=== PATIENT | female | born 1950 | race Caucasian/White ===

== ENCOUNTER → 2018-02-11 09:22 | Outpatient (CLI) | payer MEDICARE, OTHER, SELFPAY ==
[2018-02-11 10:36] LABS: Add Manual Diff / Slide Review NO; Basophils Percent Auto 0.4 % (0-2); Eosinophils Percent Auto 2.3 % (2-4); Hematocrit 42.7 % (36-46); Hemoglobin 14.7 g/dL (12.0-16.0); Lymphocytes Percent Auto 18.1 % (25-40); Mean Corpuscular HGB Conc 34.3 % (30-36); Mean Corpuscular Hemoglobin 29.9 PG (26-34); Mean Corpuscular Volume 87.1 fL (80-100); Monocytes Percent Auto 11.5 % (3-14); Neutrophils Absolute Auto 7100 /uL (3000-5900); Neutrophils Percent Auto 67.7 % (50-75); Platelet Count 259 X10^3/uL (150-400); Red Cell Distribution Width 13.4 % (11.6-14.8); White Blood Cell Count 10.4 X10^3/uL (4.5-11.0)
[2018-02-11 11:50] LABS: Alanine Aminotransferase 35 IU/L (9-52); Albumin 4.2 g/dL (3.5-5.0); Albumin Globulin Ratio 1.4 (1.0-2.8); Alkaline Phosphatase 79 U/L (38-126); Aspartate Aminotransferase 28 IU/L (14-36); BUN Creatinine Ratio 16.2 (6-22); Blood Urea Nitrogen 21 mg/dL (7-17); Calcium 9.4 mg/dL (8.4-10.2); Carbon Dioxide 32 mmol/L (22-32); Chloride 93 mmol/L (98-107); Cholesterol 135 mg/dL (140-199); Globulin 2.9 g/dL (1.7-4.1); Glucose 113 mg/dL (80-110); HDL Cholesterol 45 mg/dL (40-60); HEMOLYSIS < 15 (0-50); LDL Cholesterol Calculated 57 mg/dL (<100); Potassium 4.2 mmol/L (3.4-5.1); Sodium 136 mmol/L (137-145); Total Protein 7.1 g/dL (6.3-8.2); Triglycerides 167 mg/dL (35-150)
[2018-02-13 11:37] LABS: Hemoglobin A1C% w Est Avg Glu 6.5 % (4.0-6.0)
[2018-02-13 12:08] LABS: Thyroid Stimulating Hormone 6.34 uIU/mL (0.47-4.68)
[2018-02-13 13:49] LABS: Free T4, Direct Thyroxine 1.56 ng/dL (0.78-2.19)
== END ==
PROVIDERS: PCP Family Medicine; Visit Provider Nurse Practitioner Family
DX: I10 Essential (primary) hypertension (principal); E78.5 Hyperlipidemia, unspecified
CPT/HCPCS: 36415; 80053; 80061; 83036; 84439; 84443; 85025

== ENCOUNTER → 2018-02-13 11:17 | Outpatient (CLI) | payer MEDICARE, OTHER, SELFPAY | PROVIDERS: Family Provider Family Medicine; PCP Family Medicine; Visit Provider Nurse Practitioner Family | DX: Z00.00 Encounter for general adult medical examination without abnormal findings (principal) | CPT/HCPCS: 87086 ==

== ENCOUNTER → 2018-03-16 14:04 | Outpatient (CLI) | payer MEDICARE, OTHER, SELFPAY ==
--- NOTE | 2018-03-16 | DI.MG.S_ITS ---
BILATERAL DIGITAL SCREENING MAMMOGRAM 3D/2D WITH CAD WITH AUGMENTATION: 03/16/2018 CLINICAL: Patient presents for routine screening. S/P bilateral augmentation. Comparison is made to exams dated: 09/20/2011 mammogram and 02/18/2006 mammogram - [facility]. The tissue of both breasts is predominantly fatty. Current study was also evaluated with a Computer Aided Detection (CAD) system. Bilateral breast implants are stable. No significant masses, calcifications, or other findings are seen in either breast. There has been no significant interval change. IMPRESSION: NEGATIVE There is no mammographic evidence of malignancy. A 1 year screening mammogram is recommended. This exam was interpreted at Station ID: [id number]. NOTE: For mammograms, a report in lay terms will be sent to the patient. Approximately 15% of breast malignancies will not be visualized mammographically. In the management of a palpable breast mass, a negative mammogram must not discourage biopsy of a clinically suspicious lesion. Electronically Signed By: Angelica berger/ramon:03/16/2018 15:38:43 letter sent: Normal Exam ACR BI-RADS Category 1: Negative 3341F
== END ==
PROVIDERS: PCP Nurse Practitioner Family; Visit Provider Nurse Practitioner Family
DX: Z12.31 Encounter for screening mammogram for malignant neoplasm of breast (principal); Z78.0 Asymptomatic menopausal state; Z98.82 Breast implant status; E11.9 Type 2 diabetes mellitus without complications; Z87.891 Personal history of nicotine dependence
CPT/HCPCS: 77063; 77067; 77080

== ENCOUNTER → 2018-05-13 16:13 | Outpatient (CLI) | payer MEDICARE, OTHER, SELFPAY ==
[2018-05-13 18:36] LABS: Hemoglobin A1C% w Est Avg Glu 6.5 % (4.0-6.0)
[2018-05-13 19:02] LABS: TSH w/ Reflex to FT4 3.57 uIU/mL (0.47-4.68)
== END ==
PROVIDERS: PCP Nurse Practitioner Family; Visit Provider Registered Nurse
DX: Z00.8 Encounter for other general examination (principal); E11.9 Type 2 diabetes mellitus without complications; I10 Essential (primary) hypertension; R89.9 Unspecified abnormal finding in specimens from other organs, systems and tissues
CPT/HCPCS: 36415; 83036; 84443

== ENCOUNTER → 2018-08-12 12:24 | Outpatient (CLI) | payer MEDICARE, OTHER, SELFPAY ==
[2018-08-12 13:02] LABS: BUN Creatinine Ratio 15.7 (6-22); Blood Urea Nitrogen 22 mg/dL (7-17); Calcium 9.3 mg/dL (8.4-10.2); Carbon Dioxide 31 mmol/L (22-32); Chloride 97 mmol/L (98-107); Cholesterol 123 mg/dL (140-199); Estimated Glomerular Filt Rate 37.5 mL/min (>60); Glucose 104 mg/dL (80-110); HDL Cholesterol 45 mg/dL (40-60); HEMOLYSIS < 15 (0-50); LDL Cholesterol Calculated 56 mg/dL (<100); Potassium 3.6 mmol/L (3.4-5.1); Sodium 140 mmol/L (137-145); Triglycerides 109 mg/dL (35-150)
== END ==
PROVIDERS: Family Provider Registered Nurse; Visit Provider Internal Medicine Cardiovascular Disease
DX: I70.1 Atherosclerosis of renal artery (principal)
CPT/HCPCS: 36415; 80048; 80061

== ENCOUNTER → 2018-09-01 10:49 | Outpatient (CLI) | payer MEDICARE, OTHER, SELFPAY ==
[2018-09-01 15:03] LABS: BUN Creatinine Ratio 15.3 (6-22); Blood Urea Nitrogen 23 mg/dL (7-17); Calcium 8.8 mg/dL (8.4-10.2); Carbon Dioxide 31 mmol/L (22-32); Chloride 97 mmol/L (98-107); Estimated Glomerular Filt Rate 34.6 mL/min (>60); Glucose 109 mg/dL (80-110); HEMOLYSIS < 15 (0-50); Potassium 3.4 mmol/L (3.4-5.1); Sodium 139 mmol/L (137-145)
== END ==
PROVIDERS: PCP Student in an Organized Health Care Education/Training Program; Visit Provider Internal Medicine Cardiovascular Disease
DX: I25.119 Atherosclerotic heart disease of native coronary artery with unspecified angina pectoris (principal)
CPT/HCPCS: 36415; 80048

== ENCOUNTER → 2018-09-11 08:56 | Outpatient (CLI) | payer MEDICARE, OTHER, SELFPAY ==
[2018-09-11 09:53] LABS: BUN Creatinine Ratio 13.8 (6-22); Blood Urea Nitrogen 18 mg/dL (7-17); Carbon Dioxide 31 mmol/L (22-32); Chloride 99 mmol/L (98-107); Estimated Glomerular Filt Rate 40.9 mL/min (>60); Glucose 107 mg/dL (80-110); HEMOLYSIS < 15 (0-50); Potassium 3.6 mmol/L (3.4-5.1); Sodium 141 mmol/L (137-145)
== END ==
PROVIDERS: Family Provider Student in an Organized Health Care Education/Training Program; PCP Student in an Organized Health Care Education/Training Program; Visit Provider Internal Medicine Cardiovascular Disease
DX: I25.119 Atherosclerotic heart disease of native coronary artery with unspecified angina pectoris (principal)
CPT/HCPCS: 36415; 80048

== ENCOUNTER 2018-12-31 12:41 | Day surgery (SDC) | payer MEDICARE, OTHER, SELFPAY ==
[2018-12-31] VITALS (8 sets, daily range): BP systolic 95–122; BP diastolic 51–77; PULSE 75–86; RESP 10–15; TEMP 36.2–36.7; O2SAT 94–98; BMI 27.9
--- NOTE | 2018-12-31 | PATH_ITS ---
[facility] Accession Number: [id number] . 01 Material submitted: . PART A: gastrointestinal site - BIOPSY OF STOMACH BODY PART B: esophagus, E-G Junction - GE JUNCTION BIOPSIES PART C: colon - CECAL BIOPSY PART D: colon - RIGHT COLON POLYP . 01 Clinical history: . A: GASTRITIS . 02 Diagnosis: A. Stomach, Body, Biopsy: Body-type mucosa with mild chronic gastritis and intestinal metaplasia. Negative for Helicobacter organisms by immunohistochemistry. Negative for dysplasia and malignancy. . B. Gastroesophageal Junction, Biopsies: Squamous mucosa with reflux-related changes. Intraepithelial eosinophils are not increased. A PAS stain is negative for fungal organisms. Negative for dysplasia and malignancy. . C. Cecum, Biopsy: Colonic mucosa with no diagnostic abnormality. Negative for active, chronic and microscopic colitis. Negative for dysplasia and malignancy. . D. Right Colon, Polyp, Biopsy: Colonic mucosa with no diagnostic abnormality, consistent with polypoid redundancy. Negative for dysplasia and malignancy. . . . . . I01/04/2019 . 02 Comment: C. If the endoscopic impression of the cecal biopsy was of a polyp, no evidence of a serrated lesion or adenoma is identified, and this biopsy is most consistent with a polypoid redundancy. . . . . . 02 Electronically signed: . Cony Mckenzie MD, Pathologist NPI- [id number] . 01 Gross description: . Part A: BIOPSY OF STOMACH BODY: Received in formalin are 3 fragment(s) of arambula, soft tissue measuring 0.1 x 0.1 x 0.1 cm to 0.2 x 0.1 x 0.1 cm which is entirely submitted and submitted entirely in 1 cassette(s) Part B: GE JUNCTION BIOPSIES: Received in formalin are multiple fragment(s) of arambula, soft tissue measuring 0.1 x 0.1 x 0.1 cm to 0.2 x 0.2 x 0.2 cm which is entirely submitted and submitted entirely in 1 cassette(s) Part C: CECAL BIOPSY: Received in formalin is 1 fragment(s) of arambula, soft tissue measuring 0.1 x 0.1 x 0.1 cm which is entirely submitted and submitted entirely in 1 cassette(s) Part D: RIGHT OCLON POLYP: Received in formalin are 2 fragment(s) of arambula, soft tissue measuring 0.2 x 0.1 x 0.1 cm to 0.3 x 0.2 x 0.2 cm which is entirely submitted and submitted entirely in 1 cassette(s) /[facility] /[facility] . 02 Microscopic: . A. An immunohistochemical stain was performed to evaluate for Helicobacter organisms and is negative. The control stain showed appropriate reactivity. . B. An Alcian blue/PAS stain was performed to evaluate for fungal organisms and is negative for yeast and fungal organisms. The control stain showed appropriate reactivity. . C.-D. Additional deeper levels were examined. . * This test was developed and its performance characteristics determined by [employer]. It has not been cleared or approved by the U.S. Food and Drug Administration. The FDA has determined that such clearance or approval is not necessary. This test is used for clinical purposes. It should not be regarded as investigational or for research. . 02 Pathologist provided ICD-10: K29.70 . 02 CPT . 955986, 244579, 994521, 676918, H00950, 272340 Performed at: 01 [facility] [address] [facility], [place], [place] [id number] MD Lakhwinder Logan MD Phone: [phone] Performed at: 02 [facility] [address] [place], [place] [id number] MD Cony Mckenzie MD Phone: [phone]
--- NOTE | 2018-12-31 13:00 | PM.PREOP ---
Pre-operative Note Interval Note History & Physical reviewed/Exam performed by Physician: Yes Changes to H&P: No
[2018-12-31] MEDS: SODIUM CHLORIDE 0.9% 1,000 ML 200 ML IV (13:25)
[2018-12-31] MEDS: LIDOCAINE 4% SOLN 50 ML 20 ML TOP (13:52)
[2018-12-31] MEDS: TETRACAINE/BENZOCAINE/BUTAMBEN (CETACAINE) BOTTLE 1 SPRAY TOP (13:52)
[2018-12-31] MEDS: fentaNYL 250 MCG/5 ML INJ IV (13:54)
[2018-12-31] MEDS: MIDAZOLAM 5 MG/5 ML VIAL IV (13:54)
--- NOTE | 2018-12-31 14:40 | PM.OP.ENDO ---
Operative Date/Time/Diagnoses Date of procedure: 12/31/18 Time of procedure: 14:40 Pre-op diagnosis: 1. History of Kulkarni's 2. History of Colon Polyps Post-op diagnosis: same Procedure & Clinicians Study performed: 1. Diagnostic EGD with biopsies 2. Surveillance colonoscopy with biopsies Same procedure as scheduled: Yes Indications: 68yo F with long history of Kulkarni's and GERD symptoms. Also due for surveillance colonoscopy, had polyps at scope 5 years ago. Has a sister who had CRC, pt concerned because she says it was initially missed because it was 'higher than the scope went.' We discussed the limitations of endoscopy as well as the possibility that her sister's had to be prematurely aborted. All risks, benefits, and alternatives discussed and pt wishes to proceed. Surgeon: Rosenda Fowler Procedure Notes SCOAP/Timeout: 1353 Procedure in detail: After obtaining informed consent, the patient was brought to the GI suite and placed in the left lateral decubitus position on the examination table. After placement of appropriate monitors, the patient was given incremental doses of Versed and Fentanyl until an appropriate level of sedation was achieved. A time out was held per SCOAP protocol. A bite block was gently placed between the patient's teeth. The endoscope was lubricated and then passed into the patient's posterior oropharynx. The esophagus was cannulated under direct vision and the scope was passed to the second portion of the duodenum without difficulty. The scope was then withdrawn with careful examination of all areas of the upper GI tract and mucosa. In the stomach, the instrument was retroflexed and the GE junction examined. The scope was straightened and the procedure continued with examination of the remainder of the upper GI tract. Findings include gastritis seen as linear erosions throughout the body and greater curve; biopsy sent. Four quadrant biopsies of the GEJ were sent, evidence of inflammation but no salmon color mucosa noted. Air was aspirated from the stomach and the endoscope gently removed from the esophagus. The examination table was turned and we continued with the colonoscopy. A digital rectal examination was performed and did not reveal any masses or obstructing lesions but small external hemorrhoids are noted. The colonoscope was gently passed into the patient's anus and the entire colon navigated to the level of the cecum with minimal difficulty. Prep was adequate. Once in the cecum, the scope was slowly withdrawn being sure to go before and beyond all mucosal folds and prominences as able to get a thorough examination. A single small polyp in the right colon was noted and removed for biopsy. Other findings include a very small dark pink colored area just along the cecal ridge; noted while advancing so not thought to be scope injury. Not raised or suspicious looking but biopsied for abnormal tissue changes. At the level of the rectal vault, the scope was retroflexed and the internal anal canal was examined. The scope was straightened and air aspirated from the colon. The instrument was removed from the patient's body and the procedure was concluded. The patient was allowed to awaken from sedation without difficulty and taken to the post-anesthesia care unit in good condition. Scope withdrawal time: 10 min Findings: Kulkarni's esophagus (concern for, possibly healed as no salmon colored mucosa seen- biopsied), gastritis (linear erosions through body and greater curve as well as near fundus- biopsied), hiatal hernia (very small), polyp (right colon, 1mm, hyperplastic in appearance- biopsied) and other findings (small discolored area (dark pink) along cecal ridge, 2mm, not raised- biopsied ) Specimen(s): other (1. Gastritis 2. GEJ- 4 quadrant to evaluate for Kulkarni's 3. Cecal biopsy 4. Right colon polyp) Complications: none Impression: 1. Chronic gastritis 2. Possible Kulkarni's esophagus versus healed 3. Cecal discoloration 4. Right colon polyp- appears hyperplastic Recommendations: Colonscopy in 5 years and EGD in 3 years (pending pathology results) Follow up: weeks Disposition: PACU
== END 2018-12-31 15:40 | disposition home or self-care (01) ==
PROVIDERS: PCP Student in an Organized Health Care Education/Training Program; Visit Provider Surgery
PROC: 0DJ08ZZ Inspection of Upper Intestinal Tract, Via Natural or Artificial Opening Endoscopic (ICD-10-PCS; CPT 43235; principal; 2018-12-31 14:00)
PROC: 0DJD8ZZ Inspection of Lower Intestinal Tract, Via Natural or Artificial Opening Endoscopic (ICD-10-PCS; CPT 45378; 2018-12-31 14:00)
DX: Z86.010 Personal history of colon polyps (principal); Z87.19 Personal history of other diseases of the digestive system; Z80.0 Family history of malignant neoplasm of digestive organs; I10 Essential (primary) hypertension; E78.5 Hyperlipidemia, unspecified; K29.70 Gastritis, unspecified, without bleeding
CPT/HCPCS: 45380; 43239; 88305; 88312; 88342; J2250; J3010

== ENCOUNTER → 2019-04-12 10:37 | Outpatient (CLI) | payer MEDICARE, OTHER, SELFPAY ==
[2019-04-12 11:13] LABS: BUN Creatinine Ratio 13.1 (6-22); Blood Urea Nitrogen 21 mg/dL (7-17); Calcium 9.5 mg/dL (8.4-10.2); Carbon Dioxide 29 mmol/L (22-32); Chloride 101 mmol/L (98-107); Estimated Glomerular Filt Rate 32.1 mL/min (>60); Glucose 100 mg/dL (80-110); HEMOLYSIS < 15 (0-50); Potassium 4.1 mmol/L (3.4-5.1); Sodium 141 mmol/L (137-145)
== END ==
PROVIDERS: PCP Student in an Organized Health Care Education/Training Program; Visit Provider Internal Medicine Cardiovascular Disease
DX: I10 Essential (primary) hypertension (principal)
CPT/HCPCS: 36415; 80048

== ENCOUNTER → 2019-05-17 11:33 | Outpatient (CLI) | payer MEDICARE, OTHER, SELFPAY ==
[2019-05-17 13:48] LABS: BUN Creatinine Ratio 11.3 (6-22); Blood Urea Nitrogen 18 mg/dL (7-17); Calcium 9.8 mg/dL (8.4-10.2); Carbon Dioxide 29 mmol/L (22-32); Chloride 101 mmol/L (98-107); Estimated Glomerular Filt Rate 32.1 mL/min (>60); Glucose 95 mg/dL (80-110); HEMOLYSIS < 15 (0-50); Potassium 4.6 mmol/L (3.4-5.1); Sodium 142 mmol/L (137-145)
== END ==
PROVIDERS: PCP Student in an Organized Health Care Education/Training Program; Visit Provider Internal Medicine Cardiovascular Disease
DX: I10 Essential (primary) hypertension (principal)
CPT/HCPCS: 36415; 80048

== ENCOUNTER → 2019-05-26 11:06 | Outpatient (CLI) | payer MEDICARE, OTHER, SELFPAY ==
[2019-05-26 11:47] LABS: Hemoglobin A1C% w Est Avg Glu 5.6 % (4.0-6.0)
== END ==
PROVIDERS: PCP Student in an Organized Health Care Education/Training Program; Visit Provider Student in an Organized Health Care Education/Training Program
DX: E11.9 Type 2 diabetes mellitus without complications (principal)
CPT/HCPCS: 36415; 83036

== ENCOUNTER → 2019-08-13 10:20 | Outpatient (CLI) | payer MEDICARE, OTHER, SELFPAY ==
[2019-08-13 10:45] LABS: Bacteria Urine None Seen; RBC Urine None Seen (0-5/HPF)
[2019-08-13 11:15] LABS: Add Manual Diff / Slide Review NO; Basophils Absolute Auto 0 /uL (0-100); Basophils Percent Auto 0.6 % (0-2); Eosinophils Absolute Auto 200 /uL (0-450); Eosinophils Percent Auto 2.7 % (2-4); Hematocrit 40.6 % (36-46); Hemoglobin 13.7 g/dL (12.0-16.0); Lymphocytes Absolute Auto 1300 /uL (1100-4500); Lymphocytes Percent Auto 18.1 % (25-40); Mean Corpuscular HGB Conc 33.9 % (30-36); Mean Corpuscular Hemoglobin 29.5 PG (26-34); Mean Corpuscular Volume 87.2 fL (80-100); Monocytes Absolute Auto 800 /uL (0-900); Monocytes Percent Auto 11.2 % (3-14); Neutrophils Absolute Auto 4900 /uL (1500-7000); Neutrophils Percent Auto 67.4 % (50-75); Platelet Count 259 X10^3/uL (150-400); Red Blood Cell Count 4.65 X10^6/uL (4.0-5.2); Red Cell Distribution Width 13.7 % (11.6-14.8); White Blood Cell Count 7.2 X10^3/uL (4.5-11.0)
[2019-08-13 11:30] LABS: Albumin 4.3 g/dL (3.5-5.0); BUN Creatinine Ratio 10.7 (6-22); Blood Urea Nitrogen 16 mg/dL (7-17); Calcium 9.5 mg/dL (8.4-10.2); Carbon Dioxide 29 mmol/L (22-32); Chloride 104 mmol/L (98-107); Estimated Glomerular Filt Rate 34.5 mL/min (>60); Glucose 97 mg/dL (80-110); HEMOLYSIS < 15 (0-50); Magnesium 1.9 mg/dL (1.6-2.3); Phosphorous 3.9 mg/dL (2.8-4.1); Potassium 4.3 mmol/L (3.4-5.1); Sodium 142 mmol/L (137-145); Uric Acid 6.9 mg/dL (2.5-6.2)
[2019-08-13 12:04] LABS: Vitamin D 25 Hydroxy (D3) 33.2 ng/mL (30.0-100.0)
[2019-08-13 12:50] LABS: Appearance Urine UA CLEAR; Bilirubin Urine UA NEGATIVE (NEGATIVE); Color Urine UA YELLOW; Glucose Urine UA NEGATIVE (Negative); Ketones Urine UA NEGATIVE (NEGATIVE); Leukocyte Esterase Urine UA NEGATIVE (NEGATIVE); Nitrite Urine UA NEGATIVE (Negative); Occult Blood Urine UA NEGATIVE (Negative); Protein Urine UA NEGATIVE (Negative); Urobilinogen Urine UA 0.2 E.U./dL (0.2)
[2019-08-13 13:01] LABS: Squamous Epithelial Cell Urine 1-5 /HPF (0-5/HPF); WBC Urine 0-1/HPF (0-5/HPF)
[2019-08-13 13:02] LABS: Culture Indicated Urine Cult Not Indicated; Granular Casts Urine 0-1/LPF; Hyaline Casts Urine 5-10/LPF; Mucus Urine 1+ (Negative)
[2019-08-13 18:04] LABS: Microalbumi Creatinin Ratio Ur 61.6 ug/mg CR (<30); Microalbumin Urine Random 6.9 mg/dL (0-1.6)
[2019-08-17 15:48] LABS: Parathyroid Hormone Int 18 pg/mL (14-64)
== END ==
PROVIDERS: Family Provider Student in an Organized Health Care Education/Training Program; PCP Student in an Organized Health Care Education/Training Program; Referring Provider Internal Medicine Cardiovascular Disease; Visit Provider Internal Medicine Nephrology
DX: N18.4 Chronic kidney disease, stage 4 (severe) (principal)
CPT/HCPCS: 36415; 80069; 81001; 82043; 82306; 82570; 83735; 83970; 84550; 85025

== ENCOUNTER → 2019-09-03 10:27 | Outpatient (CLI) | payer MEDICARE, OTHER, SELFPAY ==
[2019-09-03 16:16] LABS: Protein (Total) Urine Random 13 mg/dL (0-12); Protein Creatinine Ratio Urine 0.11 GRAM/24H
== END ==
PROVIDERS: Family Provider Student in an Organized Health Care Education/Training Program; PCP Student in an Organized Health Care Education/Training Program; Visit Provider Internal Medicine Nephrology
DX: R80.9 Proteinuria, unspecified (principal)
CPT/HCPCS: 82570; 84156

== ENCOUNTER → 2019-12-20 11:06 | Outpatient (CLI) | payer MEDICARE, OTHER, SELFPAY ==
[2019-12-20 14:53] LABS: Add Manual Diff / Slide Review NO; Basophils Absolute Auto 0 /uL (0-100); Basophils Percent Auto 0.6 % (0-2); Eosinophils Absolute Auto 100 /uL (0-450); Hematocrit 42.2 % (36-46); Hemoglobin 14.6 g/dL (12.0-16.0); Lymphocytes Absolute Auto 1200 /uL (1100-4500); Lymphocytes Percent Auto 16.2 % (25-40); Mean Corpuscular HGB Conc 34.5 % (30-36); Monocytes Absolute Auto 700 /uL (0-900); Monocytes Percent Auto 10.2 % (3-14); Neutrophils Absolute Auto 5200 /uL (1500-7000); Platelet Count 250 X10^3/uL (150-400); Red Blood Cell Count 4.86 X10^6/uL (4.0-5.2); Red Cell Distribution Width 13.5 % (11.6-14.8); White Blood Cell Count 7.3 X10^3/uL (4.5-11.0)
[2019-12-20 16:55] LABS: BUN Creatinine Ratio 11.6 (6-22); Blood Urea Nitrogen 17 mg/dL (7-17); Calcium 9.5 mg/dL (8.4-10.2); Carbon Dioxide 29 mmol/L (22-32); Chloride 102 mmol/L (98-107); Estimated Glomerular Filt Rate 35.3 mL/min (>60); Glucose 85 mg/dL (80-110); HEMOLYSIS 17 (0-50); Magnesium 1.9 mg/dL (1.6-2.3); Phosphorous 3.2 mg/dL (2.8-4.1); Potassium 3.6 mmol/L (3.4-5.1); Sodium 142 mmol/L (137-145); Uric Acid 7.5 mg/dL (2.5-6.2)
[2019-12-20 17:05] LABS: Creatinine Urine Random 113.5 mg/dL
[2019-12-20 17:09] LABS: Microalbumi Creatinin Ratio Ur 95.1 ug/mg CR (<30); Microalbumin Urine Random 10.8 mg/dL (0-1.6)
[2019-12-20 17:20] LABS: Vitamin D 25 Hydroxy (D3) 35.2 ng/mL (30.0-100.0)
[2019-12-21 08:19] LABS: Parathyroid Hormone Int 79 pg/mL (15-65)
== END ==
PROVIDERS: Family Provider Student in an Organized Health Care Education/Training Program; PCP Student in an Organized Health Care Education/Training Program; Referring Provider Internal Medicine Nephrology; Visit Provider Internal Medicine Nephrology
DX: R80.9 Proteinuria, unspecified (principal)
CPT/HCPCS: 36415; 80048; 82043; 82306; 82570; 83735; 83970; 84100; 84550; 85025

== ENCOUNTER → 2020-02-08 11:19 | Outpatient (CLI) | payer MEDICARE, OTHER, SELFPAY ==
[2020-02-08 12:31] LABS: Hemoglobin A1C% w Est Avg Glu 5.8 % (4.0-6.0)
[2020-02-08 12:32] LABS: Cholesterol 111 mg/dL (140-199); HDL Cholesterol 39 mg/dL (40-60); LDL Cholesterol Calculated 52 mg/dL (<100); Triglycerides 98 mg/dL (35-150)
== END ==
PROVIDERS: Family Provider Student in an Organized Health Care Education/Training Program; PCP Student in an Organized Health Care Education/Training Program; Referring Provider Student in an Organized Health Care Education/Training Program; Visit Provider Student in an Organized Health Care Education/Training Program
DX: E11.9 Type 2 diabetes mellitus without complications (principal); E78.2 Mixed hyperlipidemia
CPT/HCPCS: 36415; 80061; 83036

== ENCOUNTER → 2020-03-02 11:59 | Outpatient (CLI) | payer MEDICARE, OTHER, SELFPAY ==
--- NOTE | 2020-03-02 | DI.MG.S_ITS ---
BILATERAL DIGITAL SCREENING MAMMOGRAM 3D/2D WITH CAD WITH AUGMENTATION: 03/02/2020 CLINICAL: Routine screening. Comparison is made to exams dated: 03/16/2018 mammogram, 09/20/2011 mammogram, and 02/18/2006 mammogram - [facility]. The tissue of both breasts is predominantly fatty. Current study was also evaluated with a Computer Aided Detection (CAD) system. Bilateral breast implants are present. No significant masses, calcifications, or other findings are seen in either breast. There has been no significant interval change. IMPRESSION: NEGATIVE There is no mammographic evidence of malignancy. A 1 year screening mammogram is recommended. This exam was interpreted at Station ID: [id number]. NOTE: For mammograms, a report in lay terms will be sent to the patient. Approximately 15% of breast malignancies will not be visualized mammographically. In the management of a palpable breast mass, a negative mammogram must not discourage biopsy of a clinically suspicious lesion. Electronically Signed By: Samir rosales/ramon:03/02/2020 17:12:00 letter sent: Normal Exam ACR BI-RADS Category 1: Negative 3341F
== END ==
PROVIDERS: Family Provider Student in an Organized Health Care Education/Training Program; PCP Student in an Organized Health Care Education/Training Program; Referring Provider Student in an Organized Health Care Education/Training Program; Visit Provider Student in an Organized Health Care Education/Training Program
DX: Z12.31 Encounter for screening mammogram for malignant neoplasm of breast (principal); Z13.820 Encounter for screening for osteoporosis; M85.852 Other specified disorders of bone density and structure, left thigh; Z78.0 Asymptomatic menopausal state; Z91.89 Other specified personal risk factors, not elsewhere classified; Z87.891 Personal history of nicotine dependence
CPT/HCPCS: 77063; 77067; 77080

== ENCOUNTER → 2020-04-17 09:45 | Outpatient (CLI) | payer MEDICARE, OTHER, SELFPAY ==
[2020-04-17 10:03] LABS: Bacteria Urine None Seen; RBC Urine None Seen (0-5/HPF)
[2020-04-17 11:09] LABS: BUN Creatinine Ratio 11.5 (6-22); Blood Urea Nitrogen 18 mg/dL (7-17); Calcium 9.2 mg/dL (8.4-10.2); Carbon Dioxide 31 mmol/L (22-32); Chloride 103 mmol/L (98-107); Estimated Glomerular Filt Rate 32.7 mL/min (>60); Glucose 98 mg/dL (80-110); HEMOLYSIS < 15 (0-50); Magnesium 1.9 mg/dL (1.6-2.3); Phosphorous 3.8 mg/dL (2.8-4.1); Potassium 4.7 mmol/L (3.4-5.1); Sodium 140 mmol/L (137-145); Uric Acid 6.9 mg/dL (2.5-6.2)
[2020-04-17 11:23] LABS: Vitamin D 25 Hydroxy (D3) 27.9 ng/mL (30.0-100.0)
[2020-04-17 12:12] LABS: Microalbumi Creatinin Ratio Ur 193.3 ug/mg CR (<30); Microalbumin Urine Random 69.6 mg/dL (0-1.6)
[2020-04-17 13:17] LABS: Appearance Urine UA CLEAR; Bilirubin Urine UA NEGATIVE (NEGATIVE); Color Urine UA YELLOW; Glucose Urine UA NEGATIVE (Negative); Ketones Urine UA NEGATIVE (NEGATIVE); Leukocyte Esterase Urine UA NEGATIVE (NEGATIVE); Nitrite Urine UA NEGATIVE (Negative); Occult Blood Urine UA NEGATIVE (Negative); Protein Urine UA 2+ (Negative); Urobilinogen Urine UA 0.2 E.U./dL (0.2)
[2020-04-17 13:25] LABS: WBC Urine 1-5/HPF (0-5/HPF)
[2020-04-17 13:26] LABS: Culture Indicated Urine Cult Not Indicated; Hyaline Casts Urine 1-5/LPF; Squamous Epithelial Cell Urine 0-1 /HPF (0-5/HPF)
[2020-04-18 06:36] LABS: Parathyroid Hormone Int 56 pg/mL (15-65)
== END ==
PROVIDERS: Family Provider Student in an Organized Health Care Education/Training Program; PCP Student in an Organized Health Care Education/Training Program; Referring Provider Internal Medicine Nephrology; Visit Provider Internal Medicine Nephrology
DX: N18.3 Chronic kidney disease, stage 3 (moderate) (principal)
CPT/HCPCS: 36415; 80048; 81001; 82043; 82306; 82570; 83735; 83970; 84100; 84550

== ENCOUNTER → 2020-06-19 10:32 | Outpatient (CLI) | payer MEDICARE, OTHER, SELFPAY ==
[2020-06-19 10:51] LABS: RBC Urine None Seen (0-5/HPF)
[2020-06-19 11:32] LABS: Appearance Urine UA CLEAR; Bilirubin Urine UA 1+ (NEGATIVE); Color Urine UA YELLOW; Glucose Urine UA NEGATIVE (Negative); Ketones Urine UA TRACE (NEGATIVE); Leukocyte Esterase Urine UA NEGATIVE (NEGATIVE); Nitrite Urine UA NEGATIVE (Negative); Occult Blood Urine UA NEGATIVE (Negative); Protein Urine UA 1+ (Negative); Urobilinogen Urine UA 0.2 E.U./dL (0.2)
[2020-06-19 11:46] LABS: Ictotest Urine Negative (Negative); Squamous Epithelial Cell Urine 5-10 /HPF (0-5/HPF); WBC Urine 1-5/HPF (0-5/HPF)
[2020-06-19 11:47] LABS: Bacteria Urine Few (2-10); Culture Indicated Urine Cult Not Indicated; Hyaline Casts Urine 30-100/LPF
[2020-06-19 12:08] LABS: BUN Creatinine Ratio 10.6 (6-22); Blood Urea Nitrogen 18 mg/dL (7-17); Carbon Dioxide 31 mmol/L (22-32); Chloride 103 mmol/L (98-107); Estimated Glomerular Filt Rate 29.8 mL/min (>60); Glucose 99 mg/dL (80-110); HEMOLYSIS < 15 (0-50); Magnesium 1.9 mg/dL (1.6-2.3); Phosphorous 3.8 mg/dL (2.8-4.1); Potassium 3.8 mmol/L (3.4-5.1); Sodium 139 mmol/L (137-145); Uric Acid 7.4 mg/dL (2.5-6.2)
[2020-06-19 12:10] LABS: Microalbumin Urine Random 15.2 mg/dL (0-1.6)
[2020-06-19 12:19] LABS: Vitamin D 25 Hydroxy (D3) 34.3 ng/mL (30.0-100.0)
[2020-06-19 12:36] LABS: Creatinine Urine Random 351.7 mg/dL; Microalbumi Creatinin Ratio Ur 43.2 ug/mg CR (<30)
[2020-06-20 07:18] LABS: Parathyroid Hormone Int 110 pg/mL (15-65)
== END ==
PROVIDERS: Family Provider Student in an Organized Health Care Education/Training Program; PCP Student in an Organized Health Care Education/Training Program; Referring Provider Physician Assistant; Visit Provider Physician Assistant
DX: N18.30 Chronic kidney disease, stage 3 unspecified (principal)
CPT/HCPCS: 36415; 80048; 81001; 82043; 82306; 82570; 83735; 83970; 84100; 84550

== ENCOUNTER → 2020-09-12 09:27 | Outpatient (CLI) | payer MEDICARE, OTHER, SELFPAY ==
[2020-09-12 09:48] LABS: RBC Urine None Seen (0-5/HPF)
[2020-09-12 10:37] LABS: BUN Creatinine Ratio 11.5 (6-22); Blood Urea Nitrogen 17 mg/dL (7-17); Calcium 8.8 mg/dL (8.4-10.2); Carbon Dioxide 32 mmol/L (22-32); Chloride 103 mmol/L (98-107); Glucose 120 mg/dL (80-110); HEMOLYSIS < 15 (0-50); Magnesium 1.8 mg/dL (1.6-2.3); Phosphorous 3.7 mg/dL (2.8-4.1); Potassium 3.8 mmol/L (3.4-5.1); Sodium 137 mmol/L (137-145); Uric Acid 7.2 mg/dL (2.5-6.2)
[2020-09-12 11:08] LABS: Vitamin D 25 Hydroxy (D3) 22.5 ng/mL (30.0-100.0)
[2020-09-12 11:29] LABS: Appearance Urine UA CLEAR; Bilirubin Urine UA NEGATIVE (NEGATIVE); Color Urine UA YELLOW; Glucose Urine UA NEGATIVE (Negative); Ketones Urine UA NEGATIVE (NEGATIVE); Leukocyte Esterase Urine UA TRACE (NEGATIVE); Nitrite Urine UA NEGATIVE (Negative); Occult Blood Urine UA NEGATIVE (Negative); Protein Urine UA TRACE (Negative); Urobilinogen Urine UA 0.2 E.U./dL (0.2)
[2020-09-12 12:05] LABS: Bacteria Urine Few (2-10); Squamous Epithelial Cell Urine 1-5 /HPF (0-5/HPF); Transitional Epi Cells Urine 0-1/HPF (0-5/HPF); WBC Urine 1-5/HPF (0-5/HPF)
[2020-09-12 12:14] LABS: Creatinine Urine Random 98.8 mg/dL
[2020-09-12 12:18] LABS: Microalbumi Creatinin Ratio Ur 145.7 ug/mg CR (<30); Microalbumin Urine Random 14.4 mg/dL (0-1.6)
[2020-09-13 12:49] LABS: Parathyroid Hormone Int 106 pg/mL (15-65)
== END ==
PROVIDERS: Family Provider Student in an Organized Health Care Education/Training Program; PCP Student in an Organized Health Care Education/Training Program; Referring Provider Internal Medicine Nephrology; Visit Provider Internal Medicine Nephrology
DX: N18.32 Chronic kidney disease, stage 3b (principal)
CPT/HCPCS: 36415; 80048; 81001; 82043; 82306; 82570; 83735; 83970; 84100; 84550

== ENCOUNTER → 2021-01-09 10:12 | Outpatient (CLI) | payer MEDICARE, OTHER, SELFPAY ==
[2021-01-09 10:43] LABS: RBC Urine None Seen (0-5/HPF)
[2021-01-09 11:26] LABS: Appearance Urine UA CLEAR; Bilirubin Urine UA NEGATIVE (NEGATIVE); Color Urine UA YELLOW; Glucose Urine UA NEGATIVE (Negative); Ketones Urine UA NEGATIVE (NEGATIVE); Leukocyte Esterase Urine UA NEGATIVE (NEGATIVE); Nitrite Urine UA NEGATIVE (Negative); Occult Blood Urine UA NEGATIVE (Negative); Protein Urine UA TRACE (Negative); Specific Gravity Urine UA 1.025 (1.000-1.035); Urobilinogen Urine UA 0.2 E.U./dL (0.2)
[2021-01-09 11:31] LABS: Add Manual Diff / Slide Review NO; Basophils Absolute Auto 100 /uL (0-100); Basophils Percent Auto 0.7 % (0-2); Eosinophils Absolute Auto 200 /uL (0-450); Hematocrit 40.1 % (36-46); Hemoglobin 13.5 g/dL (12.0-16.0); Lymphocytes Absolute Auto 1100 /uL (1100-4500); Lymphocytes Percent Auto 15.7 % (25-40); Mean Corpuscular HGB Conc 33.7 % (30-36); Mean Corpuscular Hemoglobin 28.6 PG (26-34); Mean Corpuscular Volume 85.1 fL (80-100); Monocytes Absolute Auto 800 /uL (0-900); Monocytes Percent Auto 11.3 % (3-14); Neutrophils Absolute Auto 5000 /uL (1500-7000); Neutrophils Percent Auto 69.3 % (50-75); Platelet Count 243 X10^3/uL (150-400); Red Blood Cell Count 4.71 X10^6/uL (4.0-5.2); Red Cell Distribution Width 13.9 % (11.6-14.8); White Blood Cell Count 7.3 X10^3/uL (4.5-11.0)
[2021-01-09 11:37] LABS: pH Urine UA 5.5 (4.5-8.0)
[2021-01-09 11:41] LABS: Squamous Epithelial Cell Urine 1-5 /HPF (0-5/HPF); WBC Urine 1-5/HPF (0-5/HPF)
[2021-01-09 11:42] LABS: Bacteria Urine Few (2-10); Culture Indicated Urine Cult Not Indicated; Hyaline Casts Urine 10-30/LPF
[2021-01-09 11:55] LABS: BUN Creatinine Ratio 14.1 (6-22); Blood Urea Nitrogen 22 mg/dL (7-17); Calcium 9.3 mg/dL (8.4-10.2); Carbon Dioxide 27 mmol/L (22-32); Chloride 105 mmol/L (98-107); Estimated Glomerular Filt Rate 32.9 mL/min (>60); Glucose 118 mg/dL (80-110); HEMOLYSIS < 15 (0-50); Potassium 3.9 mmol/L (3.4-5.1); Sodium 137 mmol/L (137-145); Uric Acid 7.6 mg/dL (2.5-6.2)
[2021-01-09 11:56] LABS: Creatinine Urine Random 222.4 mg/dL
[2021-01-09 11:59] LABS: Microalbumi Creatinin Ratio Ur 29.6 ug/mg CR (<30); Microalbumin Urine Random 6.6 mg/dL (0-1.6)
[2021-01-09 12:08] LABS: Vitamin D 25 Hydroxy (D3) 34.7 ng/mL (30.0-100.0)
[2021-01-10 08:42] LABS: Parathyroid Hormone Int 100 pg/mL (15-65)
== END ==
PROVIDERS: Family Provider Student in an Organized Health Care Education/Training Program; PCP Student in an Organized Health Care Education/Training Program; Referring Provider Internal Medicine Nephrology; Visit Provider Internal Medicine Nephrology
DX: N18.32 Chronic kidney disease, stage 3b (principal); N18.9 Chronic kidney disease, unspecified; M89.9 Disorder of bone, unspecified; R80.9 Proteinuria, unspecified; E55.9 Vitamin D deficiency, unspecified
CPT/HCPCS: 36415; 80048; 81001; 82043; 82306; 82570; 83970; 84550; 85025

== ENCOUNTER → 2021-05-10 09:14 | Outpatient (CLI) | payer MEDICARE, OTHER, SELFPAY ==
[2021-05-10 10:26] LABS: Add Manual Diff / Slide Review NO; Basophils Absolute Auto 100 /uL (0-100); Basophils Percent Auto 1.4 % (0-2); Eosinophils Absolute Auto 200 /uL (0-450); Hematocrit 42.1 % (36-46); Hemoglobin 13.8 g/dL (12.0-16.0); Lymphocytes Absolute Auto 1300 /uL (1100-4500); Lymphocytes Percent Auto 16.1 % (25-40); Mean Corpuscular HGB Conc 32.8 % (30-36); Mean Corpuscular Hemoglobin 27.9 PG (26-34); Mean Corpuscular Volume 85.3 fL (80-100); Monocytes Absolute Auto 1000 /uL (0-900); Monocytes Percent Auto 11.7 % (3-14); Neutrophils Absolute Auto 5500 /uL (1500-7000); Neutrophils Percent Auto 67.8 % (50-75); Platelet Count 284 X10^3/uL (150-400); Red Blood Cell Count 4.94 X10^6/uL (4.0-5.2); Red Cell Distribution Width 14.3 % (11.6-14.8); White Blood Cell Count 8.1 X10^3/uL (4.5-11.0)
[2021-05-10 10:39] LABS: BUN Creatinine Ratio 13.6 (6-22); Blood Urea Nitrogen 19 mg/dL (7-17); Carbon Dioxide 30 mmol/L (22-32); Chloride 103 mmol/L (98-107); Estimated Glomerular Filt Rate 37.2 mL/min (>60); Glucose 118 mg/dL (80-110); HEMOLYSIS 29 (0-50); Magnesium 1.8 mg/dL (1.6-2.3); Phosphorous 3.2 mg/dL (2.8-4.1); Potassium 4.1 mmol/L (3.4-5.1); Sodium 140 mmol/L (137-145); Uric Acid 7.7 mg/dL (2.5-6.2)
[2021-05-10 10:54] LABS: Vitamin D 25 Hydroxy (D3) 26.8 ng/mL (30.0-100.0)
[2021-05-10 11:01] LABS: Appearance Urine UA CLEAR; Bilirubin Urine UA NEGATIVE (NEGATIVE); Color Urine UA YELLOW; Glucose Urine UA NEGATIVE (Negative); Ketones Urine UA NEGATIVE (NEGATIVE); Leukocyte Esterase Urine UA TRACE (NEGATIVE); Nitrite Urine UA NEGATIVE (Negative); Occult Blood Urine UA NEGATIVE (Negative); Protein Urine UA NEGATIVE (Negative); Specific Gravity Urine UA 1.015 (1.000-1.035); Urobilinogen Urine UA 0.2 E.U./dL (0.2)
[2021-05-10 11:15] LABS: Bacteria Urine Moderate (10-30); Culture Indicated Urine Specimen Cultured; RBC Urine 0-1/HPF (0-5/HPF); Squamous Epithelial Cell Urine 1-5 /HPF (0-5/HPF); WBC Urine 1-5/HPF (0-5/HPF)
[2021-05-10 11:50] LABS: Creatinine Urine Random 131.1 mg/dL
[2021-05-10 11:54] LABS: Microalbumin Urine Random 4.2 mg/dL (0-1.6)
[2021-05-11 08:11] LABS: Parathyroid Hormone Int 133 pg/mL (15-65)
== END ==
PROVIDERS: Family Provider Student in an Organized Health Care Education/Training Program; PCP Student in an Organized Health Care Education/Training Program; Referring Provider Internal Medicine Nephrology; Visit Provider Internal Medicine Nephrology
DX: N18.32 Chronic kidney disease, stage 3b (principal)
CPT/HCPCS: 36415; 80048; 81001; 82043; 82306; 82570; 83735; 83970; 84100; 84550; 85025; 87086

== ENCOUNTER → 2021-07-05 14:30 | Outpatient (CLI) | payer MEDICARE, OTHER, SELFPAY ==
--- NOTE | 2021-07-05 14:33 | DI.US.S_ITS ---
PROCEDURE: US CAROTID DOPPLER BI INDICATIONS: MIGRAINE. CEREBROVASCULAR ACCIDENT. TECHNIQUE: Color and pulse Doppler interrogation was performed of both carotid systems, with image documentation and velocity measurements. COMPARISON: None. FINDINGS: Stenosis calculations are based on SRU (Society of Radiologists in Ultrasound) criteria. Right side: Brachial blood pressure: 142/86 mm Hg. Common carotid artery peak systolic velocity: 94 cm/sec. Internal carotid artery peak systolic velocity: 196 cm/sec. Internal carotid artery end diastolic velocity: 54 cm/sec. External carotid artery peak systolic velocity: 140 cm/sec. ICA/CCA peak systolic ratio: 2.1 . Early scale imaging description: Multiple soft and calcified plaques identified in the distal common carotid artery and at the carotid bifurcation extending into the origin of the intracranial carotid artery, producing 50-69 percent stenosis. Percent internal carotid artery stenosis: 50-60 percent stenosis of the right ICA origin. Approximately 50 percent narrowing of the bifurcation and the distal common carotid artery near the bifurcation. Vertebral artery: Flow direction is antegrade. Left side: Brachial blood pressure: 162/81 mm Hg. Common carotid artery peak systolic velocity: 115 cm/sec. Internal carotid artery peak systolic velocity: 98 cm/sec. Internal carotid artery end diastolic velocity: 31 cm/sec. External carotid artery peak systolic velocity: 189 cm/sec. ICA/CCA peak systolic ratio: 0.9 . Early scale imaging description: Mixed soft and calcified plaque in the distal common carotid artery, the carotid bifurcation, and at the origin of the right ICA. Percent internal carotid artery stenosis: Approximately 50 percent stenosis of the left common carotid artery terminus and bifurcation. Less than 50 percent stenosis of the left ICA origin.. Vertebral artery: Flow direction is antegrade. IMPRESSION: Moderate approximately 50-69 percent stenosis of the right ICA and right carotid bifurcation. Dictated by: Ming Moreno M.D. on 07/05/2021 at 16:45 Approved by: Ming Moreno M.D. on 07/05/2021 at 17:01
== END ==
PROVIDERS: Family Provider Student in an Organized Health Care Education/Training Program; PCP Student in an Organized Health Care Education/Training Program; Referring Provider Student in an Organized Health Care Education/Training Program; Visit Provider Student in an Organized Health Care Education/Training Program
DX: G43.109 Migraine with aura, not intractable, without status migrainosus (principal); I65.23 Occlusion and stenosis of bilateral carotid arteries; I63.9 Cerebral infarction, unspecified
CPT/HCPCS: 93880

== ENCOUNTER → 2021-08-01 10:51 | Outpatient (CLI) | payer MEDICARE, OTHER, SELFPAY ==
[2021-08-01 14:00] LABS: COVID19 -Nasal RAPID Negative (Negative)
== END ==
PROVIDERS: Family Provider Student in an Organized Health Care Education/Training Program; PCP Student in an Organized Health Care Education/Training Program; Referring Provider Internal Medicine; Visit Provider Internal Medicine
DX: Z20.822 Contact with and (suspected) exposure to COVID-19 (principal)
CPT/HCPCS: 87635; C9803

== ENCOUNTER → 2021-08-02 06:52 | Outpatient (CLI) | payer MEDICARE, OTHER, SELFPAY ==
--- NOTE | 2021-08-08 08:07 | P.PFT.S_ITS ---
Pulmonary Function Test Referral & Results Date Patient Seen: 08/02/21 Requesting provider: Vahid Ott Indication: Dyspnea Results: The spirometry demonstrates an FVC of 2.09 L which is 70% of predicted. The FEV1 was measured at 1.31 L which is 58% of predicted. The FEV1/FVC ratio was 63 which is 82% of predicted. Following the administration of bronchodilator there was a 48% improvement in FEF 25-75%. Lung volumes show an SVC of 2.34 L which is 82% of predicted. The diffusing capacity was measured at 11.0 which is 45% of predicted. No hemoglobin value was provided, so no correction for potential anemia could be made, if appropriate. The maximum voluntary ventilation was reduced Interpretation: This study demonstrates mild to moderate obstructive lung disease based on reduction FEV1 and a lesser reduction FEV1/FVC ratio. There is some evidence of benefit following bronchodilator administration based on improvement in small ai rway flow as above with change in FEF 25-75% There is a very mild reduction in lung volumes suggesting mild restrictive lung disease There is also moderate reduction diffusing capacity suggesting disease at the capillary alveolar level This is consistent with a diagnosis of COPD Clinical correlation suggested
== END ==
PROVIDERS: Family Provider Student in an Organized Health Care Education/Training Program; PCP Student in an Organized Health Care Education/Training Program; Referring Provider Student in an Organized Health Care Education/Training Program; Visit Provider Student in an Organized Health Care Education/Training Program
DX: J44.9 Chronic obstructive pulmonary disease, unspecified (principal); R06.00 Dyspnea, unspecified; Z87.891 Personal history of nicotine dependence
CPT/HCPCS: 94060; 94726; 94729

== ENCOUNTER → 2021-09-07 08:43 | Outpatient (CLI) | payer MEDICARE, OTHER, SELFPAY ==
[2021-09-07 10:13] LABS: Hemoglobin A1C% w Est Avg Glu 6.3 % (4.0-6.0)
[2021-09-07 10:23] LABS: Cholesterol 136 mg/dL (140-199); HDL Cholesterol 36 mg/dL (40-60); LDL Cholesterol Calculated 71 mg/dL (<100); Triglycerides 146 mg/dL (35-150)
[2021-09-07 10:41] LABS: Add Manual Diff / Slide Review NO; Basophils Absolute Auto 0 /uL (0-100); Basophils Percent Auto 0.5 % (0-2); Eosinophils Absolute Auto 300 /uL (0-450); Hematocrit 37.5 % (36-46); Hemoglobin 12.7 g/dL (12.0-16.0); Lymphocytes Absolute Auto 1300 /uL (1100-4500); Lymphocytes Percent Auto 15.7 % (25-40); Mean Corpuscular HGB Conc 33.8 % (30-36); Mean Corpuscular Hemoglobin 28.1 PG (26-34); Mean Corpuscular Volume 83.1 fL (80-100); Monocytes Absolute Auto 1000 /uL (0-900); Monocytes Percent Auto 11.6 % (3-14); Neutrophils Absolute Auto 5800 /uL (1500-7000); Neutrophils Percent Auto 69.2 % (50-75); Platelet Count 273 X10^3/uL (150-400); Red Blood Cell Count 4.51 X10^6/uL (4.0-5.2); Red Cell Distribution Width 14.6 % (11.6-14.8); White Blood Cell Count 8.4 X10^3/uL (4.5-11.0)
[2021-09-07 10:52] LABS: Creatinine Urine Random 95.4 mg/dL
[2021-09-07 10:54] LABS: BUN Creatinine Ratio 14.8 (6-22); Blood Urea Nitrogen 23 mg/dL (7-17); Calcium 9.2 mg/dL (8.4-10.2); Carbon Dioxide 30 mmol/L (22-32); Chloride 101 mmol/L (98-107); Estimated Glomerular Filt Rate 33.1 mL/min (>60); Glucose 95 mg/dL (80-110); HEMOLYSIS < 15 (0-50); Magnesium 1.8 mg/dL (1.6-2.3); Phosphorous 3.8 mg/dL (2.8-4.1); Potassium 3.9 mmol/L (3.4-5.1); Sodium 139 mmol/L (137-145); Uric Acid 6.7 mg/dL (2.5-6.2)
[2021-09-07 10:58] LABS: Microalbumi Creatinin Ratio Ur 82.8 ug/mg CR (<30); Microalbumin Urine Random 7.9 mg/dL (0-1.6)
[2021-09-07 11:09] LABS: Vitamin D 25 Hydroxy (D3) 34.1 ng/mL (30.0-100.0)
[2021-09-08 08:52] LABS: Parathyroid Hormone Int 168 pg/mL (15-65)
== END ==
PROVIDERS: Family Provider Student in an Organized Health Care Education/Training Program; PCP Student in an Organized Health Care Education/Training Program; Referring Provider Student in an Organized Health Care Education/Training Program; Visit Provider Student in an Organized Health Care Education/Training Program
DX: E11.9 Type 2 diabetes mellitus without complications (principal); E78.5 Hyperlipidemia, unspecified; N18.32 Chronic kidney disease, stage 3b; I63.9 Cerebral infarction, unspecified
CPT/HCPCS: 36415; 80048; 80061; 82043; 82306; 82570; 83036; 83735; 83970; 84100; 84550; 85025

== ENCOUNTER → 2022-01-09 08:53 | Outpatient (CLI) | payer MEDICARE, OTHER, SELFPAY ==
[2022-01-09 10:13] LABS: Add Manual Diff / Slide Review NO; Basophils Absolute Auto 100 /uL (0-100); Basophils Percent Auto 0.7 % (0-2); Eosinophils Absolute Auto 200 /uL (0-450); Eosinophils Percent Auto 2.7 % (2-4); Hematocrit 39.7 % (36-46); Hemoglobin 13.1 g/dL (12.0-16.0); Lymphocytes Absolute Auto 1200 /uL (1100-4500); Lymphocytes Percent Auto 17.2 % (25-40); Mean Corpuscular Hemoglobin 27.7 PG (26-34); Monocytes Absolute Auto 900 /uL (0-900); Neutrophils Absolute Auto 4800 /uL (1500-7000); Neutrophils Percent Auto 66.4 % (50-75); Platelet Count 285 X10^3/uL (150-400); Red Blood Cell Count 4.72 X10^6/uL (4.0-5.2); Red Cell Distribution Width 15.2 % (11.6-14.8); White Blood Cell Count 7.2 X10^3/uL (4.5-11.0)
[2022-01-09 10:34] LABS: Appearance Urine UA CLEAR; Bilirubin Urine UA 2+ (NEGATIVE); Color Urine UA YELLOW; Glucose Urine UA NEGATIVE (Negative); Ketones Urine UA TRACE (NEGATIVE); Leukocyte Esterase Urine UA TRACE (NEGATIVE); Nitrite Urine UA NEGATIVE (Negative); Occult Blood Urine UA NEGATIVE (Negative); Protein Urine UA 2+ (Negative); Specific Gravity Urine UA >=1.030 (1.000-1.035)
[2022-01-09 10:47] LABS: Bacteria Urine Moderate (10-30); Ictotest Urine Negative (Negative); RBC Urine None Seen (0-5/HPF); Squamous Epithelial Cell Urine 0-1 /HPF (0-5/HPF); WBC Urine 1-5/HPF (0-5/HPF)
[2022-01-09 10:48] LABS: Culture Indicated Urine Specimen Cultured
[2022-01-09 11:31] LABS: Creatinine Urine Random 377.1 mg/dL; Microalbumi Creatinin Ratio Ur 92.8 ug/mg CR (<30)
[2022-01-09 11:45] LABS: Blood Urea Nitrogen 21 mg/dL (7-17); Calcium 8.9 mg/dL (8.4-10.2); Carbon Dioxide 26 mmol/L (22-32); Chloride 103 mmol/L (98-107); Estimated Glomerular Filt Rate 37 mL/min (>60); Glucose 124 mg/dL (80-110); HEMOLYSIS < 15 (0-50); Magnesium 1.8 mg/dL (1.6-2.3); Phosphorous 4.1 mg/dL (2.8-4.1); Potassium 4.1 mmol/L (3.4-5.1); Sodium 140 mmol/L (137-145); Uric Acid 8.2 mg/dL (2.5-6.2)
[2022-01-09 11:54] LABS: Vitamin D 25 Hydroxy (D3) 32.7 ng/mL (30.0-100.0)
[2022-01-10 07:09] LABS: Parathyroid Hormone Int 148 pg/mL (15-65)
== END ==
PROVIDERS: Family Provider Student in an Organized Health Care Education/Training Program; PCP Student in an Organized Health Care Education/Training Program; Referring Provider Internal Medicine Nephrology; Visit Provider Internal Medicine Nephrology
DX: N18.32 Chronic kidney disease, stage 3b (principal)
CPT/HCPCS: 36415; 80048; 81001; 82043; 82306; 82570; 83735; 83970; 84100; 84550; 85025; 87086

== ENCOUNTER 2022-01-26 13:03 | Observation (INO) | payer MEDICARE, OTHER, SELFPAY ==
[2022-01-26] VITALS (21 sets, daily range): BP systolic 96–157; BP diastolic 59–103; PULSE 90–141; RESP 18–23; TEMP 36.7–37.8; O2SAT 91–98; BMI 31.8
--- NOTE | 2022-01-26 13:09 | DI.RAD.S_ITS ---
PROCEDURE: XR CHEST 1V INDICATIONS: suspected sepsis TECHNIQUE: One view of the chest was acquired. COMPARISON: None. FINDINGS: Surgical changes and devices: None. Lungs and pleura: Subtle density at the left lung base. There is mild hypoinflation. No pleural effusions or pneumothorax. Mediastinum: Mediastinal contours appear normal. Heart size is normal. Vascular calcifications within the aortic arch. Bones and chest wall: No suspicious bony lesions. Calcified breast implants. IMPRESSION: Subtle density at the left lung base likely represents atelectasis given mild hypoinflation. Developing consolidation not completely excluded. If further evaluation is necessary, consider dedicated upright frontal and lateral chest radiographs. Dictated by: Jaime Quiroz D.O. on 01/26/2022 at 12:42 Approved by: Jaime Quiroz D.O. on 01/26/2022 at 12:43
[2022-01-26 13:22] LABS: Add Manual Diff / Slide Review NO; Basophils Absolute Auto 0 /uL (0-100); Basophils Percent Auto 0.1 % (0-2); Eosinophils Absolute Auto 0 /uL (0-450); Eosinophils Percent Auto 0.1 % (2-4); Hematocrit 42.5 % (36-46); Hemoglobin 14.3 g/dL (12.0-16.0); Lymphocytes Absolute Auto 800 /uL (1100-4500); Lymphocytes Percent Auto 4.1 % (25-40); Mean Corpuscular HGB Conc 33.7 % (30-36); Mean Corpuscular Hemoglobin 27.9 PG (26-34); Mean Corpuscular Volume 82.6 fL (80-100); Monocytes Absolute Auto 1400 /uL (0-900); Monocytes Percent Auto 7.7 % (3-14); Neutrophils Absolute Auto 16100 /uL (1500-7000); Platelet Count 258 X10^3/uL (150-400); Red Blood Cell Count 5.14 X10^6/uL (4.0-5.2); Red Cell Distribution Width 14.6 % (11.6-14.8); White Blood Cell Count 18.3 X10^3/uL (4.5-11.0)
[2022-01-26] MEDS: SODIUM CHLORIDE 0.9% 1,000 ML 1000 ML IV ×2 (13:30→13:51)
[2022-01-26 13:39] LABS: Alanine Aminotransferase 16 IU/L (<35); Albumin 4.7 g/dL (3.5-5.0); Albumin Globulin Ratio 1.4 (1.0-2.8); Alkaline Phosphatase 96 U/L (38-126); Aspartate Aminotransferase 27 IU/L (14-36); BUN Creatinine Ratio 11.3 (6-22); Blood Urea Nitrogen 16 mg/dL (7-17); Calcium 8.8 mg/dL (8.4-10.2); Carbon Dioxide 29 mmol/L (22-32); Chloride 100 mmol/L (98-107); Estimated Glomerular Filt Rate 40 mL/min (>60); Globulin 3.3 g/dL (1.7-4.1); Glucose 132 mg/dL (80-110); HEMOLYSIS 30 (0-50); Lipase 68 U/L (23-300); Potassium 3.8 mmol/L (3.4-5.1); Sodium 136 mmol/L (137-145)
[2022-01-26 13:41] LABS: Lactate (Lactic Acid) 1.3 mmol/L (0.7-2.1)
[2022-01-26 13:41] LABS: COVID19 -Nasal RAPID Negative (Negative)
[2022-01-26] MEDS: cefTRIAXone 1,000 MG in SODIUM CHLORIDE 0.9% 100 ML 200 MG IV (13:50)
[2022-01-26] MEDS: VANCOMYCIN 1,000 MG/200 ML PIGGYBACK 200 MG IV (13:51)
[2022-01-26 13:55] LABS: Procalcitonin 0.12 ng/mL (<0.5)
[2022-01-26 14:10] LABS: Appearance Urine UA CLEAR; Bilirubin Urine UA NEGATIVE (NEGATIVE); Color Urine UA YELLOW; Glucose Urine UA NEGATIVE (Negative); Ketones Urine UA NEGATIVE (NEGATIVE); Leukocyte Esterase Urine UA NEGATIVE (NEGATIVE); Nitrite Urine UA NEGATIVE (Negative); Occult Blood Urine UA NEGATIVE (Negative); Protein Urine UA NEGATIVE (Negative); Urobilinogen Urine UA 0.2 E.U./dL (0.2)
--- NOTE | 2022-01-26 14:31 | ED.GENADULT ---
HPI - General Adult General Chief complaint: Upper Respiratory Symptoms Stated complaint: cough Time Seen by Provider: 01/26/22 13:20 Source: patient, family and EMS Mode of arrival: EMS Limitations: no limitations History of Present Illness HPI narrative: 71-year-old female who is brought in by EMS. Her daughter is at bedside. It appears that yesterday the patient started to not feel well. They are fairly nonspecific about the symptoms. She went to bed last night feeling very poorly. Overnight she did seem to worsen and started to develop shortness of breath and cough. This morning the patient's daughter initially stated that she was altered however it appears that it was more of a somnolence as she was having a difficult time waking her. That seems to now have improved. Patient does express some shortness of breath and cough but denies chest pain, no headache, is having a sore throat, no abdominal pain no nausea or vomiting. No urinary symptoms. No change in bowel habits. No rashes. Related Data Home Medications Medication Instructions Recorded Confirmed amlodipine 10 mg tablet 10 mg PO DAILY 10/21/18 01/26/22 furosemide 40 mg tablet 40 mg PO DAILY 10/21/18 01/26/22 labetalol 300 mg tablet 300 mg PO BID 10/21/18 01/26/22 Excedrin Tension Headache 0.5 tab PO BID PRN Headache 12/31/18 01/26/22 famotidine 20 mg tablet 20 mg PO DAILY 01/26/22 01/26/22 Previous Rx's Medication Instructions Recorded atorvastatin 40 mg tablet (Lipitor) 40 mg PO HS #30 tabs 04/26/21 clotrimazole-betamethasone 1 1 applic topical BID PRN rash #45 07/03/21 %-0.05 % topical cream grams nystatin 100,000 unit/gram topical 1 applic topical BID PRN Rash #30 07/03/21 powder grams albuterol sulfate 90 mcg/actuation 2 puff inhalation Q4-6H PRN 08/08/21 aerosol inhaler shortness of breath or wheezing #8.5 grams Allergies Allergy/AdvReac Type Severity Reaction Status Date / Time morphine Allergy Intermediate ITCHING Verified 07/03/21 10:30 hydrocodone Allergy Mild ITCH Verified 07/03/21 10:30 lisinopril Allergy Mild BACK Verified 07/03/21 10:30 PAIN/HAND NUMBNESS Review of Systems Review of Systems ROS Unobtainable: All systems reviewed & are unremarkable except as noted in HPI and below Patient History Medical History CVA (cerebral vascular accident) Hypertension Family History Father Hypertension Mother Gallstones Sister Hypertension Brother Hypertension Social History Smoking Status: Former smoker Smoking Status: Former smoker Substance Use Type: does not use Exam Initial Vital Signs Initial Vital Signs: Vital Signs Temperature 100.1 F H 01/26/22 13:03 Pulse Rate 141 H 01/26/22 13:03 Respiratory Rate 18 01/26/22 13:03 Blood Pressure 144/88 H 01/26/22 13:03 Pulse Oximetry 91 01/26/22 13:03 Oxygen Delivery Method 01/26/22 13:03 Const General: cooperative, comfortable and No acute distress HENMT Head: normal to inspection and normocephalic Eyes General: Yes appearance normal, both eyes and all related structures Chest Chest: normal inspection of the chest Resp Effort & Inspection: normal respiratory effort, not labored, no respiratory distress and tachypneic Auscultation: clear to auscultation bilaterally Cardio Rate: tachycardic Rhythm: regular rhythm GI Inspection: normal to inspection and non-distended Palpation: soft and No tender Skin General: no rashes or lesions noted Neuro General: patient alert, patient awake, patient oriented x3 and moves all extremities Speech: speech normal Extrem General: normal to inspection, capillary refill normal and No edema Psych Appearance: grossly normal Scores GCS [place] coma scale eye opening: Spontaneous [place] coma scale verbal response: Orientated [place] coma scale motor response: Obey commands [place] coma scale total score: 15 Course Orders Ordered: ED Orders 01/26/22 13:05 Complete Blood Count AUTO DIFF Stat Comprehensive Metabolic Panel Stat Lactate (Lactic Acid) Stat Lipase Stat Procalcitonin Stat 01/26/22 13:09 XR chest 1V Stat EKG-12 Lead Stat 01/26/22 13:11 COVID19 -Nasal RAPID/Pre-Proc Stat 01/26/22 13:39 Urinalysis and Microscopic Stat Urine Culture Stat 01/26/22 14:00 Blood Culture Stat 01/26/22 15:04 Respiratory Panel (Film Array) Stat 01/26/22 16:35 Education, smoking cessation ONGOING 01/27/22 06:00 Basic Metabolic Panel DAILY Complete Blood Count AUTO DIFF DAILY Acetaminophen (Acetaminophen 325 Mg Tablet) 650 mg PO Q6HR PRN PRN Reason: Fever/Mild Pain (1-3) Ceftriaxone Sodium 1,000 mg/ (Sodium Chloride) 100 mls @ 200 mls/hr IV Q24H JONNIE Azithromycin 500 mg/ Dextrose 250 mls @ 250 mls/hr IV Q24H JONNIE Last Admin: 01/26/22 17:06 Dose: 250 mls/hr Documented By: MATHIEU Sodium Chloride (Normal Saline 0.45%) 1,000 mls @ 100 mls/hr IV CONT JONNIE Stop: 02/26/22 02:34 Last Admin: 01/26/22 17:07 Dose: 100 mls/hr Documented By: MATHIEU Discontinued Medications Sodium Chloride (Normal Saline 0.9%) 1,000 mls @ 1,000 mls/hr IV BOLUS ONE Stop: 01/26/22 14:08 Last Infusion: 01/26/22 14:36 Dose: 0 mls/hr Documented By: Admin: 01/26/22 13:30 Dose: 1,000 mls/hr Documented By: KIKE Sodium Chloride (Normal Saline 0.9%) 1,000 mls @ 1,000 mls/hr IV BOLUS ONE Stop: 01/26/22 14:21 Last Infusion: 01/26/22 16:01 Dose: 0 mls/hr Documented By: Admin: 01/26/22 13:51 Dose: 1,000 mls/hr Documented By: KIKE Sodium Chloride (Normal Saline 0.9%) 1,000 mls @ 125 mls/hr IV CONT JONNIE Vancomycin HCl (Vancomycin) 1,000 mg in 200 mls @ 200 mls/hr IV NOW ONE Stop: 01/26/22 14:25 Last Infusion: 01/26/22 14:55 Dose: 0 mls/hr Documented By: Admin: 01/26/22 13:51 Dose: 200 mls/hr Documented By: KIKE Ceftriaxone Sodium 1,000 mg/ (Sodium Chloride) 100 mls @ 200 mls/hr IV NOW ONE Stop: 01/26/22 13:27 Last Infusion: 01/26/22 14:36 Dose: 0 mls/hr Documented By: Admin: 01/26/22 13:50 Dose: 200 mls/hr Documented By: KIKE Vital Signs Vital signs: Vital Signs - 8 hr 01/26/22 13:03 01/26/22 13:06 01/26/22 13:07 Temperature 100.1 F H Pulse Rate 141 H 137 H 138 H Respiratory Rate 18 Blood Pressure 144/88 H Pulse Oximetry 91 92 92 Oxygen Delivery Method Room Air Nasal Cannula Oxygen Flow Rate 2 01/26/22 13:07 01/26/22 13:15 01/26/22 13:15 Temperature Pulse Rate 129 H Respiratory Rate 21 Blood Pressure 144/88 H 143/80 H Pulse Oximetry 95 Oxygen Delivery Method Oxygen Flow Rate 2 01/26/22 13:30 01/26/22 13:40 01/26/22 13:40 Temperature Pulse Rate 131 H 136 H Respiratory Rate 20 21 Blood Pressure 139/84 Pulse Oximetry 96 Oxygen Delivery Method Oxygen Flow Rate 01/26/22 13:45 01/26/22 13:45 01/26/22 14:00 Temperature Pulse Rate 126 H Respiratory Rate 20 Blood Pressure 149/75 H 138/73 Pulse Oximetry 98 Oxygen Delivery Method Oxygen Flow Rate 01/26/22 14:00 01/26/22 14:15 01/26/22 14:15 Temperature Pulse Rate 120 H 132 H Respiratory Rate 21 20 Blood Pressure 157/103 H Pulse Oximetry 98 Oxygen Delivery Method Nasal Cannula Oxygen Flow Rate 2 01/26/22 14:30 01/26/22 14:58 01/26/22 14:59 Temperature Pulse Rate 125 H 121 H Respiratory Rate 23 22 Blood Pressure 142/70 H Pulse Oximetry 96 Oxygen Delivery Method Oxygen Flow Rate 01/26/22 14:59 01/26/22 15:00 01/26/22 15:00 Temperature Pulse Rate 117 H 117 H Respiratory Rate 21 20 Blood Pressure 149/72 H Pulse Oximetry 95 96 Oxygen Delivery Method Oxygen Flow Rate 01/26/22 14:25 Temperature 98.1 F Pulse Rate 120 H Respiratory Rate 19 Blood Pressure 128/78 Pulse Oximetry 97 Oxygen Delivery Method Oxygen Flow Rate 2 Medical Decision Making Lab Data Lab results reviewed: Yes I reviewed the patient's lab results. Result diagrams: 01/26/22 13:05 01/26/22 13:05 Labs: Lab Results 01/26/22 01/26/22 01/26/22 Range/Units 13:05 13:05 13:05 WBC 18.3 H (4.5-11.0) X10^3/uL RBC 5.14 (4.0-5.2) X10^6/uL Hgb 14.3 (12.0-16.0) g/dL Hct 42.5 (36-46) % MCV 82.6 (80-100) fL MCH 27.9 (26-34) PG MCHC 33.7 (30-36) % RDW 14.6 (11.6-14.8) % Plt Count 258 (150-400) X10^3/uL Neut % (Auto) 88.0 H (50-75) % Lymph % (Auto) 4.1 L (25-40) % [place] % (Auto) 7.7 (3-14) % Eos % (Auto) 0.1 L (2-4) % Baso % (Auto) 0.1 (0-2) % Neut # (Auto) 34484 H (2670-6218) /uL Lymph # (Auto) 800 L (4207-6359) /uL [place] # (Auto) 1400 H (0-900) /uL Eos # (Auto) 0 (0-450) /uL Baso # (Auto) 0 (0-100) /uL Sodium 136 L (137-145) mmol/L Potassium 3.8 (3.4-5.1) mmol/L Chloride 100 (98-107) mmol/L Carbon Dioxide 29 (22-32) mmol/L BUN 16 (7-17) mg/dL Creatinine 1.42 H (0.52-1.04) mg/dL Estimated GFR 40 L (>60) mL/min BUN/Creatinine Ratio 11.3 (6-22) Glucose 132 H (80-110) mg/dL Lactate 1.3 (0.7-2.1) mmol/L Calcium 8.8 (8.4-10.2) mg/dL Total Bilirubin 1.0 (0.2-1.3) mg/dL AST 27 (14-36) IU/L ALT 16 (<35) IU/L Alkaline Phosphatase 96 (38-126) U/L Total Protein 8.0 (6.3-8.2) g/dL Albumin 4.7 (3.5-5.0) g/dL Globulin 3.3 (1.7-4.1) g/dL Albumin/Globulin Ratio 1.4 (1.0-2.8) Lipase 68 (23-300) U/L Procalcitonin 0.12 (<0.5) ng/mL Urine Color Urine Appearance Urine pH (4.5-8.0) Ur Specific [place] (1.000-1.035) Urine Protein (Negative) Urine Glucose (UA) (Negative) g/dL Urine Ketones (NEGATIVE) Urine Occult Blood (Negative) Urine Nitrate (Negative) Urine Bilirubin (NEGATIVE) Urine Urobilinogen (0.2) E.U./dL Ur Leukocyte Esterase (NEGATIVE) Urine RBC (0-5/HPF) Urine WBC (0-5/HPF) Ur Squamous Epith Cells (0-5/HPF) Urine Bacteria (None) Ur Culture Indicated? Chlamy pneumoniae PCR (Not Detect) Adenovirus (PCR) (Not Detect) B. pertussis DNA (PCR) (Not Detecte) B.parapertussis DNA PCR (Not Detecte) Coronavirus OC43 (PCR) (Not Detect) Coronavirus HKU1 (PCR) (Not Detect) Coronavirus 229E (PCR) (Not Detect) SARS-CoV-2 (PCR) (Negative) Coronavirus NL63 (PCR) (Not Detect) Human Metapneumovir PCR (Not Detect) Influenza Type A (PCR) (Not Detect) Influenza Type B (PCR) (Not Detect) M. pneumoniae (PCR) (Not Detect) Parainfluenza 1 (PCR) (Not Detect) Parainfluenza 2 (PCR) (Not Detect) Parainfluenza 3 (PCR) (Not Detect) Parainfluenza 4 (PCR) (Not Detect) RSV (PCR) (Not Detect) Entero/Rhino (PCR) (Not Detect) 01/26/22 01/26/22 01/26/22 Range/Units 13:11 13:39 15:04 WBC (4.5-11.0) X10^3/uL RBC (4.0-5.2) X10^6/uL Hgb (12.0-16.0) g/dL Hct (36-46) % MCV (80-100) fL MCH (26-34) PG MCHC (30-36) % RDW (11.6-14.8) % Plt Count (150-400) X10^3/uL Neut % (Auto) (50-75) % Lymph % (Auto) (25-40) % [place] % (Auto) (3-14) % Eos % (Auto) (2-4) % Baso % (Auto) (0-2) % Neut # (Auto) (1180-2544) /uL Lymph # (Auto) (0637-1372) /uL [place] # (Auto) (0-900) /uL Eos # (Auto) (0-450) /uL Baso # (Auto) (0-100) /uL Sodium (137-145) mmol/L Potassium (3.4-5.1) mmol/L Chloride (98-107) mmol/L Carbon Dioxide (22-32) mmol/L BUN (7-17) mg/dL Creatinine (0.52-1.04) mg/dL Estimated GFR (>60) mL/min BUN/Creatinine Ratio (6-22) Glucose (80-110) mg/dL Lactate (0.7-2.1) mmol/L Calcium (8.4-10.2) mg/dL Total Bilirubin (0.2-1.3) mg/dL AST (14-36) IU/L ALT (<35) IU/L Alkaline Phosphatase (38-126) U/L Total Protein (6.3-8.2) g/dL Albumin (3.5-5.0) g/dL Globulin (1.7-4.1) g/dL Albumin/Globulin Ratio (1.0-2.8) Lipase (23-300) U/L Procalcitonin (<0.5) ng/mL Urine Color Yellow Urine Appearance Clear Urine pH 7.0 (4.5-8.0) Ur Specific [place] 1.010 (1.000-1.035) Urine Protein Negative (Negative) Urine Glucose (UA) Negative (Negative) g/dL Urine Ketones Negative (NEGATIVE) Urine Occult Blood Negative (Negative) Urine Nitrate Negative (Negative) Urine Bilirubin Negative (NEGATIVE) Urine Urobilinogen 0.2 (0.2) E.U./dL Ur Leukocyte Esterase Negative (NEGATIVE) Urine RBC 0-1/hpf (0-5/HPF) Urine WBC 0-1/hpf (0-5/HPF) Ur Squamous Epith Cells 0-1 /hpf (0-5/HPF) Urine Bacteria None seen (None) Ur Culture Indicated? Cult not indicated Chlamy pneumoniae PCR Not detected (Not Detect) Adenovirus (PCR) Not detected (Not Detect) B. pertussis DNA (PCR) Not detected (Not Detecte) B.parapertussis DNA PCR Not detected (Not Detecte) Coronavirus OC43 (PCR) Not detected (Not Detect) Coronavirus HKU1 (PCR) Not detected (Not Detect) Coronavirus 229E (PCR) Not detected (Not Detect) SARS-CoV-2 (PCR) Negative Not detected (Negative) Coronavirus NL63 (PCR) Not detected (Not Detect) Human Metapneumovir PCR Not detected (Not Detect) Influenza Type A (PCR) Not detected (Not Detect) Influenza Type B (PCR) Not detected (Not Detect) M. pneumoniae (PCR) Not detected (Not Detect) Parainfluenza 1 (PCR) Not detected (Not Detect) Parainfluenza 2 (PCR) Not detected (Not Detect) Parainfluenza 3 (PCR) Not detected (Not Detect) Parainfluenza 4 (PCR) Not detected (Not Detect) RSV (PCR) Not detected (Not Detect) Entero/Rhino (PCR) Not detected (Not Detect) Imaging Data Chest x-ray: Radiologist's Impression: [address] [address] XRay Report Signed Patient: Meliza Mccann I MR#: [id number] : 1950 Acct:[id number] Age/Sex: 71 / F Date of Service: 01/26/22 Loc: ED Accession Number: [id number] ?? Procedure: XR chest 1V Ordering Provider: Anthony Srinivasan D.O. PROCEDURE:? XR CHEST 1V ? INDICATIONS:? suspected sepsis ? TECHNIQUE:? One view of the chest was acquired.? ? COMPARISON:? None. ? FINDINGS:? ? Surgical changes and devices:? None.? ? Lungs and pleura:? Subtle density at the left lung base.? There is mild hypoinflation.? No pleural effusions or pneumothorax.? ? Mediastinum:? Mediastinal contours appear normal.? Heart size is normal.? Vascular calcifications within the aortic arch. ? Bones and chest wall:? No suspicious bony lesions.? Calcified breast implants. ? IMPRESSION:? ? Subtle density at the left lung base likely represents atelectasis given mild hypoinflation.? Developing consolidation not completely excluded.? If further evaluation is necessary, consider dedicated upright frontal and lateral chest radiographs. ? ? Dictated by: Jaime Quiroz D.O. on 01/26/2022 at 12:42 ? ? Approved by: Jaime Quiroz D.O. on 01/26/2022 at 12:43 ECG Data Attestation: I personally reviewed and interpreted this ECG as follows: Interpretation: Sinus rhythm Ventricular rate of 130 Normal axis Normal QRS Normal QTC Nonspecific ST T wave changes MDM Narrative Medical decision making narrative: Patient is not altered. Was tachycardic. Also febrile. Was hypoxic to the high 80s on room air. This improved by nasal cannula. Has a leukocytosis. Normal lactate. Normal procalcitonin. Urine shows no signs of infection. Chest x-ray is not convincing for infection however she does present with respiratory symptoms so I suspect that this is the most likely source. Her COVID was negative. She has no abdominal pain. No diarrhea. No skin changes. No neck pain or headache consistent with meningitis. Upon arrival patient was given antibiotics. Blood cultures were obtained. Patient states she takes Lasix for her blood pressure which is little unusual. No diagnosis of heart failure. Given the fact that she is not clinically dehydrated, not hypotensive, is on Lasix we will hold on the 30 cc/kilogram of fluid for now. Patient does require admission to the hospital secondary to her presenting symptoms. Discussed the case with Dr. Munroe with internal medicine who will admit for further evaluation treatment. Discussed the need for admission with the patient she expressed understanding and agreement as well. Discharge Plan Departure Patient Disposition: Home Clinical Impression: Hypoxia, Pneumonia, Tachycardia
[2022-01-26 14:39] LABS: Bacteria Urine None Seen; Culture Indicated Urine Cult Not Indicated; RBC Urine 0-1/HPF (0-5/HPF); Squamous Epithelial Cell Urine 0-1 /HPF (0-5/HPF); WBC Urine 0-1/HPF (0-5/HPF)
[2022-01-26 16:14] LABS: Adenovirus Not Detected (Not Detect); B. parapertussis Not Detected (Not Detecte); Bordetella pertussis Not Detected (Not Detecte); Chlamydophila pneumoniae Not Detected (Not Detect); Coronavirus 229E Not Detected (Not Detect); Coronavirus HKU1 Not Detected (Not Detect); Coronavirus NL 63 Not Detected (Not Detect); Coronavirus OC43 Not Detected (Not Detect); Human Metapneumovirus Not Detected (Not Detect); Human Rhinovirus/Enterovirus Not Detected (Not Detect); Influenza A Not Detected (Not Detect); Influenza B Not Detected (Not Detect); Mycoplasma pneumoniae Not Detected (Not Detect); Parainfluenza Virus 1 Not Detected (Not Detect); Parainfluenza Virus 2 Not Detected (Not Detect); Parainfluenza Virus 3 Not Detected (Not Detect); Parainfluenza Virus 4 Not Detected (Not Detect); Respiratory Syncytial Virus Not Detected (Not Detect); SARS- CoV-2 Not Detected (Not Detecte)
[2022-01-26] MEDS: AZITHROMYCIN 500 MG in DEXTROSE 5% IN WATER 250 ML 250 MG IV (17:06)
[2022-01-26] MEDS: SODIUM CHLORIDE 0.45% 1,000 ML 100 ML IV (17:07)
[2022-01-26] MEDS: ATORVASTATIN 20 MG TABLET 40 MG PO ×2 (18:22→21:29)
--- NOTE | 2022-01-26 18:27 | PM.HP.1 ---
History of Present Illness History of Present Illness Date Patient Seen: 01/26/22 Chief complaint: cough Narrative: 71-year-old female with COPD, hypertension, hyperlipidemia, CKD 3, remote smoker, coronary artery disease with previous stent x1, as well as previous history of brain aneurysm status post clipping remotely who presented to the emergency department with generalized ill symptoms. Patient lives with her daughter, son-in-law, and has been. She was in her usual state of health until yesterday morning when she had a general sense of feeling unwell. Last night, she continued to feel unwell but had no focal symptoms. Overnight she did have some cough and shortness of breath. She reports this morning she developed a very sore throat. Her daughter got home from work at approximately 11:30 a.m. and found her mom still in bed which was very unusual. She was complaining of generalized body aches. Patient states she has had a cough for a couple of days. She denies having felt feverish but has been having chills. Daughter reports that she felt clammy earlier today. Patient denies any nausea, vomiting, or diarrhea. She states she was up 5-6 times last night to urinate and had to use the day to support her as she felt unsteady. She denies any dizziness. No chest pain. No shortness breaths. She does know any ill exposure with a niece who had been over to the home for couple of days earlier in the week. The other family members with whom she lives are not feel at this time. Patient was previously vaccinated for COVID with 2 Pfizer shots followed by 2 booster shots. She tested positive in August of 2021 for COVID (likely on a chronic). She was more ill with primarily cold symptoms that were relatively mild at that time. Daughter notes they were quite surprised that her COVID test was positive. Patient was brought into the emergency department today due to her ill symptoms. She was found to be mildly hypoxic initially with saturations in the high 80s in room air. She was placed on 2 L of oxygen with saturations up into the 90s. White blood cell count was elevated at 18. She was noted to be tachycardic in the 110-120 range. She was also noted to have mild low-grade fever. Chest x-ray revealed some possible hypoinflation but no evidence of infiltrate. UA was negative. COVID testing negative. Respiratory viral panel negative. Patient was given IV Rocephin as well as vancomycin and admission was recommended. Lactate was negative. Procalcitonin was also negative. Currently patient's main complaint is sore throat. She has some hoarseness. She denies feeling short of breath at this time. She notes a poor appetite this evening. Patient History Medical History CVA (cerebral vascular accident) Hypertension Comment: Past medical history: Hypertension Hyperlipidemia CKD stage 3, followed by Nephrology COPD Remote smoker, 1/2-1 pack per day for 25 years, quit 1994 Coronary artery disease status post stenting x1 (no prior OR) Brain aneurysm with a leak in 1994 status post clipping Family & Social History Family History (Updated 01/26/22 @ 18:34 by Sally Munroe MD) Father Hypertension Mother Gallstones Abdominal aortic aneurysm Sister Hypertension Coronary artery disease Brother Hypertension Coronary artery disease Social History: household members spouse,children Prior Living Arrangements House Patient is a former smoker noted, no alcohol use. Safety & Behavioral: Feels Safe in Current Yes Environment Been Physically Hurt or No Threatened By a Person Tobacco & Substance use: Smoking Status Former smoker 1/2-1 pack per day for 25 years, quit 1994 alcohol intake never Substance Use Type does not use Meds Home Medications and Allergies Home Medications Medication Instructions Recorded Confirmed Type amlodipine 10 mg tablet 10 mg PO DAILY 10/21/18 01/26/22 History furosemide 40 mg tablet 40 mg PO DAILY 10/21/18 01/26/22 History labetalol 300 mg tablet 300 mg PO BID 10/21/18 01/26/22 History Excedrin Tension Headache 0.5 tab PO BID PRN Headache 12/31/18 01/26/22 History atorvastatin 40 mg tablet (Lipitor) 40 mg PO HS #30 tabs 04/26/21 01/26/22 Rx clotrimazole-betamethasone 1 1 applic topical BID PRN rash #45 07/03/21 01/26/22 Rx %-0.05 % topical cream grams nystatin 100,000 unit/gram topical 1 applic topical BID PRN Rash #30 07/03/21 01/26/22 Rx powder grams albuterol sulfate 90 mcg/actuation 2 puff inhalation Q4-6H PRN 08/08/21 01/26/22 Rx aerosol inhaler shortness of breath or wheezing #8.5 grams famotidine 20 mg tablet 20 mg PO DAILY 01/26/22 01/26/22 History Allergies Allergy/AdvReac Type Severity Reaction Status Date / Time morphine Allergy Intermediate ITCHING Verified 07/03/21 10:30 hydrocodone Allergy Mild ITCH Verified 07/03/21 10:30 lisinopril Allergy Mild BACK Verified 07/03/21 10:30 PAIN/HAND NUMBNESS Review of Systems Review of Systems Narrative: All other systems were reviewed negative Exam Vital Signs (past 8 hours): - 01/26/22 13:03 01/26/22 13:06 01/26/22 13:07 Temperature 100.1 F H Pulse Rate 141 H 137 H 138 H Respiratory Rate 18 Blood Pressure 144/88 H Pulse Oximetry 91 92 92 Oxygen Delivery Method Room Air Nasal Cannula Oxygen Flow Rate 2 01/26/22 13:07 01/26/22 13:15 01/26/22 13:15 Temperature Pulse Rate 129 H Respiratory Rate 21 Blood Pressure 144/88 H 143/80 H Pulse Oximetry 95 Oxygen Delivery Method Oxygen Flow Rate 2 01/26/22 13:30 01/26/22 13:40 01/26/22 13:40 Temperature Pulse Rate 131 H 136 H Respiratory Rate 20 21 Blood Pressure 139/84 Pulse Oximetry 96 Oxygen Delivery Method Oxygen Flow Rate 01/26/22 13:45 01/26/22 13:45 01/26/22 14:00 Temperature Pulse Rate 126 H Respiratory Rate 20 Blood Pressure 149/75 H 138/73 Pulse Oximetry 98 Oxygen Delivery Method Oxygen Flow Rate 01/26/22 14:00 01/26/22 14:15 01/26/22 14:15 Temperature Pulse Rate 120 H 132 H Respiratory Rate 21 20 Blood Pressure 157/103 H Pulse Oximetry 98 Oxygen Delivery Method Nasal Cannula Oxygen Flow Rate 2 01/26/22 14:30 01/26/22 14:58 01/26/22 14:59 Temperature Pulse Rate 125 H 121 H Respiratory Rate 23 22 Blood Pressure 142/70 H Pulse Oximetry 96 Oxygen Delivery Method Oxygen Flow Rate 01/26/22 14:59 01/26/22 15:00 01/26/22 15:00 Temperature Pulse Rate 117 H 117 H Respiratory Rate 21 20 Blood Pressure 149/72 H Pulse Oximetry 95 96 Oxygen Delivery Method Oxygen Flow Rate 01/26/22 15:30 01/26/22 15:30 01/26/22 15:45 Temperature Pulse Rate 119 H Respiratory Rate Blood Pressure 157/88 H 148/71 H Pulse Oximetry 96 Oxygen Delivery Method Oxygen Flow Rate 01/26/22 15:45 01/26/22 16:00 01/26/22 16:00 Temperature Pulse Rate 115 H 116 H Respiratory Rate Blood Pressure 151/73 H Pulse Oximetry 96 96 Oxygen Delivery Method Oxygen Flow Rate 01/26/22 14:25 Temperature 98.1 F Pulse Rate 120 H Respiratory Rate 19 Blood Pressure 128/78 Pulse Oximetry 97 Oxygen Delivery Method Oxygen Flow Rate 2 Oxygen Delivery Method Nasal Cannula Oxygen Flow Rate 2 Narrative Exam Narrative: GEN: Moderately ill-appearing middle-aged female, Alert and oriented x3, no acute distress HEENT: Normocephalic, face symmetric, pupils equal round reactive to light, extraocular movements intact, sclerae anicteric, conjunctiva clear, nares patent, oropharynx reveals an intact soft and hard palate with moist mucous membranes, significant erythema to the tonsillar pillars bilaterally, no exudates, dentition is fair NECK: Supple, no lymphadenopathy, thyroid without enlargement or nodularity, carotids no bruits CHEST: Respiratory excursions symmetric, coarse but clear to auscultation bilaterally CV: Mildly tachycardic with regular rhythm, no murmurs, rubs, gallops, PMI nondisplaced ABD: Soft, obese, nontender, nondistended, bowel sounds present in all 4 quadrants, no organomegaly or masses appreciated but body habitus limits exam EXTR: Warm, well perfused, no clubbing/cyanosis/edema SKIN: Warm and dry, without rash NEURO: Alert and oriented x3, cranial nerves 2 through 12 are intact and symmetric bilaterally, motor strength 5/5 throughout, sensation intact throughout PSYCH: Mood and affect is within normal limits, judgment and insight are appropriate Objective Labs Result Diagrams: 01/26/22 13:05 01/26/22 13:05 Labs: Laboratory Results - last 24 hr 01/26/22 01/26/22 01/26/22 13:05 13:05 13:05 WBC 18.3 H RBC 5.14 Hgb 14.3 Hct 42.5 MCV 82.6 MCH 27.9 MCHC 33.7 RDW 14.6 Plt Count 258 Neut % (Auto) 88.0 H Lymph % (Auto) 4.1 L [place] % (Auto) 7.7 Eos % (Auto) 0.1 L Baso % (Auto) 0.1 Neut # (Auto) 65586 H Lymph # (Auto) 800 L [place] # (Auto) 1400 H Eos # (Auto) 0 Baso # (Auto) 0 Sodium 136 L Potassium 3.8 Chloride 100 Carbon Dioxide 29 BUN 16 Creatinine 1.42 H Estimated GFR 40 L BUN/Creatinine Ratio 11.3 Glucose 132 H Lactate 1.3 Calcium 8.8 Total Bilirubin 1.0 AST 27 ALT 16 Alkaline Phosphatase 96 Total Protein 8.0 Albumin 4.7 Globulin 3.3 Albumin/Globulin Ratio 1.4 Lipase 68 Procalcitonin 0.12 Urine Color Urine Appearance Urine pH Ur Specific [place] Urine Protein Urine Glucose (UA) Urine Ketones Urine Occult Blood Urine Nitrate Urine Bilirubin Urine Urobilinogen Ur Leukocyte Esterase Urine RBC Urine WBC Ur Squamous Epith Cells Urine Bacteria Ur Culture Indicated? Chlamy pneumoniae PCR Adenovirus (PCR) B. pertussis DNA (PCR) B.parapertussis DNA PCR Coronavirus OC43 (PCR) Coronavirus HKU1 (PCR) Coronavirus 229E (PCR) SARS-CoV-2 (PCR) Coronavirus NL63 (PCR) Human Metapneumovir PCR Influenza Type A (PCR) Influenza Type B (PCR) M. pneumoniae (PCR) Parainfluenza 1 (PCR) Parainfluenza 2 (PCR) Parainfluenza 3 (PCR) Parainfluenza 4 (PCR) RSV (PCR) Entero/Rhino (PCR) 01/26/22 01/26/22 01/26/22 13:11 13:39 15:04 WBC RBC Hgb Hct MCV MCH MCHC RDW Plt Count Neut % (Auto) Lymph % (Auto) [place] % (Auto) Eos % (Auto) Baso % (Auto) Neut # (Auto) Lymph # (Auto) [place] # (Auto) Eos # (Auto) Baso # (Auto) Sodium Potassium Chloride Carbon Dioxide BUN Creatinine Estimated GFR BUN/Creatinine Ratio Glucose Lactate Calcium Total Bilirubin AST ALT Alkaline Phosphatase Total Protein Albumin Globulin Albumin/Globulin Ratio Lipase Procalcitonin Urine Color Yellow Urine Appearance Clear Urine pH 7.0 Ur Specific [place] 1.010 Urine Protein Negative Urine Glucose (UA) Negative Urine Ketones Negative Urine Occult Blood Negative Urine Nitrate Negative Urine Bilirubin Negative Urine Urobilinogen 0.2 Ur Leukocyte Esterase Negative Urine RBC 0-1/hpf Urine WBC 0-1/hpf Ur Squamous Epith Cells 0-1 /hpf Urine Bacteria None seen Ur Culture Indicated? Cult not indicated Chlamy pneumoniae PCR Not detected Adenovirus (PCR) Not detected B. pertussis DNA (PCR) Not detected B.parapertussis DNA PCR Not detected Coronavirus OC43 (PCR) Not detected Coronavirus HKU1 (PCR) Not detected Coronavirus 229E (PCR) Not detected SARS-CoV-2 (PCR) Negative Not detected Coronavirus NL63 (PCR) Not detected Human Metapneumovir PCR Not detected Influenza Type A (PCR) Not detected Influenza Type B (PCR) Not detected M. pneumoniae (PCR) Not detected Parainfluenza 1 (PCR) Not detected Parainfluenza 2 (PCR) Not detected Parainfluenza 3 (PCR) Not detected Parainfluenza 4 (PCR) Not detected RSV (PCR) Not detected Entero/Rhino (PCR) Not detected Assessment & Plan Assessment and plan (1) Mixed conductive and sensorineural hearing loss of right ear: Status: Acute (2) COPD (chronic obstructive pulmonary disease): Status: Acute (3) Former smoker: Status: Acute Assessment & Plan narrative: 1. Systemic inflammatory response syndrome Patient presents with fever, tachycardia, leukocytosis. She has a negative lactate, negative procalcitonin. Viral studies negative. Urinalysis negative. Blood cultures drawn and pending. X-ray shows some hypoinflation versus early infiltrate. Patient does have clinical symptoms consistent with COVID infection despite a negative COVID test. It is possible the COVID test was done too early in the illness versus her viral load being low enough not to trigger a positive test. Given her sore throat, cough, aches, fever, I have requested the patient be placed in respiratory/droplet precautions for now. As noted, it is also possible that her chest x-ray has not shown any involved pneumonia yet. She will be treated with antibiotics empirically. 2. Cough/fever As above, could be viral secondary to clinical picture consistent with COVID versus early pneumonia. Patient will be continued on Rocephin as well as azithromycin. She does not need any cough suppressants, breathing treatments at this time. Will continue to monitor. 3. Acute hypoxic respiratory failure Patient had saturations in the 80s on room air. Presently in the 90s on 2 L. Etiology is likely her current infection. Will monitor. 4. Leukocytosis Secondary to above noted blood cultures have been drawn and are pending. Urine was negative for infection. 5. COPD without exacerbation Currently no evidence of exacerbation. We will monitor. She does not utilize any respiratory treatments at baseline 6. Hypertension Continue her usual home medications. Blood pressure is moderately hypertensive at 151/73. 7. Coronary artery disease Patient has not had a prior OR. She was stented remotely in 1994. She is presently asymptomatic. 8. CKD 3 Patient appears to be at baseline. Daughter notes usual GFR is 37. Today it is 40. She follows with Nephrology every 4 months. 9. Remote brain aneurysm with leak Status post repair remotely. Code status Full Prophylaxis Low Shannan score Disposition Admit to inpatient for further care/monitoring . Time Spent With Patient Critical Care time: I spent a total of [] minutes of critical care time on this patient's care today; this time is exclusive of procedural time. Quality VTE Deep Vein Thrombosis/Pulmonary Embolism Present on Admission: No
--- NOTE | 2022-01-26 18:44 | PC.NURSE ---
Pt is AxOx3-4, calm and cooperative. VSS, pt denies pain. Pt is on 2L NC. Pt's covid 19 negative currently but stated she is highly suspicious of Covid so pt is on Droplet precaution now. Pt feels fatigue and needs 2 person assistance to the bedside commode. Pt's dtr is in the room with her. pt has no appetite. No other changes. We'll continue monitor.
[2022-01-26] MEDS: LABETALOL 100 MG TABLET 300 MG PO (21:30)
[2022-01-26] MEDS: ACETAMINOPHEN 325 MG TABLET 650 MG PO (22:46)
[2022-01-27] VITALS (10 sets, daily range): BP systolic 92–153; BP diastolic 54–74; PULSE 79–103; RESP 17–18; TEMP 36.3–36.7; O2SAT 94–95
[2022-01-27] MEDS: SODIUM CHLORIDE 0.45% 1,000 ML 100 ML IV (01:55)
[2022-01-27 05:43] LABS: Add Manual Diff / Slide Review NO; Basophils Absolute Auto 0 /uL (0-100); Basophils Percent Auto 0.3 % (0-2); Eosinophils Absolute Auto 0 /uL (0-450); Eosinophils Percent Auto 0.3 % (2-4); Hematocrit 35.6 % (36-46); Hemoglobin 11.9 g/dL (12.0-16.0); Lymphocytes Absolute Auto 1500 /uL (1100-4500); Lymphocytes Percent Auto 13.4 % (25-40); Mean Corpuscular HGB Conc 33.3 % (30-36); Mean Corpuscular Hemoglobin 27.8 PG (26-34); Mean Corpuscular Volume 83.5 fL (80-100); Monocytes Absolute Auto 1300 /uL (0-900); Monocytes Percent Auto 12.3 % (3-14); Neutrophils Absolute Auto 8000 /uL (1500-7000); Neutrophils Percent Auto 73.7 % (50-75); Platelet Count 181 X10^3/uL (150-400); Red Blood Cell Count 4.26 X10^6/uL (4.0-5.2); Red Cell Distribution Width 14.6 % (11.6-14.8); White Blood Cell Count 10.9 X10^3/uL (4.5-11.0)
[2022-01-27 05:53] LABS: BUN Creatinine Ratio 11.9 (6-22); Blood Urea Nitrogen 16 mg/dL (7-17); Carbon Dioxide 26 mmol/L (22-32); Chloride 103 mmol/L (98-107); Estimated Glomerular Filt Rate 43 mL/min (>60); Glucose 112 mg/dL (80-110); HEMOLYSIS < 15 (0-50); Potassium 2.9 mmol/L (3.4-5.1); Sodium 136 mmol/L (137-145)
[2022-01-27 06:06] LABS: Calcium 7.3 mg/dL (8.4-10.2)
[2022-01-27] MEDS: LABETALOL 100 MG TABLET 300 MG PO ×2 (08:09→20:28)
[2022-01-27] MEDS: AMLODIPINE 5 MG TABLET 10 MG PO (08:09)
[2022-01-27] MEDS: FUROSEMIDE 40 MG TABLET PO (08:09)
[2022-01-27] MEDS: FAMOTIDINE 20 MG TABLET PO (08:09)
[2022-01-27 09:10] LABS: Magnesium 1.7 mg/dL (1.6-2.3)
[2022-01-27] MEDS: POTASSIUM CHLORIDE 10 MEQ TAB 30 MEQ PO ×2 (09:29→15:29)
[2022-01-27] MEDS: CALCIUM CARBONATE 500 MG TAB 1000 MG PO ×3 (12:17→21:00)
[2022-01-27] MEDS: cefTRIAXone 1,000 MG in SODIUM CHLORIDE 0.9% 100 ML 200 MG IV (12:18)
--- NOTE | 2022-01-27 12:46 | CM.DANOTE ---
DCP: Case received, EMR reviewed. Was unable to meet with patient secondary to her being positive for COVID, and attempted to call patient's room. Was able to get information from nurse, and VEGETABLE GROWER, in order to complete patient's assessment. DCP assessment completed with information currently available. Patient is a 71 year old female who admitted yesterday afternoon to the care of the hospitalist team. PCP: Dr. Ott. Payer: confirmed: Medicare/Commercial Insurance. Patient came to the hospital via ambulance secondary to having increased shortness of breath, as well as some altered mental status. Upon arrival, was noted that she was more somnolence, but had improved. She was accompanied by her daughter. Patient has history of COPD, is a remote smoker. She did test positive for COVID in August, and is on COVID precautions. Patient is here for COPD, and to manage clinical symptoms consistent with COVID, despite negative test. Was not able to meet with patient due to her precautions, and she did not answer the phone when this DC Reactor Operator called her room. It is noted that she does reside here in [place] with spouse, and daughter. According to nurse and VEGETABLE GROWER, she is mobilizing independently with no devices, and does not use home oxygen. P: DCP to continue to folow. Patient should be able to go home when she is deemed medically stable. Merari Keating RN/Bread Distributor Discharge Planning/Care Management CM Discharge Assessment Start: 01/27/22 12:25 Freq: Status: Active Protocol: Document 01/27/22 12:30 (Rec: 01/27/22 12:41 [id number]) Discharge Planning Assessment Assigned Pharmaceutical Worker Merari Keating RN/Bread Distributor Advance Directives? No History Provided By Patient,Medical Record Prior Living Arrangements House Household Members spouse,children Type of transporation used prior to Relies on Others admit Independent with ADL's Yes Is patient alert and oriented? Yes Needs Assistance With Home Chores / Shopping Caregiver for Another No Barriers to Discharge No Comment Patient lives with family, has home support. Discharge Plan Home Transportation Arrangement Family Referrals Initiated None needed Whiteboard Updated in Patient Room with No name and ext. # of Pharmaceutical Worker Comment Patient is on COVID precautions. Review Status In Process Next Review Type Continued Stay Review
[2022-01-27] MEDS: ACETAMINOPHEN 325 MG TABLET 650 MG PO ×2 (13:17→20:29)
--- NOTE | 2022-01-27 14:13 | P.PN_ITS ---
Subjective Subjective Date Patient Seen: 01/27/22 Interval history: 71-year-old female with COPD, hypertension, hyperlipidemia, CKD 3, remote smoker, coronary artery disease status post remote stent, as well as prior brain aneurysm status post clipping was admitted yesterday with systemic inflammatory response syndrome, cough/shortness of breath, possible clinical the COVID infection with negative testing versus early pneumonia. Today, patient reports she feels quite a bit better. She he does still have mild appetite loss but is tolerating intake. She denies any nausea or vomiting. No diarrhea. She reports her cough is improving. She still has a mild sore throat but also notes that is improved today. She is having fewer myalgias and aches. No one at home has developed any symptoms. Exam Vital Signs (past 8 hours): - 01/27/22 08:09 01/27/22 09:10 01/27/22 09:40 Pulse Rate 83 79 79 Blood Pressure 129/67 92/55 L Pulse Oximetry 94 Oxygen Delivery Method Oxygen Flow Rate 0 01/27/22 07:00 01/27/22 07:00 Pulse Rate Blood Pressure Pulse Oximetry 95 Oxygen Delivery Method Nasal Cannula Nasal Cannula Oxygen Flow Rate 2 Oxygen Delivery Method Nasal Cannula Oxygen Flow Rate 0 Narrative Exam Narrative: GEN:? Very pleasant middle-aged female, Alert and oriented x3, no acute distress, mildly hoarse HEENT:? Normocephalic, face symmetric CHEST:? Respiratory excursions symmetric, coarse but clear to auscultation bilaterally CV:? Regular rate and rhythm, no murmurs, rubs, gallops, PMI nondisplaced ABD:? Soft, obese, nontender, nondistended, bowel sounds present in all 4 quadrants, no organomegaly or masses appreciated but body habitus limits exam EXTR:? Warm, well perfused, no clubbing/cyanosis/edema SKIN:? Warm and dry, without rash NEURO:? Alert and oriented, nonfocal PSYCH:? Mood and affect is within normal limits, judgment and insight are appr opriate Objective Labs Result Diagrams: 01/27/22 05:19 01/27/22 05:19 Labs: Laboratory Results - last 24 hr 01/26/22 01/26/22 01/27/22 13:39 15:04 05:19 WBC 10.9 RBC 4.26 Hgb 11.9 L Hct 35.6 L MCV 83.5 MCH 27.8 MCHC 33.3 RDW 14.6 Plt Count 181 Neut % (Auto) 73.7 Lymph % (Auto) 13.4 L [place] % (Auto) 12.3 Eos % (Auto) 0.3 L Baso % (Auto) 0.3 Neut # (Auto) 8000 H Lymph # (Auto) 1500 [place] # (Auto) 1300 H Eos # (Auto) 0 Baso # (Auto) 0 Sodium Potassium Chloride Carbon Dioxide BUN Creatinine Estimated GFR BUN/Creatinine Ratio Glucose Calcium Magnesium Urine Color Yellow Urine Appearance Clear Urine pH 7.0 Ur Specific [place] 1.010 Urine Protein Negative Urine Glucose (UA) Negative Urine Ketones Negative Urine Occult Blood Negative Urine Nitrate Negative Urine Bilirubin Negative Urine Urobilinogen 0.2 Ur Leukocyte Esterase Negative Urine RBC 0-1/hpf Urine WBC 0-1/hpf Ur Squamous Epith Cells 0-1 /hpf Urine Bacteria None seen Ur Culture Indicated? Cult not indicated Chlamy pneumoniae PCR Not detected Adenovirus (PCR) Not detected B. pertussis DNA (PCR) Not detected B.parapertussis DNA PCR Not detected Coronavirus OC43 (PCR) Not detected Coronavirus HKU1 (PCR) Not detected Coronavirus 229E (PCR) Not detected SARS-CoV-2 (PCR) Not detected Coronavirus NL63 (PCR) Not detected Human Metapneumovir PCR Not detected Influenza Type A (PCR) Not detected Influenza Type B (PCR) Not detected M. pneumoniae (PCR) Not detected Parainfluenza 1 (PCR) Not detected Parainfluenza 2 (PCR) Not detected Parainfluenza 3 (PCR) Not detected Parainfluenza 4 (PCR) Not detected RSV (PCR) Not detected Entero/Rhino (PCR) Not detected 01/27/22 01/27/22 05:19 05:19 WBC RBC Hgb Hct MCV MCH MCHC RDW Plt Count Neut % (Auto) Lymph % (Auto) [place] % (Auto) Eos % (Auto) Baso % (Auto) Neut # (Auto) Lymph # (Auto) [place] # (Auto) Eos # (Auto) Baso # (Auto) Sodium 136 L Potassium 2.9 L Chloride 103 Carbon Dioxide 26 BUN 16 Creatinine 1.34 H Estimated GFR 43 L BUN/Creatinine Ratio 11.9 Glucose 112 H Calcium 7.3 L Magnesium 1.7 Urine Color Urine Appearance Urine pH Ur Specific [place] Urine Protein Urine Glucose (UA) Urine Ketones Urine Occult Blood Urine Nitrate Urine Bilirubin Urine Urobilinogen Ur Leukocyte Esterase Urine RBC Urine WBC Ur Squamous Epith Cells Urine Bacteria Ur Culture Indicated? Chlamy pneumoniae PCR Adenovirus (PCR) B. pertussis DNA (PCR) B.parapertussis DNA PCR Coronavirus OC43 (PCR) Coronavirus HKU1 (PCR) Coronavirus 229E (PCR) SARS-CoV-2 (PCR) Coronavirus NL63 (PCR) Human Metapneumovir PCR Influenza Type A (PCR) Influenza Type B (PCR) M. pneumoniae (PCR) Parainfluenza 1 (PCR) Parainfluenza 2 (PCR) Parainfluenza 3 (PCR) Parainfluenza 4 (PCR) RSV (PCR) Entero/Rhino (PCR) [facility] Medical History CVA (cerebral vascular accident) Hypertension Family History (Updated 01/26/22 @ 18:34 by Sally Munroe MD) Father Hypertension Mother Gallstones Abdominal aortic aneurysm Sister Hypertension Coronary artery disease Brother Hypertension Coronary artery disease Social History household members: spouse and children Smoking Status: Former smoker alcohol intake: never Assessment & Plan Assessment & Plan narrative: 1. Systemic inflammatory response syndrome Patient presents with fever, tachycardia, leukocytosis.? She has a negative lactate, negative procalcitonin.? Viral studies negative.? Urinalysis negative.? Blood cultures remain negative thus far.? X-ray shows some hypoinflation versus early infiltrate.? Patient does have clinical symptoms consistent with COVID infection despite a negative COVID test.? It is possible the COVID test was done too early in the illness versus her viral load being low enough not to trigger a positive test.? Given her sore throat, cough, aches, fever, she was placed in droplet precautions d/t clinical concern for COVID. ?Lungs remain clear at this time. She has had resolution of her tachycardia, fever, and leukocytosis. 2. Cough/fever As above, could be viral secondary to clinical picture consistent with COVID versus early pneumonia.? Patient will be continued on Rocephin as well as azithromycin.? She does not need any cough suppressants, breathing treatments at this time.? Her cough is improved. Her fever has resolved. Will continue to monitor. 3. Acute hypoxic respiratory failure Now resolved, weaned to room air this am. 4. Leukocytosis Resolved. 5. COPD Currently no evidence of exacerbation.? We will monitor.? She does not utilize any respiratory treatments at baseline 6. Hypertension Continue her usual home medications.? Mildly hypotensive today, but asymptomatic. Will monitor. 7. Coronary artery disease Patient has not had a prior [place].? She was stented remotely in 1994.? She is pre sently asymptomatic. 8. CKD 3 Patient appears to be at baseline.? Creatinine stable at 1.34. 9. Hypokalemia Repleted this am. Normal mag level. Recheck labs in am. 10. Hypocalcemia Will add tums. 11.? Remote brain aneurysm with leak Status post repair remotely. Code status Full Prophylaxis Low Shannan score Disposition Pt would like to remain in the hospital until tomorrow. Will repeat covid test tomorrow. Time Spent With Patient Critical Care time: I spent a total of [] minutes of critical care time on this patient's care today; this time is exclusive of procedural time. Quality VTE Deep Vein Thrombosis/Pulmonary Embolism Present on Admission: No
[2022-01-27] MEDS: AZITHROMYCIN 500 MG in DEXTROSE 5% IN WATER 250 ML 250 MG IV (15:29)
--- NOTE | 2022-01-27 17:49 | PC.NURSE ---
Pt is AxOx4, independent and cooperative. VSS, pt is on RA and sats 95-96%. No SOB noted after activity. Pt has improved much better since yesterday. Pt was talkative, and laughing. Pt c/o headache around 2pm and recieved PRN Tylenol with good effect. Pt's K-2.9 today and pt recieved PO Potassium today. pt maybe d/c home tomorrow. continue droplet precaution till tomorrow to get Covid tested. No other changes.
[2022-01-27] MEDS: ATORVASTATIN 20 MG TABLET 40 MG PO (20:29)
[2022-01-28 04:00] VITALS: BP 143/87; PULSE 101; RESP 17; TEMP 36.4; O2SAT 92
[2022-01-28 05:52] LABS: BUN Creatinine Ratio 10.9 (6-22); Blood Urea Nitrogen 11 mg/dL (7-17); Calcium 8.2 mg/dL (8.4-10.2); Carbon Dioxide 27 mmol/L (22-32); Chloride 105 mmol/L (98-107); Estimated Glomerular Filt Rate 60 mL/min (>60); Glucose 101 mg/dL (80-110); HEMOLYSIS < 15 (0-50); Potassium 3.5 mmol/L (3.4-5.1); Sodium 138 mmol/L (137-145)
[2022-01-28 06:01] LABS: Add Manual Diff / Slide Review NO; Basophils Absolute Auto 0 /uL (0-100); Basophils Percent Auto 0.5 % (0-2); Eosinophils Absolute Auto 100 /uL (0-450); Eosinophils Percent Auto 1.2 % (2-4); Hematocrit 36.4 % (36-46); Hemoglobin 12.2 g/dL (12.0-16.0); Lymphocytes Absolute Auto 1100 /uL (1100-4500); Lymphocytes Percent Auto 10.5 % (25-40); Mean Corpuscular HGB Conc 33.6 % (30-36); Mean Corpuscular Volume 83.4 fL (80-100); Monocytes Absolute Auto 1000 /uL (0-900); Monocytes Percent Auto 10.1 % (3-14); Neutrophils Absolute Auto 8100 /uL (1500-7000); Neutrophils Percent Auto 77.7 % (50-75); Platelet Count 205 X10^3/uL (150-400); Red Blood Cell Count 4.37 X10^6/uL (4.0-5.2); Red Cell Distribution Width 14.8 % (11.6-14.8); White Blood Cell Count 10.4 X10^3/uL (4.5-11.0)
[2022-01-28] MEDS: ACETAMINOPHEN 325 MG TABLET 650 MG PO (06:57)
[2022-01-28 07:00] VITALS: O2SAT 94
[2022-01-28 07:54] VITALS: O2SAT 96
[2022-01-28 08:01] LABS: COVID-19 CEPHEID PCR (VTM/NP) Negative (Negative)
[2022-01-28 09:03] VITALS: BP 139/85; PULSE 100
[2022-01-28] MEDS: LABETALOL 100 MG TABLET 300 MG PO (09:03)
[2022-01-28] MEDS: FUROSEMIDE 40 MG TABLET PO (09:04)
[2022-01-28] MEDS: FAMOTIDINE 20 MG TABLET PO (09:04)
[2022-01-28] MEDS: AMLODIPINE 5 MG TABLET 10 MG PO (09:04)
[2022-01-28] MEDS: CALCIUM CARBONATE 500 MG TAB 1000 MG PO (09:04)
[2022-01-28] MEDS: POTASSIUM CHLORIDE 20 MEQ TAB PO (10:15)
[2022-01-28 10:16] VITALS: BP 152/70; PULSE 85
[2022-01-28 11:19] VITALS: BP 120/74; PULSE 89; RESP 17; TEMP 36.5; O2SAT 95
--- NOTE | 2022-01-28 11:19 | PM.DS.1 ---
History of Present Illness History of Present Illness Date Patient Seen: 01/28/22 Chief complaint: cough Narrative: On presentation: 71-year-old female with COPD, hypertension, hyperlipidemia, CKD 3, remote smoker, coronary artery disease with previous stent x1, as well as previous history of brain aneurysm status post clipping remotely who presented to the emergency department with generalized ill symptoms.? Patient lives with her daughter, son-in-law, and has been.? She was in her usual state of health until yesterday morning when she had a general sense of feeling unwell.? Last night, she continued to feel unwell but had no focal symptoms.? Overnight she did have some cough and shortness of breath.? She reports this morning she developed a very sore throat.? Her daughter got home from work at approximately 11:30 a.m. and found her mom still in bed which was very unusual.? She was complaining of generalized body aches.? Patient states she has had a cough for a couple of days.? She denies having felt feverish but has been having chills.? Daughter reports that she felt clammy earlier today.? Patient denies any nausea, vomiting, or diarrhea.? She states she was up 5-6 times last night to urinate and had to use the day to support her as she felt unsteady.? She denies any dizziness.? No chest pain.? No shortness breaths.? She does know any ill exposure with a niece who had been over to the home for couple of days earlier in the week.? The other family members with whom she lives are not feel at this time.? Patient was previously vaccinated for COVID with 2 Pfizer shots followed by 2 booster shots.? She tested positive in August of 2021 for COVID.? She was more ill with primarily cold symptoms that were relatively mild at that time.? Daughter notes they were quite surprised that her COVID test was positive Discharge Providers Provider Date of admission: 01/26/22 15:11 Discharge Date: 01/28/22 Primary care physician: Vahid Ott MD Discharge provider: Abigail Powers MD Summary Hospital Course Discharge Diagnosis: Systemic inflammatory repsonse with Respiratory infection and initial acute hypoxia that was non-COVID in setting of COPD Hospital Course: Patient presented with fever, tachycardia, leukocytosis as well as some hypoxia. This was a systemic inflammatory response in setting of a patient with COPD. COVID test were repeatedly negative. Patient treated with ceftriaxone and azithromycin as well as O2 supplementation. Patient responded quickly and on the day of discharge was back to her usual baseline not requiring O2 supplementation at the time of discharge. Initially white blood count was elevated however this resolved to normal on the day after admission. On the day of discharge white blood count 10.4 hemoglobin 12.2 sodium 138 potassium 3.5 chloride 105 BUN 11 creatinine 1.01 calcium slightly low at 8.2 and repeated COVID test was negative. Status at Discharge Cognitive/behavioral status at discharge: at baseline, oriented Functional status at discharge: independent ambulation Overall status at discharge: patient is back to baseline Exam Vital Signs (past 8 hours): - 01/28/22 04:00 01/28/22 04:00 01/28/22 07:54 Temperature 97.6 F Pulse Rate 101 H 101 H Respiratory Rate 17 Blood Pressure 143/87 H 143/87 H Pulse Oximetry 92 96 Oxygen Delivery Method Nasal Cannula Oxygen Flow Rate 2 Fraction of Inspired Oxygen 28 01/28/22 09:03 01/28/22 07:00 01/28/22 10:16 Temperature Pulse Rate 100 H 85 Respiratory Rate Blood Pressure 139/85 152/70 H Pulse Oximetry 94 Oxygen Delivery Method Room Air Oxygen Flow Rate Fraction of Inspired Oxygen Fraction of Inspired Oxygen 28 Oxygen Delivery Method Nasal Cannula Oxygen Flow Rate 2 Narrative Exam Narrative: Patient appears to be in no acute distress. HEENT: Patient wearing glasses. Pupils equal reactive to light. Extraocular movements normal. Neck: Supple. Trachea midline. Cardiovascular: Heart sounds S1 and S2. Peripheral pulses equal bilaterally. Respiratory: General decreased air entry throughout the lung meek but no wheezes or crackles. No oxygen supplementation required. Gastrointestinal: Abdomen is soft. Bowel sounds normal. Musculoskeletal: Able to move all extremities volitionally. No specific localized strength deficits. Neuro: Normal mentation. No numbness or tingling in any extremities Skin: No lesions or rashes. Objective Labs Result Diagrams: 01/28/22 05:28 01/28/22 05:28 Labs: Laboratory Results - last 24 hr 01/28/22 01/28/22 01/28/22 05:28 05:28 06:55 WBC 10.4 RBC 4.37 Hgb 12.2 Hct 36.4 MCV 83.4 MCH 28.0 MCHC 33.6 RDW 14.8 Plt Count 205 Neut % (Auto) 77.7 H Lymph % (Auto) 10.5 L [place] % (Auto) 10.1 Eos % (Auto) 1.2 L Baso % (Auto) 0.5 Neut # (Auto) 8100 H Lymph # (Auto) 1100 [place] # (Auto) 1000 H Eos # (Auto) 100 Baso # (Auto) 0 Sodium 138 Potassium 3.5 Chloride 105 Carbon Dioxide 27 BUN 11 Creatinine 1.01 Estimated GFR 60 BUN/Creatinine Ratio 10.9 Glucose 101 Calcium 8.2 L SARS-CoV-2 (PCR) Negative [facility] Medical History CVA (cerebral vascular accident) Hypertension Family History (Updated 01/26/22 @ 18:34 by Sally Munroe MD) Father Hypertension Mother Gallstones Abdominal aortic aneurysm Sister Hypertension Coronary artery disease Brother Hypertension Coronary artery disease Social History household members: spouse and children Smoking Status: Former smoker alcohol intake: never Discharge Plan Discharge Plan Patient Disposition: Home Discharge orders & Medications Prescriptions: Continued atorvastatin [Lipitor] 40 mg tablet 40 mg PO HS Qty: 30 0RF Rx Instructions: PT NEEDS TO BE SEEN BEFORE NEXT FILL 01/29/21 + 04/26/21 albuterol sulfate 90 mcg/actuation HFA aerosol inhaler 2 puff inhalation Q4-6H PRN (Reason: shortness of breath or wheezing) Qty: 8.5 11RF furosemide 40 mg tablet 40 mg PO DAILY amlodipine 10 mg tablet 10 mg PO DAILY labetalol 300 mg tablet 300 mg PO BID clotrimazole-betamethasone 1-0.05 % cream 1 applic Topical BID PRN (Reason: rash) Qty: 45 1RF Rx Instructions: Apply 1 application twice a day as needed to the affected area. Apply for no longer than 2 weeks. nystatin 100,000 unit/gram powder 1 applic TOP BID PRN (Reason: Rash) Qty: 30 2RF Excedrin Tension Headache 0.5 tab PO BID PRN (Reason: Headache) famotidine 20 mg Tablet 20 mg PO DAILY Follow up/Referrals: Vahid Ott MD [Primary Care Provider] - Diet/Activity/Treatments Diet: Diet as Tolerated Discharge Data Primary Care Provider: Vahid Ott Attending Provider: Sally Munroe Quality VTE Deep Vein Thrombosis/Pulmonary Embolism Present on Admission: No
[2022-01-28] MEDS: cefTRIAXone 1,000 MG in SODIUM CHLORIDE 0.9% 100 ML 200 MG IV (12:13)
[2022-01-28] MEDS: ONDANSETRON 4 MG/2 ML INJ IV (13:14)
--- NOTE | 2022-01-28 14:05 | PC.NURSE ---
Pt received A&Ox3, VSS afebrile on RA. She has a persistent dry cough and diminished LS, encouraged to use the IS. She denies SOB, and verbalizes feeling body aches slightly improved after tylenol this a.m. She is able to tolerate breakfast but c/o stomach feeling upset she denies any vomiting. She ambulates in her room independently and showers. MD at bedside clearing her for discharge home and patient verbalizes agreement and understanding of discharge plan. She is escorted by w/ch with RADIO TECHNICIAN to private vehicle with her daughter and all of her belongings for discharge home.
--- NOTE | 2022-01-29 13:28 | PM.DS.1 ---
History of Present Illness History of Present Illness Chief complaint: cough Narrative: On presentation: 71-year-old female with COPD, hypertension, hyperlipidemia, CKD 3, remote smoker, coronary artery disease with previous stent x1, as well as previous history of brain aneurysm status post clipping remotely who presented to the emergency department with generalized ill symptoms.? Patient lives with her daughter, son-in-law, and has been.? She was in her usual state of health until yesterday morning when she had a general sense of feeling unwell.? Last night, she continued to feel unwell but had no focal symptoms.? Overnight she did have some cough and shortness of breath.? She reports this morning she developed a very sore throat.? Her daughter got home from work at approximately 11:30 a.m. and found her mom still in bed which was very unusual.? She was complaining of generalized body aches.? Patient states she has had a cough for a couple of days.? She denies having felt feverish but has been having chills.? Daughter reports that she felt clammy earlier today.? Patient denies any nausea, vomiting, or diarrhea.? She states she was up 5-6 times last night to urinate and had to use the day to support her as she felt unsteady.? She denies any dizziness.? No chest pain.? No shortness breaths.? She does know any ill exposure with a niece who had been over to the home for couple of days earlier in the week.? The other family members with whom she lives are not feel at this time.? Patient was previously vaccinated for COVID with 2 Pfizer shots followed by 2 booster shots.? She tested positive in August of 2021 for COVID.? She was more ill with primarily cold symptoms that were relatively mild at that time.? Daughter notes they were quite surprised that her COVID test was positive Discharge Providers Provider Date of admission: 01/26/22 15:11 Discharge Date: 01/28/22 Primary care physician: Vahid Ott MD Discharge provider: Abigail Powers MD Summary Status at Discharge Cognitive/behavioral status at discharge: at baseline, oriented Functional status at discharge: independent ambulation Overall status at discharge: patient is back to baseline Time Spent with Patient Time spent: Greater than 30 minutes Exam Vital Signs (past 8 hours): Fraction of Inspired Oxygen 28 Oxygen Delivery Method Nasal Cannula Oxygen Flow Rate 0 Narrative Exam Narrative: Patient appears to be in no acute distress. HEENT:? Patient wearing glasses.? Pupils equal reactive to light.? Extraocular movements normal. Neck:? Supple.? Trachea midline. Cardiovascular:? Heart sounds S1 and S2.? Peripheral pulses equal bilaterally. Respiratory:? General decreased air entry throughout the lung meek but no wheezes or crackles.? No oxygen supplementation required. Gastrointestinal:? Abdomen is soft.? Bowel sounds normal. Musculoskeletal:? Able to move all extremities volitionally.? No specific localized strength deficits. Neuro:? Normal mentation.? No numbness or tingling in any extremities Skin:? No lesions or rashes. Objective Labs Result Diagrams: 01/28/22 05:28 01/28/22 05:28 [facility] Medical History CVA (cerebral vascular accident) Hypertension Family History (Updated 01/26/22 @ 18:34 by Sally Munroe MD) Father Hypertension Mother Gallstones Abdominal aortic aneurysm Sister Hypertension Coronary artery disease Brother Hypertension Coronary artery disease Social History household members: spouse and children Smoking Status: Former smoker alcohol intake: never Discharge Assessment & Plan Assessment and Plan Assessment: 1.? Systemic inflammatory response syndrome Patient presented with fever, tachycardia, leukocytosis.? She has a negative lactate, negative procalcitonin.? Viral studies negative.? Urinalysis negative.? Blood cultures remained negative.? X-ray shows some hypoinflation versus early infiltrate.? Patient did have clinical symptoms consistent with COVID infection despite a negative COVID test.? It is possible the COVID test was done too early in the illness versus her viral load being low enough not to trigger a positive test.? Given her sore throat, cough, aches, fever, she was placed in droplet precautions d/t clinical concern for COVID.? ?Lungs remained clear.? She has had resolution of her tachycardia, fever, and leukocytosis. 2. Cough/fever As above, could be viral secondary to clinical picture consistent with COVID versus early pneumonia.?? Her cough is improved.? Her fever has resolved.? Stable prior to discharge. 3. Acute hypoxic respiratory failure Now resolved, weaned to room air prior to discharge. However on presentation, the patient was documented to be mildly hypoxic initially with saturations in the high 80s in room air.? She was placed on 2 L of oxygen with saturations up into the 90s. ? 4. Leukocytosis Resolved. 5.? COPD Currently no evidence of exacerbation.? 6. Hypertension Continue her usual home medications.? 7. Coronary artery disease Patient has not had a prior PR.? She was stented remotely in 1994.? She is presently asymptomatic prior to discharge. 8. CKD 3 Patient appears to be at baseline.? Creatinine stable at 101 prior to discharge. 9.? Hypokalemia Repleted and normal prior to discharge. 10.? Hypocalcemia Treated with tums. 11.? Remote brain aneurysm with leak Status post repair remotely. Code status Full Discharge Plan Discharge Plan Patient Disposition: Home Discharge orders & Medications Prescriptions: Continued atorvastatin [Lipitor] 40 mg tablet 40 mg PO HS Qty: 30 0RF Rx Instructions: PT NEEDS TO BE SEEN BEFORE NEXT FILL 01/29/21 + 04/26/21 albuterol sulfate 90 mcg/actuation HFA aerosol inhaler 2 puff inhalation Q4-6H PRN (Reason: shortness of breath or wheezing) Qty: 8.5 11RF furosemide 40 mg tablet 40 mg PO DAILY amlodipine 10 mg tablet 10 mg PO DAILY labetalol 300 mg tablet 300 mg PO BID clotrimazole-betamethasone 1-0.05 % cream 1 applic Topical BID PRN (Reason: rash) Qty: 45 1RF Rx Instructions: Apply 1 application twice a day as needed to the affected area. Apply for no longer than 2 weeks. nystatin 100,000 unit/gram powder 1 applic TOP BID PRN (Reason: Rash) Qty: 30 2RF Excedrin Tension Headache 0.5 tab PO BID PRN (Reason: Headache) famotidine 20 mg Tablet 20 mg PO DAILY Follow up/Referrals: Vahid Ott MD [Primary Care Provider] - Diet/Activity/Treatments Diet: Diet as Tolerated Discharge Data Primary Care Provider: Vahid Ott Attending Provider: Sally Munroe Quality VTE Deep Vein Thrombosis/Pulmonary Embolism Present on Admission: No
--- NOTE | 2022-01-29 18:05 | P.DS_ITS ---
History of Present Illness History of Present Illness Date Patient Seen: 01/28/22 Chief complaint: cough Narrative: On presentation: 71-year-old female with COPD, hypertension, hyperlipidemia, CKD 3, remote smoker, coronary artery disease with previous stent x1, as well as previous history of brain aneurysm status post clipping remotely who presented to the emergency department with generalized ill symptoms.? Patient lives with her daughter, son-in-law, and has been.? She was in her usual state of health until yesterday morning when she had a general sense of feeling unwell.? Last night, she continued to feel unwell but had no focal symptoms.? Overnight she did have some cough and shortness of breath.? She reports this morning she developed a very sore throat.? Her daughter got home from work at approximately 11:30 a.m. and found her mom still in bed which was very unusual.? She was complaining of generalized body aches.? Patient states she has had a cough for a couple of da ys.? She denies having felt feverish but has been having chills.? Daughter reports that she felt clammy earlier today.? Patient denies any nausea, vomiting, or diarrhea.? She states she was up 5-6 times last night to urinate and had to use the day to support her as she felt unsteady.? She denies any dizziness.? No chest pain.? No shortness breaths.? She does know any ill exposure with a niece who had been over to the home for couple of days earlier in the week.? The other family members with whom she lives are not feel at this time.? Patient was previously vaccinated for COVID with 2 Pfizer shots followed by 2 booster shots.? She tested positive in August of 2021 for COVID.? She was more ill with primarily cold symptoms that were relatively mild at that time.? Daughter notes they were quite surprised that her COVID test was positive Discharge Providers Provider Date of admission: 01/26/22 15:11 Discharge Date: 01/28/22 Primary care physician: Vahid Ott MD Discharge provider: Abigail Powers MD Summary Hospital Course Discharge Diagnosis: Discharge Diagnosis: Systemic inflammatory repsonse with Respiratory infection and initial acute hypoxia that was non-COVID in setting of COPD Hospital Course: Hospital Course: Patient presented with fever, tachycardia, leukocytosis as well as some hypoxia.? This was a systemic inflammatory response in setting of a patient with COPD.? COVID test were repeatedly negative.? Patient treated with ceftriaxone and azithromycin as well as O2 supplementation.? Patient responded quickly and on the day of discharge was back to her usual baseline not requiring O2 perry pplementation at the time of discharge.? Initially white blood count was elevated however this resolved to normal on the day after admission.? On the day of discharge white blood count 10.4 hemoglobin 12.2 sodium 138 potassium 3.5 chloride 105 BUN 11 creatinine 1.01 calcium slightly low at 8.2 and repeated COVID test was negative. Status at Discharge Cognitive/behavioral status at discharge: at baseline, oriented Functional status at discharge: independent ambulation Overall status at discharge: patient is back to baseline Exam Vital Signs (past 8 hours): Fraction of Inspired Oxygen 28 Oxygen Delivery Method Nasal Cannula Oxygen Flow Rate 0 Narrative Exam Narrative: Patient appears to be in no acute distress. HEENT:? Patient wearing glasses.? Pupils equal reactive to light.? Extraocular movements normal. Neck:? Supple.? Trachea midline. Cardiovascular:? Heart sounds S1 and S2.? Peripheral pulses equal bilaterally. Respiratory:? General decreased air entry throughout the lung meek but no wheezes or crackles.? No oxygen supplementation required. Gastrointestinal:? Abdomen is soft.? Bowel sounds normal. Musculoskeletal:? Able to move all extremities volitionally.? No specific localized strength deficits. Neuro:? Normal mentation.? No numbness or tingling in any extremities Skin:? No lesions or rashes. Objective Labs Result Diagrams: 01/28/22 05:28 01/28/22 05:28 [facility] Medical History CVA (cerebral vascular accident) Hypertension Family History (Updated 01/26/22 @ 18:34 by Sally Munroe MD) Father Hypertension Mother Gallstones Abdominal aortic aneurysm Sister Hypertension Coronary artery disease Brother Hypertension Coronary artery disease Social History household members: spouse and children Smoking Status: Former smoker alcohol intake: never Discharge Assessment & Plan Assessment and Plan Assessment: 1.? Systemic inflammatory response syndrome Patient presented with fever, tachycardia, leukocytosis.? She has a negative lactate, negative procalcitonin.? Viral studies negative.? Urinalysis negative.? Blood cultures remained negative.? X-ray shows some hypoinflation versus early infiltrate.? Patient did have clinical symptoms consistent with COVID infection despite a negative COVID test.? It is possible the COVID test was done too early in the illness versus her viral load being low enough not to trigger a positive test.? Given her sore throat, cough, aches, fever, she was placed in droplet precautions d/t clinical concern for COVID.? ?Lungs remained clear.? She has had resolution of her tachycardia, fever, and leukocytosis. 2. Cough/fever As above, could be viral secondary to clinical picture consistent with COVID versus early pneumonia.?? Her cough is improved.? Her fever has resolved.? Stable prior to discharge. 3. Acute hypoxic respiratory failure Now resolved, weaned to room air prior to discharge. However on presentation, the patient was documented with acute hypoxic respiratory failure documented by notation of hypoxic initially with saturations in the high 80s in room air.? She was placed on 2 L of oxygen with saturations up into the 90s. ? 4. Leukocytosis Resolved. 5.? COPD Currently no evidence of exacerbation.? 6. Hypertension Continue her usual home medications.? 7. Coronary artery disease Patient has not had a prior [place].? She was stented remotely in 1994.? She is presently asymptomatic prior to discharge. 8. CKD 3 Patient appears to be at baseline.? Creatinine stable at 101 prior to discharge. 9.? Hypokalemia Repleted and normal prior to discharge. 10.? Hypocalcemia Treated with tums. 11.? Remote brain aneurysm with leak Status post repair remotely. Code status Full Discharge Plan Discharge Plan Patient Disposition: Home Discharge orders & Medications Prescriptions: Continued atorvastatin [Lipitor] 40 mg tablet 40 mg PO HS Qty: 30 0RF Rx Instructions: PT NEEDS TO BE SEEN BEFORE NEXT FILL 01/29/21 + 04/26/21 albuterol sulfate 90 mcg/actuation HFA aerosol inhaler 2 puff inhalation Q4-6H PRN (Reason: shortness of breath or wheezing) Qty: 8.5 11RF furosemide 40 mg tablet 40 mg PO DAILY amlodipine 10 mg tablet 10 mg PO DAILY labetalol 300 mg tablet 300 mg PO BID clotrimazole-betamethasone 1-0.05 % cream 1 applic Topical BID PRN (Reason: rash) Qty: 45 1RF Rx Instructions: Apply 1 application twice a day as needed to the affected area. Apply for no longer than 2 weeks. nystatin 100,000 unit/gram powder 1 applic TOP BID PRN (Reason: Rash) Qty: 30 2RF Excedrin Tension Headache 0.5 tab PO BID PRN (Reason: Headache) famotidine 20 mg Tablet 20 mg PO DAILY Follow up/Referrals: Vahid Ott MD [Primary Care Provider] - Diet/Activity/Treatments Diet: Diet as Tolerated Discharge Data Primary Care Provider: Vahid Ott Attending Provider: Sally Munroe VTE Deep Vein Thrombosis/Pulmonary Embolism Present on Admission: No
== END 2022-01-28 13:30 | disposition home or self-care (01) ==
LOC: ED 13:20 → AC 15:17
PROVIDERS: Admitting Provider Family Medicine; Emergency Provider Emergency Medicine; Family Provider Student in an Organized Health Care Education/Training Program; PCP Student in an Organized Health Care Education/Training Program; Referring Provider Emergency Medicine; Visit Provider Family Medicine
DX: R65.10 Systemic inflammatory response syndrome (SIRS) of non-infectious origin without acute organ dysfunction (principal); J96.01 Acute respiratory failure with hypoxia; E83.51 Hypocalcemia; I12.9 Hypertensive chronic kidney disease with stage 1 through stage 4 chronic kidney disease, or unspecified chronic kidney disease; N18.30 Chronic kidney disease, stage 3 unspecified; J44.9 Chronic obstructive pulmonary disease, unspecified; E78.5 Hyperlipidemia, unspecified; I25.10 Atherosclerotic heart disease of native coronary artery without angina pectoris; Z87.891 Personal history of nicotine dependence; Z20.822 Contact with and (suspected) exposure to COVID-19
CPT/HCPCS: 36415; 51798; 71045; 80048; 80053; 81001; 83605; 83690; 83735; 84145; 85025; 87040; 87086; 87633; 87635; 93005; 94760; 96365; 96366; 96367; 96368; 96375; 99284; C9803; G0378; U0003; U0005; A9270; J0696; J2405; J7050

== ENCOUNTER → 2022-05-15 10:04 | Outpatient (CLI) | payer MEDICARE, OTHER, SELFPAY ==
[2022-01-26 15:31] VITALS: BMI 31.8
[2022-05-15 11:18] LABS: Add Manual Diff / Slide Review NO; Basophils Absolute Auto 100 /uL (0-100); Basophils Percent Auto 0.8 % (0-2); Eosinophils Absolute Auto 300 /uL (0-450); Eosinophils Percent Auto 3.5 % (2-4); Hematocrit 38.9 % (36-46); Hemoglobin 13.1 g/dL (12.0-16.0); Lymphocytes Absolute Auto 1300 /uL (1100-4500); Lymphocytes Percent Auto 18.1 % (25-40); Mean Corpuscular HGB Conc 33.6 % (30-36); Mean Corpuscular Hemoglobin 28.3 PG (26-34); Mean Corpuscular Volume 84.2 fL (80-100); Monocytes Absolute Auto 800 /uL (0-900); Monocytes Percent Auto 11.1 % (3-14); Neutrophils Absolute Auto 4900 /uL (1500-7000); Neutrophils Percent Auto 66.5 % (50-75); Platelet Count 252 X10^3/uL (150-400); Red Blood Cell Count 4.62 X10^6/uL (4.0-5.2); Red Cell Distribution Width 14.6 % (11.6-14.8); White Blood Cell Count 7.4 X10^3/uL (4.5-11.0)
[2022-05-15 11:28] LABS: BUN Creatinine Ratio 14.9 (6-22); Blood Urea Nitrogen 22 mg/dL (7-17); Carbon Dioxide 28 mmol/L (22-32); Chloride 103 mmol/L (98-107); Estimated Glomerular Filt Rate 38 mL/min (>60); Glucose 107 mg/dL (80-110); HEMOLYSIS < 15 (0-50); Magnesium 1.9 mg/dL (1.6-2.3); Phosphorous 4.1 mg/dL (2.8-4.1); Potassium 4.1 mmol/L (3.4-5.1); Sodium 140 mmol/L (137-145); Uric Acid 7.3 mg/dL (2.5-6.2)
[2022-05-15 11:29] LABS: Hemoglobin A1C% w Est Avg Glu 5.9 % (4.0-6.0)
[2022-05-15 12:03] LABS: Vitamin D 25 Hydroxy (D3) 31.3 ng/mL (30.0-100.0)
[2022-05-16 08:40] LABS: Parathyroid Hormone Int 77 pg/mL (15-65)
== END ==
PROVIDERS: Family Provider Student in an Organized Health Care Education/Training Program; PCP Student in an Organized Health Care Education/Training Program; Referring Provider Internal Medicine Nephrology; Visit Provider Internal Medicine Nephrology
DX: N18.32 Chronic kidney disease, stage 3b (principal); R73.01 Impaired fasting glucose
CPT/HCPCS: 36415; 80048; 82306; 83036; 83735; 83970; 84100; 84550; 85025

== ENCOUNTER → 2022-11-19 08:46 | Outpatient (CLI) | payer MEDICARE, OTHER, SELFPAY ==
[2022-01-26 15:31] VITALS: BMI 31.8
[2022-11-19 10:03] LABS: Add Manual Diff / Slide Review NO; Basophils Absolute Auto 0 /uL (0-100); Basophils Percent Auto 0.6 % (0-2); Eosinophils Absolute Auto 300 /uL (0-450); Eosinophils Percent Auto 3.5 % (2-4); Hematocrit 39.4 % (36-46); Lymphocytes Absolute Auto 1300 /uL (1100-4500); Lymphocytes Percent Auto 15.8 % (25-40); Mean Corpuscular Hemoglobin 27.8 PG (26-34); Mean Corpuscular Volume 84.4 fL (80-100); Monocytes Absolute Auto 1100 /uL (0-900); Monocytes Percent Auto 13.4 % (3-14); Neutrophils Absolute Auto 5500 /uL (1500-7000); Neutrophils Percent Auto 66.7 % (50-75); Platelet Count 249 X10^3/uL (150-400); Red Blood Cell Count 4.67 X10^6/uL (4.0-5.2); Red Cell Distribution Width 14.4 % (11.6-14.8); White Blood Cell Count 8.2 X10^3/uL (4.5-11.0)
[2022-11-19 10:38] LABS: Alanine Aminotransferase 21 IU/L (<35); Albumin 3.8 g/dL (3.5-5.0); Albumin Globulin Ratio 1.2 (1.0-2.8); Alkaline Phosphatase 78 U/L (38-126); Aspartate Aminotransferase 26 IU/L (14-36); BUN Creatinine Ratio 15.3 (6-22); Bilirubin Total 1.1 mg/dL (0.2-1.3); Blood Urea Nitrogen 24 mg/dL (7-17); Carbon Dioxide 29 mmol/L (22-32); Chloride 102 mmol/L (98-107); Estimated Glomerular Filt Rate 35 mL/min (>60); Globulin 3.1 g/dL (1.7-4.1); Glucose 116 mg/dL (80-110); HEMOLYSIS < 15 (0-50); Magnesium 1.9 mg/dL (1.6-2.3); Phosphorous 3.9 mg/dL (2.8-4.1); Sodium 137 mmol/L (137-145); Total Protein 6.9 g/dL (6.3-8.2); Uric Acid 6.4 mg/dL (2.5-6.2)
[2022-11-19 10:51] LABS: Vitamin D 25 Hydroxy (D3) 36.3 ng/mL (30.0-100.0)
[2022-11-19 11:15] LABS: Creatinine Urine Random 301.6 mg/dL
[2022-11-19 11:18] LABS: Microalbumi Creatinin Ratio Ur 35.8 ug/mg CR (<30); Microalbumin Urine Random 10.8 mg/dL (0-1.6)
[2022-11-20 06:37] LABS: x Labcorp Estim. Avg Glu (eAG) 134 mg/dL (.); x Labcorp Hemoglobin A1c 6.3 % (4.8-5.6)
[2022-11-21 09:45] LABS: Parathyroid Hormone Int 66 pg/mL (15-65)
== END ==
PROVIDERS: Family Provider Student in an Organized Health Care Education/Training Program; PCP Student in an Organized Health Care Education/Training Program; Referring Provider Internal Medicine Nephrology; Visit Provider Internal Medicine Nephrology
DX: N18.32 Chronic kidney disease, stage 3b (principal); E11.69 Type 2 diabetes mellitus with other specified complication; E11.9 Type 2 diabetes mellitus without complications; E78.5 Hyperlipidemia, unspecified; I10 Essential (primary) hypertension
CPT/HCPCS: 36415; 80053; 82043; 82306; 82570; 83036; 83735; 83970; 84100; 84550; 85025

== ENCOUNTER 2023-02-22 12:09 | Observation (INO) | payer MEDICARE, OTHER, SELFPAY ==
[2022-01-26 15:31] VITALS: BMI 31.8
[2023-02-22] VITALS (17 sets, daily range): BP systolic 103–185; BP diastolic 46–88; PULSE 103–130; RESP 17–26; TEMP 36.9–38.9; O2SAT 91–99; BMI 32.4
--- NOTE | 2023-02-22 12:22 | DI.RAD.S_ITS ---
PROCEDURE: XR CHEST 1V INDICATIONS: suspected sepsis TECHNIQUE: One view of the chest was acquired. COMPARISON: [facility], CR, XR CHEST 1V, 01/26/2022, 13:24. FINDINGS: Surgical changes and devices: None. Lungs and pleura: Lungs are clear. No pleural effusions or pneumothorax. Mediastinum: Mediastinal contours appear normal. Heart size is normal. Bones and chest wall: No suspicious bony lesions. Overlying soft tissues appear unremarkable. IMPRESSION: No acute cardiopulmonary abnormalities or focal airspace disease. Dictated by: Gabe Moss M.D. on 02/22/2023 at 11:50 Approved by: Gabe Moss M.D. on 02/22/2023 at 11:54
[2023-02-22] MEDS: ACETAMINOPHEN 325 MG TABLET 975 MG PO (12:25)
[2023-02-22] MEDS: SODIUM CHLORIDE 0.9% 1,000 ML 1000 ML IV (12:26)
[2023-02-22 12:30] LABS: Add Manual Diff / Slide Review NO; Basophils Absolute Auto 100 /uL (0-100); Basophils Percent Auto 0.7 % (0-2); Eosinophils Absolute Auto 0 /uL (0-450); Eosinophils Percent Auto 0.3 % (2-4); Hematocrit 40.3 % (36-46); Hemoglobin 13.4 g/dL (12.0-16.0); Lymphocytes Absolute Auto 800 /uL (1100-4500); Lymphocytes Percent Auto 5.1 % (25-40); Mean Corpuscular HGB Conc 33.3 % (30-36); Mean Corpuscular Hemoglobin 27.4 PG (26-34); Mean Corpuscular Volume 82.3 fL (80-100); Monocytes Absolute Auto 1700 /uL (0-900); Monocytes Percent Auto 11.7 % (3-14); Neutrophils Absolute Auto 12100 /uL (1500-7000); Neutrophils Percent Auto 82.2 % (50-75); Platelet Count 260 X10^3/uL (150-400); Red Cell Distribution Width 14.5 % (11.6-14.8); White Blood Cell Count 14.8 X10^3/uL (4.5-11.0)
[2023-02-22 12:30] LABS: COVID19 -Nasal RAPID POSITIVE (Negative)
[2023-02-22 12:33] LABS: INR 1.2 (0.9-1.3); Prothrombin Time 13.5 SECONDS (10.1-12.7)
[2023-02-22 12:35] LABS: Lactate (Lactic Acid) 1.4 mmol/L (0.7-2.1); PTT Partial Thromboplastin Tim 29 SECONDS (26-36)
[2023-02-22 12:37] LABS: Alanine Aminotransferase 22 IU/L (<35); Albumin 4.3 g/dL (3.5-5.0); Albumin Globulin Ratio 1.4 (1.0-2.8); Alkaline Phosphatase 94 U/L (38-126); Aspartate Aminotransferase 31 IU/L (14-36); BUN Creatinine Ratio 10.1 (6-22); Bilirubin Total 1.3 mg/dL (0.2-1.3); Blood Urea Nitrogen 16 mg/dL (7-17); Carbon Dioxide 29 mmol/L (22-32); Chloride 99 mmol/L (98-107); Estimated Glomerular Filt Rate 35 mL/min (>60); Globulin 3.1 g/dL (1.7-4.1); Glucose 137 mg/dL (80-110); HEMOLYSIS < 15 (0-50); Lipase 70 U/L (23-300); Potassium 3.6 mmol/L (3.4-5.1); Sodium 136 mmol/L (137-145); Total Protein 7.4 g/dL (6.3-8.2)
[2023-02-22 12:42] LABS: D Dimer 1024 ng/ml (<500)
[2023-02-22 12:53] LABS: Procalcitonin 0.11 ng/mL (<0.5)
--- NOTE | 2023-02-22 12:58 | ED.URI ---
HPI - URI/Sore Throat General Chief Complaint: Altered Mental Status Stated Complaint: COVID + Time Seen by Provider: 02/22/23 12:25 Source: EMS Mode of arrival: EMS History of Present Illness HPI Narrative: Patient is 72-year-old female history of COPD, hypertension, hyperlipidemia remote smoker, coronary artery disease with 1 stent presents today with increasing weakness difficulty breathing and probable COVID. She reports that other family members have COVID she had it once previously. She has general body aches and pains she has a temperature here of 102 with a heart rate of 130 blood pressure is stable at 1 80/86. She is early confused. She does report that yesterday she let her son's dog out who came and knocked her down she did hit her head no loss of consciousness no nausea or vomiting. Apparently there are some ?spacey? episodes that have been happening which happened last time when she had COVID as well. Oxygen is slightly low 90-92% on room air she does not typically require oxygen. Related Data Home Medications Medication Instructions Recorded Confirmed amlodipine 10 mg tablet 10 mg PO DAILY 10/21/18 02/22/23 labetalol 300 mg tablet 300 mg PO BID 10/21/18 03/06/22 Excedrin Tension Headache 0.5 tab PO BID PRN Headache 12/31/18 03/06/22 furosemide 20 mg tablet 20 mg PO DAILY 02/05/22 02/22/23 Previous Rx's Medication Instructions Recorded atorvastatin 40 mg tablet (Lipitor) 40 mg PO HS #30 tabs 04/26/21 clotrimazole-betamethasone 1 1 applic topical BID PRN rash #45 07/03/21 %-0.05 % topical cream grams nystatin 100,000 unit/gram topical 1 applic topical BID PRN Rash #30 07/03/21 powder grams albuterol sulfate 90 mcg/actuation 2 puff inhalation Q4-6H PRN 08/08/21 aerosol inhaler shortness of breath or wheezing #8.5 grams Allergies Allergy/AdvReac Type Severity Reaction Status Date / Time morphine Allergy Intermediate ITCHING Verified 02/22/23 12:18 hydrocodone Allergy Mild ITCH Verified 02/22/23 12:18 lisinopril Allergy Mild BACK Verified 02/22/23 12:18 PAIN/HAND NUMBNESS Review of Systems Review of Systems ROS Unobtainable: All systems reviewed & are unremarkable except as noted in HPI and below Patient History Medical History Kulkarni's esophagus determined by biopsy Coronary atherosclerosis CVA (cerebral vascular accident) ETD (eustachian tube dysfunction) Hypertension 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 Family History Father Hypertension Mother Gallstones Abdominal aortic aneurysm Sister Hypertension Coronary artery disease Brother Hypertension Coronary artery disease Social History household members: spouse and children Smoking Status: Former smoker alcohol intake: never Smoking Status: Former smoker alcohol intake frequency: other Substance Use Type: does not use Exam Initial Vital Signs Initial Vital Signs: Vital Signs Temperature 102 F H 02/22/23 12:09 Pulse Rate 130 H 02/22/23 12:09 Respiratory Rate 18 02/22/23 12:09 Blood Pressure 180/86 H 02/22/23 12:09 Pulse Oximetry 99 02/22/23 12:09 Oxygen Delivery Method Room Air 02/22/23 12:09 GENERAL: Alert 72-year-old female mildly confused generally weak HEENT: Head atraumatic,EOMI, pupils reactive, face symmetric, [moist] mucous membranes CARDIOVASCULAR: Regular rate and rhythm without murmurs, rubs or gallops. RESPIRATORY: Breath sounds equal bilaterally, no wheezes rales or rhonchi. ABDOMEN: Soft, nontender. Normoactive bowel sounds all 4 quadrants. No guarding or rebound. EXTREMITIES: Normal range of motion, no clubbing or edema. Neurovascularly intact NEUROLOGICAL: Alert and oriented x4.Normal gait and speech. Cranial nerves II through XII grossly intact. 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 Course Orders Ordered: ED Orders 02/22/23 12:10 Complete Blood Count AUTO DIFF Stat Comprehensive Metabolic Panel Stat D Dimer Stat Lactate (Lactic Acid) Stat Lipase Stat PTT Partial Thromboplastin Tucker Stat Procalcitonin Stat Prothrombin Time INR Stat 02/22/23 12:16 COVID19 -Nasal RAPID Stat 02/22/23 12:22 XR chest 1V Stat EKG-12 Lead Stat RT Consult Eval and Treat NOW 02/22/23 13:09 CT angio chest PE protocol Stat 02/22/23 13:11 CT head/brain wo con Stat Acetaminophen (Acetaminophen 325 Mg Tablet) 650 mg PO Q6H PRN PRN Reason: Pain, Mild (1-3), fever Albuterol/Ipratropium (Albuterol/Ipratropium 3 Ml Ampul) 3 ml INH [id number] PRN PRN Reason: shortness of breath/wheezing Amlodipine Besylate (Amlodipine 5 Mg Tablet) 10 mg PO DAILY [facility] Atorvastatin Calcium (Atorvastatin 20 Mg Tablet) 40 mg PO BEDTIME JONNIE Benzonatate (Benzonatate 100 Mg Capsule) 100 mg PO TID PRN PRN Reason: Cough Last Admin: 02/22/23 17:19 Dose: 100 mg Documented By: GUANAKITO Dextrose (Dextrose 50 % In Water 25 Gm/50 Ml Syringe) 25 gm IV PRN PRN PRN Reason: Hypoglycemia Enoxaparin Sodium (Enoxaparin 40 Mg/0.4 Ml Syringe) 40 mg SUBCUT DAILY [facility] Guaifenesin (Guaifenesin Er 600 Mg Tab) 600 mg PO BID [facility] Last Admin: 02/22/23 17:19 Dose: 600 mg Documented By: GUANAKITO Sodium Chloride (Normal Saline 0.9%) 1,000 mls @ 100 mls/hr IV CONT [facility] Stop: 02/23/23 03:14 Last Admin: 02/22/23 17:19 Dose: 100 mls/hr Documented By: GUANAKITO Insulin Human Lispro (Insulin Lispro 100 Unit/Ml 3ml Vial) 0 unit SUBCUT ACHS [facility]; Protocol Last Admin: 02/22/23 17:18 Dose: Not Given Documented By: GUANAKITO Labetalol HCl (Labetalol 100 Mg Tablet) 300 mg PO BID [facility] Melatonin (Melatonin 3 Mg Tablet) 6 mg PO BEDTIME PRN PRN Reason: Insomnia Naloxone HCl (Naloxone 0.4 Mg/Ml Vial) 0.2 mg IV Q2MIN PRN PRN Reason: Opiate Reversal Nystatin (Nystatin Powder 15gm) 1 applic TOP BID PRN PRN Reason: Rash Ondansetron HCl (Ondansetron 4 Mg/2 Ml Inj) 4 mg IV NOW PRN PRN Reason: Nausea And Vomiting Ondansetron HCl (Ondansetron 4 Mg Odt) 4 mg SL NOW PRN PRN Reason: Nausea And Vomiting Ondansetron HCl (Ondansetron 4 Mg/2 Ml Inj) 4 mg IV Q4HR JONNIE Last Admin: 02/22/23 17:19 Dose: Not Given Documented By: GUANAKITO Polyethylene Glycol (Polyethylene Glycol 3350 17 Gm Powd.Pack) 17 gm PO DAILY PRN PRN Reason: Constipation Sennosides (Sennosides 8.6 Mg Tablet) 8.6 mg PO BID PRN PRN Reason: Constipation Discontinued Medications Acetaminophen (Acetaminophen 325 Mg Tablet) 975 mg PO NOW ONE Stop: 02/22/23 12:19 Last Admin: 02/22/23 12:25 Dose: 975 mg Documented By: BEVERLEY Sodium Chloride (Normal Saline 0.9%) 1,000 mls @ 1,000 mls/hr IV BOLUS ONE Stop: 02/22/23 13:21 Last Infusion: 02/22/23 13:36 Dose: 0 mls/hr Documented By: Admin: 02/22/23 12:26 Dose: 1,000 mls/hr Documented By: BEVERLEY Vital Signs Vital signs: Vital Signs - 8 hr 02/22/23 12:09 02/22/23 12:13 02/22/23 12:14 Temperature 102 F H Pulse Rate 130 H Respiratory Rate 18 Blood Pressure 180/86 H 181/86 H Pulse Oximetry 99 91 Oxygen Delivery Method Room Air Room Air 02/22/23 12:14 02/22/23 12:30 02/22/23 12:31 Temperature Pulse Rate 127 H 126 H Respiratory Rate 24 Blood Pressure 185/82 H Pulse Oximetry 99 93 Oxygen Delivery Method Room Air Room Air 02/22/23 12:31 02/22/23 13:00 02/22/23 13:00 Temperature Pulse Rate 124 H 120 H Respiratory Rate 25 H 22 Blood Pressure 159/72 H Pulse Oximetry 92 92 Oxygen Delivery Method Room Air 02/22/23 13:19 02/22/23 13:19 02/22/23 13:42 Temperature 99.9 F H Pulse Rate 116 H Respiratory Rate 22 Blood Pressure 148/67 H Pulse Oximetry 92 Oxygen Delivery Method Room Air 02/22/23 13:35 02/22/23 14:00 02/22/23 14:01 Temperature Pulse Rate 120 H 115 H Respiratory Rate 26 H Blood Pressure 146/67 H Pulse Oximetry 96 91 Oxygen Delivery Method 02/22/23 14:01 Temperature Pulse Rate 113 H Respiratory Rate 23 Blood Pressure Pulse Oximetry 91 Oxygen Delivery Method MDM - URI/Sore Throat Lab Data 02/22/23 12:10 02/22/23 12:10 Labs: Lab Results 02/22/23 02/22/23 02/22/23 Range/Units 12:10 12:10 12:10 WBC 14.8 H (4.5-11.0) X10^3/uL RBC 4.90 (4.0-5.2) X10^6/uL Hgb 13.4 (12.0-16.0) g/dL Hct 40.3 (36-46) % MCV 82.3 (80-100) fL MCH 27.4 (26-34) PG MCHC 33.3 (30-36) % RDW 14.5 (11.6-14.8) % Plt Count 260 (150-400) X10^3/uL Neut % (Auto) 82.2 H (50-75) % Lymph % (Auto) 5.1 L (25-40) % [place] % (Auto) 11.7 (3-14) % Eos % (Auto) 0.3 L (2-4) % Baso % (Auto) 0.7 (0-2) % Neut # (Auto) 58719 H (8116-4352) /uL Lymph # (Auto) 800 L (9362-6369) /uL [place] # (Auto) 1700 H (0-900) /uL Eos # (Auto) 0 (0-450) /uL Baso # (Auto) 100 (0-100) /uL PT 13.5 H (10.1-12.7) SECONDS INR 1.2 (0.9-1.3) APTT 29 (26-36) SECONDS D-Dimer (<500) ng/ml Sodium 136 L (137-145) mmol/L Potassium 3.6 (3.4-5.1) mmol/L Chloride 99 (98-107) mmol/L Carbon Dioxide 29 (22-32) mmol/L BUN 16 (7-17) mg/dL Creatinine 1.59 H (0.52-1.04) mg/dL Estimated GFR 35 L (>60) mL/min BUN/Creatinine Ratio 10.1 (6-22) Glucose 137 H (80-110) mg/dL Lactate (0.7-2.1) mmol/L Calcium 9.0 (8.4-10.2) mg/dL Magnesium (1.6-2.3) mg/dL Total Bilirubin 1.3 (0.2-1.3) mg/dL AST 31 (14-36) IU/L ALT 22 (<35) IU/L Alkaline Phosphatase 94 (38-126) U/L Total Protein 7.4 (6.3-8.2) g/dL Albumin 4.3 (3.5-5.0) g/dL Globulin 3.1 (1.7-4.1) g/dL Albumin/Globulin Ratio 1.4 (1.0-2.8) Lipase 70 (23-300) U/L Procalcitonin 0.11 (<0.5) ng/mL SARS-CoV-2 (PCR) (Negative) 02/22/23 02/22/23 02/22/23 Range/Units 12:10 12:10 12:10 WBC (4.5-11.0) X10^3/uL RBC (4.0-5.2) X10^6/uL Hgb (12.0-16.0) g/dL Hct (36-46) % MCV (80-100) fL MCH (26-34) PG MCHC (30-36) % RDW (11.6-14.8) % Plt Count (150-400) X10^3/uL Neut % (Auto) (50-75) % Lymph % (Auto) (25-40) % [place] % (Auto) (3-14) % Eos % (Auto) (2-4) % Baso % (Auto) (0-2) % Neut # (Auto) (6583-9919) /uL Lymph # (Auto) (6987-9254) /uL [place] # (Auto) (0-900) /uL Eos # (Auto) (0-450) /uL Baso # (Auto) (0-100) /uL PT (10.1-12.7) SECONDS INR (0.9-1.3) APTT (26-36) SECONDS D-Dimer 1024 H (<500) ng/ml Sodium (137-145) mmol/L Potassium (3.4-5.1) mmol/L Chloride (98-107) mmol/L Carbon Dioxide (22-32) mmol/L BUN (7-17) mg/dL Creatinine (0.52-1.04) mg/dL Estimated GFR (>60) mL/min BUN/Creatinine Ratio (6-22) Glucose (80-110) mg/dL Lactate 1.4 (0.7-2.1) mmol/L Calcium (8.4-10.2) mg/dL Magnesium 1.8 (1.6-2.3) mg/dL Total Bilirubin (0.2-1.3) mg/dL AST (14-36) IU/L ALT (<35) IU/L Alkaline Phosphatase (38-126) U/L Total Protein (6.3-8.2) g/dL Albumin (3.5-5.0) g/dL Globulin (1.7-4.1) g/dL Albumin/Globulin Ratio (1.0-2.8) Lipase (23-300) U/L Procalcitonin (<0.5) ng/mL SARS-CoV-2 (PCR) (Negative) 02/22/23 Range/Units 12:16 WBC (4.5-11.0) X10^3/uL RBC (4.0-5.2) X10^6/uL Hgb (12.0-16.0) g/dL Hct (36-46) % MCV (80-100) fL MCH (26-34) PG MCHC (30-36) % RDW (11.6-14.8) % Plt Count (150-400) X10^3/uL Neut % (Auto) (50-75) % Lymph % (Auto) (25-40) % [place] % (Auto) (3-14) % Eos % (Auto) (2-4) % Baso % (Auto) (0-2) % Neut # (Auto) (2708-8475) /uL Lymph # (Auto) (5573-0765) /uL [place] # (Auto) (0-900) /uL Eos # (Auto) (0-450) /uL Baso # (Auto) (0-100) /uL PT (10.1-12.7) SECONDS INR (0.9-1.3) APTT (26-36) SECONDS D-Dimer (<500) ng/ml Sodium (137-145) mmol/L Potassium (3.4-5.1) mmol/L Chloride (98-107) mmol/L Carbon Dioxide (22-32) mmol/L BUN (7-17) mg/dL Creatinine (0.52-1.04) mg/dL Estimated GFR (>60) mL/min BUN/Creatinine Ratio (6-22) Glucose (80-110) mg/dL Lactate (0.7-2.1) mmol/L Calcium (8.4-10.2) mg/dL Magnesium (1.6-2.3) mg/dL Total Bilirubin (0.2-1.3) mg/dL AST (14-36) IU/L ALT (<35) IU/L Alkaline Phosphatase (38-126) U/L Total Protein (6.3-8.2) g/dL Albumin (3.5-5.0) g/dL Globulin (1.7-4.1) g/dL Albumin/Globulin Ratio (1.0-2.8) Lipase (23-300) U/L Procalcitonin (<0.5) ng/mL SARS-CoV-2 (PCR) Positive H (Negative) Point of Care Testing Glucose POC 100 Urine Dip Bedside Urine Glucose Negative Bedside Urine Bilirubin - Negative Bedside Urine Ketone - Negative Urine Specific [place] 1.010 Bedside Urine Occult Blood - Negative Bedside Urine pH 7.0 Bedside Urine Protein - Negative Bedside Urine Urobilinogen - Negative Bedside Urine Nitrite - Negative Bedside Urine Leukocytes - Negative Esterase Imaging Data Chest x-ray: Radiologist's Impression: ? INDICATIONS:? suspected sepsis ? TECHNIQUE:? One view of the chest was acquired.? ? COMPARISON:? [facility], CR, XR CHEST 1V, 01/26/2022, 13:24. ? FINDINGS:? ? Surgical changes and devices:? None.? ? Lungs and pleura:? Lungs are clear.? No pleural effusions or pneumothorax.? ? Mediastinum:? Mediastinal contours appear normal.? Heart size is normal.? ? Bones and chest wall:? No suspicious bony lesions.? Overlying soft tissues appear unremarkable.? ? IMPRESSION:? No acute cardiopulmonary abnormalities or focal airspace disease. ? Dictated by: Gabe Moss M.D. on 02/22/2023 at 11:50 ?? ECG Data Interpretation: Normal sinus rhythm rate 120 TN interval 158 QRS [address] changes noted lead 3 low voltage MDM Narrative Medical decision making narrative: Patient is 72-year-old female started having symptoms of COVID yesterday diagnosed COVID today. She is obviously fatigued mildly short of breath with O2 90-91% on room air. Not requiring oxygen. She is febrile and tachycardic upon arrival. CT was done for an elevated D-dimer which does not show any pneumonia or pulmonary embolism. She does have leukocytosis 14.8 with a left creatinine 1.[address] Mathew accepts patient. Discharge Plan Departure Patient Disposition: Admitted as Observation Clinical Impression: COVID-19 Admit Date/Time: 02/22/23 14:46 Admit Provider: Jimmie Mathew
--- NOTE | 2023-02-22 13:09 | DI.CT.S_ITS ---
PROCEDURE: CT ANGIO CHEST PE PROTOCOL INDICATIONS: covid TECHNIQUE: After the administration of intravenous contrast, 2 mm thick sections acquired from the pulmonary apices to the posterior costophrenic angles. 3-dimensional maximum intensity projection (MIP) coronal and sagittal reformats were then acquired through the thorax. For radiation dose reduction, the following was used: automated exposure control, adjustment of mA and/or kV according to patient size. COMPARISON: None. FINDINGS: Image quality: There is suboptimal timing of contrast bolus limiting evaluation of the pulmonary arteries. The pulmonary arteries were adequately visualized to level of the proximal segmental pulmonary arteries.. Pulmonary arteries: Pulmonary arteries are normal in size, and demonstrate no intraluminal filling defects to suggest central pulmonary embolism. Lungs and pleura: 6 mm subpleural left posterior lower lobe nodule (164/series 5). A 7 mm anterior right middle lobe nodule (146/series 5). No pleural effusions or pneumothorax. Central and peripheral airways are patent. No acute airspace disease. No septal thickening or nodularity. Mediastinum: Heart size is normal, without pericardial effusion. No mediastinal or hilar adenopathy. Thoracic aorta is normal in caliber and enhancement. Esophagus is normal in caliber. Moderate atherosclerotic calcifications of the coronary arteries. Bones and chest wall: No suspicious bony lesions. Ribs and thoracic spine appear intact throughout. Thyroid gland is unremarkable. No axillary or supraclavicular adenopathy. No acute compression fractures. Multilevel spondylosis. Bilateral breast implants are in place. Capsular calcifications are present. Abdomen: Atrophic left kidney. Small hiatal hernia. Remainder of the visualized upper abdominal solid organs and bowel loops appear unremarkable. IMPRESSION: 1. No acute pulmonary emboli identified. No evidence for acute right-sided heart strain. No acute cardiopulmonary abnormalities. No focal airspace disease. 2. Small pulmonary nodules measuring 6 mm in the left lower lobe and 7 mm in the right middle lobe. Recommend follow-up chest CT in 6 months to document continued stability. 3. Atherosclerotic vascular disease. Other chronic findings as above. Dictated by: Gabe Moss M.D. on 02/22/2023 at 12:54 Approved by: Gabe Moss M.D. on 02/22/2023 at 13:03
--- NOTE | 2023-02-22 13:11 | DI.CT.S_ITS ---
PROCEDURE: CT HEAD/BRAIN WO CON INDICATIONS: fall yesterday hx aneurysm with clip TECHNIQUE: Noncontrast 4.5 mm thick angled axial sections acquired from the foramen magnum to the vertex, with coronal and sagittal reformats. For radiation dose reduction, the following was used: automated exposure control, adjustment of mA and/or kV according to patient size. COMPARISON: None. FINDINGS: Image quality: Excellent. CSF spaces: Basal cisterns are patent. No extra-axial fluid collections. The ventricles are symmetric in size and shape. Brain: No intracranial bleeds or masses. There is cerebral volume loss for age, with resultant ventricular and sulcal prominence. There are periventricular and deep white matter chronic small vessel ischemic changes. There is intracranial internal carotid artery atherosclerosis. There are changes from prior left aneurysm repair at the region of the left cavernous sinus. Skull and face: Calvarium and visualized facial bones appear intact, without suspicious lesions. Postoperative changes from prior left craniotomy. Sinuses: Visualized sinuses and mastoids are clear. IMPRESSION: CT head without acute intracranial abnormalities. Dictated by: Gabe Moss M.D. on 02/22/2023 at 12:52 Approved by: Gabe Moss M.D. on 02/22/2023 at 12:53
--- NOTE | 2023-02-22 15:12 | P.HP_ITS ---
History of Present Illness History of Present Illness Date Patient Seen: 02/22/23 Time Patient Seen: 15:30 Chief complaint: COVID + Narrative: Meliza Ha is a 72-year-old female with past medical history of CKD, CVA, CAD, hypertension, hyperlipidemia, Kulkarni's esophagus, prediabetes, hearing loss and headaches who presents with generalized weakness and found to have COVID. Patient says her daughter came back from [place] recently with flu-like symptoms and tested positive for COVID. The patient then began feeling poorly yesterday to the point where she was so weak she couldn't get out of bed. She fell at home landing on her butt, back and hitting her head. She has a dry cough but denies SOB, diarrhea or sore throat. She is fully vaccinated and had COVID once a year ago. She denies CP. In the ED patient had an elevated dimer so CTA done which showed no PNA or PE. CT head negative. WBC 14. CXR negative for infiltrates. She was very weak with road test in the ED so admitted obs for PT/OT eval and monitoring. [facility] Medical History Kulkarni's esophagus determined by biopsy Coronary atherosclerosis CVA (cerebral vascular accident) ETD (eustachian tube dysfunction) Hypertension 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 Family History Father Hypertension Mother Gallstones Abdominal aortic aneurysm Sister Hypertension Coronary artery disease Brother Hypertension Coronary artery disease Social History household members: spouse and children Smoking Status: Former smoker alcohol intake: never Meds Home Medications and Allergies Home Medications Medication Instructions Recorded Confirmed Type amlodipine 10 mg tablet 10 mg PO DAILY 10/21/18 02/22/23 History labetalol 300 mg tablet 300 mg PO BID 10/21/18 03/06/22 History Excedrin Tension Headache 0.5 tab PO BID PRN Headache 12/31/18 03/06/22 History atorvastatin 40 mg tablet (Lipitor) 40 mg PO HS #30 tabs 04/26/21 02/22/23 Rx clotrimazole-betamethasone 1 1 applic topical BID PRN rash #45 07/03/21 03/06/22 Rx %-0.05 % topical cream grams nystatin 100,000 unit/gram topical 1 applic topical BID PRN Rash #30 07/03/21 03/06/22 Rx powder grams albuterol sulfate 90 mcg/actuation 2 puff inhalation Q4-6H PRN 08/08/21 03/06/22 Rx aerosol inhaler shortness of breath or wheezing #8.5 grams furosemide 20 mg tablet 20 mg PO DAILY 02/05/22 02/22/23 History Allergies Allergy/AdvReac Type Severity Reaction Status Date / Time morphine Allergy Intermediate ITCHING Verified 02/22/23 12:18 hydrocodone Allergy Mild ITCH Verified 02/22/23 12:18 lisinopril Allergy Mild BACK Verified 02/22/23 12:18 PAIN/HAND NUMBNESS Review of Systems Review of Systems Narrative: All other systems reviewed with the patient and are negative unless otherwise stated. Exam Vital Signs (past 8 hours): - 02/22/23 12:09 02/22/23 12:13 02/22/23 12:14 Temperature 102 F H Pulse Rate 130 H Respiratory Rate 18 Blood Pressure 180/86 H 181/86 H Pulse Oximetry 99 91 Oxygen Delivery Method Room Air Room Air 02/22/23 12:14 02/22/23 12:30 02/22/23 12:31 Temperature Pulse Rate 127 H 126 H Respiratory Rate 24 Blood Pressure 185/82 H Pulse Oximetry 99 93 Oxygen Delivery Method Room Air Room Air 02/22/23 12:31 02/22/23 13:00 02/22/23 13:00 Temperature Pulse Rate 124 H 120 H Respiratory Rate 25 H 22 Blood Pressure 159/72 H Pulse Oximetry 92 92 Oxygen Delivery Method Room Air 02/22/23 13:19 02/22/23 13:19 02/22/23 13:42 Temperature 99.9 F H Pulse Rate 116 H Respiratory Rate 22 Blood Pressure 148/67 H Pulse Oximetry 92 Oxygen Delivery Method Room Air 02/22/23 13:35 02/22/23 14:00 02/22/23 14:01 Temperature Pulse Rate 120 H 115 H Respiratory Rate 26 H Blood Pressure 146/67 H Pulse Oximetry 96 91 Oxygen Delivery Method 02/22/23 14:01 Temperature Pulse Rate 113 H Respiratory Rate 23 Blood Pressure Pulse Oximetry 91 Oxygen Delivery Method Oxygen Delivery Method Room Air Narrative Exam Narrative: GEN: no acute distress, appears fatigued, hard of hearing HEENT: dry mucous membranes, PERRL NECK: trachea midline, no JVD CV: regular rate and rhythm, no murmurs PULM: clear bilaterally ABD: soft, nontender, nondistended, no organomegaly EXT: warm and well perfused with no edema NEURO: awake, alert, oriented, no focal deficits Objective Labs 02/22/23 12:10 02/22/23 12:10 Labs: Laboratory Results - last 24 hr 02/22/23 02/22/23 02/22/23 12:10 12:10 12:10 WBC 14.8 H RBC 4.90 Hgb 13.4 Hct 40.3 MCV 82.3 MCH 27.4 MCHC 33.3 RDW 14.5 Plt Count 260 Neut % (Auto) 82.2 H Lymph % (Auto) 5.1 L [place] % (Auto) 11.7 Eos % (Auto) 0.3 L Baso % (Auto) 0.7 Neut # (Auto) 97573 H Lymph # (Auto) 800 L [place] # (Auto) 1700 H Eos # (Auto) 0 Baso # (Auto) 100 PT 13.5 H INR 1.2 APTT 29 D-Dimer Sodium 136 L Potassium 3.6 Chloride 99 Carbon Dioxide 29 BUN 16 Creatinine 1.59 H Estimated GFR 35 L BUN/Creatinine Ratio 10.1 Glucose 137 H Lactate Calcium 9.0 Total Bilirubin 1.3 AST 31 ALT 22 Alkaline Phosphatase 94 Total Protein 7.4 Albumin 4.3 Globulin 3.1 Albumin/Globulin Ratio 1.4 Lipase 70 Procalcitonin 0.11 SARS-CoV-2 (PCR) 02/22/23 02/22/23 02/22/23 12:10 12:10 12:16 WBC RBC Hgb Hct MCV MCH MCHC RDW Plt Count Neut % (Auto) Lymph % (Auto) [place] % (Auto) Eos % (Auto) Baso % (Auto) Neut # (Auto) Lymph # (Auto) [place] # (Auto) Eos # (Auto) Baso # (Auto) PT INR APTT D-Dimer 1024 H Sodium Potassium Chloride Carbon Dioxide BUN Creatinine Estimated GFR BUN/Creatinine Ratio Glucose Lactate 1.4 Calcium Total Bilirubin AST ALT Alkaline Phosphatase Total Protein Albumin Globulin Albumin/Globulin Ratio Lipase Procalcitonin SARS-CoV-2 (PCR) Positive H Assessment & Plan Assessment & Plan narrative: # generalized weakness/falls secondary to COVID -O2 sats borderline low at 91%, however not on O2 so will not treat -PT/OT eval -q.6 hours pulse ox -mucinex and tessalon perles PRN # questionable sepsis -WBC 14, fever of 102 F, tachycardic to 130 -chest x-ray normal -blood cultures pending -check UA -IVF # CKD -creatinine 1.59 and baseline 1.3-1.5 -monitor and avoid nephrotoxic agents # prediabetes -last A1c 6.3% in November 2022 -recheck A1c -sliding scale insulin # hypertension -continue home labetalol and amlodipine # hyperlipidemia -continue home statin Code status is full code. DVT prophylaxis with Lovenox. Proxy is Ernesto. I have reviewed home meds and used all available resources to reconcile the home meds. This patient will be admitted as observation and will require less than 2 midnights of hospital time to treat generalized weakness due to COVID.
[2023-02-22 15:22] LABS: Magnesium 1.8 mg/dL (1.6-2.3)
[2023-02-22] MEDS: guaiFENesin ER 600 MG TAB PO ×2 (17:19→21:11)
[2023-02-22] MEDS: SODIUM CHLORIDE 0.9% 1,000 ML 100 ML IV (17:19)
[2023-02-22] MEDS: BENZONATATE 100 MG CAPSULE PO (17:19)
[2023-02-22 17:34] LABS: Appearance Urine UA CLEAR; Bilirubin Urine UA NEGATIVE (NEGATIVE); Color Urine UA YELLOW; Glucose Urine UA NEGATIVE (Negative); Ketones Urine UA NEGATIVE (NEGATIVE); Leukocyte Esterase Urine UA NEGATIVE (NEGATIVE); Nitrite Urine UA NEGATIVE (Negative); Occult Blood Urine UA NEGATIVE (Negative); Protein Urine UA NEGATIVE (Negative); Specific Gravity Urine UA <=1.005 (1.000-1.035); Urobilinogen Urine UA 0.2 E.U./dL (0.2)
[2023-02-22 17:42] LABS: Bacteria Urine None Seen; RBC Urine None Seen (0-5/HPF); WBC Urine None Seen (0-5/HPF)
[2023-02-22 17:43] LABS: Culture Indicated Urine Cult Not Indicated; Renal Epithelial Cells Urine 0-1/HPF (0-1/HPF); Squamous Epithelial Cell Urine 0-1 /HPF (0-5/HPF); Transitional Epi Cells Urine 0-1/HPF (0-5/HPF)
[2023-02-22] MEDS: ATORVASTATIN 20 MG TABLET 40 MG PO (21:10)
[2023-02-22] MEDS: LABETALOL 100 MG TABLET 300 MG PO (21:10)
[2023-02-22] MEDS: ACETAMINOPHEN 325 MG TABLET 650 MG PO (21:11)
[2023-02-23 04:27] VITALS: TEMP 36.4
[2023-02-23 05:00] LABS: Add Manual Diff / Slide Review NO; Basophils Absolute Auto 0 /uL (0-100); Basophils Percent Auto 0.5 % (0-2); Eosinophils Absolute Auto 0 /uL (0-450); Eosinophils Percent Auto 0.2 % (2-4); Hematocrit 35.4 % (36-46); Lymphocytes Absolute Auto 800 /uL (1100-4500); Lymphocytes Percent Auto 10.4 % (25-40); Mean Corpuscular Volume 82.3 fL (80-100); Monocytes Absolute Auto 1300 /uL (0-900); Monocytes Percent Auto 16.4 % (3-14); Neutrophils Absolute Auto 5700 /uL (1500-7000); Neutrophils Percent Auto 72.5 % (50-75); Platelet Count 196 X10^3/uL (150-400); Red Cell Distribution Width 14.6 % (11.6-14.8); White Blood Cell Count 7.9 X10^3/uL (4.5-11.0)
[2023-02-23 05:09] LABS: BUN Creatinine Ratio 10.9 (6-22); Blood Urea Nitrogen 14 mg/dL (7-17); Calcium 7.6 mg/dL (8.4-10.2); Carbon Dioxide 28 mmol/L (22-32); Chloride 104 mmol/L (98-107); Estimated Glomerular Filt Rate 44 mL/min (>60); Glucose 90 mg/dL (80-110); HEMOLYSIS < 15 (0-50); Potassium 3.2 mmol/L (3.4-5.1); Sodium 137 mmol/L (137-145)
--- NOTE | 2023-02-23 05:49 | PC.NURSE ---
0515- Patient potassium level 3.2. Reported to Dr. Maxwell orders recieved. Will monitor.
[2023-02-23 07:59] VITALS: TEMP 37.8
[2023-02-23] MEDS: LABETALOL 100 MG TABLET 300 MG PO (07:59)
[2023-02-23] MEDS: ACETAMINOPHEN 325 MG TABLET 650 MG PO (07:59)
[2023-02-23] MEDS: POTASSIUM CHLORIDE 20 MEQ TAB PO (07:59)
[2023-02-23] MEDS: guaiFENesin ER 600 MG TAB PO (07:59)
[2023-02-23] MEDS: AMLODIPINE 5 MG TABLET 10 MG PO (08:01)
[2023-02-23] MEDS: ENOXAPARIN 40 MG/0.4 ML SYRINGE SUBCUT (08:01)
[2023-02-23 09:32] VITALS: BP 168/77; PULSE 113; RESP 17; TEMP 37.5; O2SAT 94
--- NOTE | 2023-02-23 10:51 | PM.DS.1 ---
History of Present Illness History of Present Illness Date Patient Seen: 02/23/23 Time Patient Seen: 10:52 Chief complaint: COVID + Narrative: Per admitting provider, Meliza Ha is a 72-year-old female with past medical history of CKD, CVA, CAD, hypertension, hyperlipidemia, Kulkarni's esophagus, prediabetes, hearing loss and headaches who presents with generalized weakness and found to have COVID. Patient says her daughter came back from [place] recently with flu-like symptoms and tested positive for COVID. The patient then began feeling poorly yesterday to the point where she was so weak she couldn't get out of bed. She fell at home landing on her butt, back and hitting her head. She has a dry cough but denies SOB, diarrhea or sore throat. She is fully vaccinated and had COVID once a year ago. She denies CP. In the ED patient had an elevated dimer so CTA done which showed no PNA or PE. CT head negative. WBC 14. CXR negative for infiltrates. She was very weak with road test in the ED so admitted obs for PT/OT eval and monitoring. Discharge Providers Provider Date of admission: 02/22/23 14:46 Discharge Date: 02/23/23 Primary care physician: Vahid tOt MD Consults: 02/22/23 15:05 Consult to Occupational Therapy Evaluate & Treat Comment: Physician Instructions: Evaluate and treat Consult to Physical Therapy Evaluate & Treat Comment: Physician Instructions: Evaluate and Treat Discharge provider: Edgar Edmonds DO Summary Hospital Course Discharge Diagnosis: # generalized weakness/falls secondary to COVID #sepsis ruled out # CKD vs resolved ELISEO # prediabetes # hypertension # hyperlipidemia Hospital Course: This is a 72 F with PMH of CKD, pre-DM, HTN, HLD who was admitted with weakness secondary to COVID 19 infection. She felt improved the following day and did not wish to work with physical therapy given her improvement. Given symptomatic improvement, with improving labs (leukocytosis resolved, creatinine improved) and no further benefit to admission to the hospital, she was discharged home. Creatinine improved from 159 to 1.29, her baseline has been as low as 1.0 in the past year. We did discuss the risks and benefits of paxlovid given recent symptom onset reported, for which the patient wished to have the medication prescribed. She was prescribed renal dosing to complete therapy at home and recommended to stop her statin therapy while on Paxlovid. No [place] [facility] changes to her home medications are recommended at the time of discharge. Time Spent with Patient Time spent: Greater than 30 minutes Exam Vital Signs (past 8 hours): - 02/23/23 04:27 02/23/23 07:59 02/23/23 07:00 Temperature 97.6 F 100.0 F H Pulse Rate Respiratory Rate Blood Pressure Pulse Oximetry Oxygen Delivery Method Room Air Oxygen Flow Rate 02/23/23 09:32 Temperature 99.5 F Pulse Rate 113 H Respiratory Rate 17 Blood Pressure 168/77 H Pulse Oximetry 94 Oxygen Delivery Method Oxygen Flow Rate 2 Oxygen Delivery Method Room Air Oxygen Flow Rate 2 Narrative Exam Narrative: # generalized weakness/falls secondary to COVID -O2 sats borderline low at 91%, however not on O2 so will not treat -PT/OT eval -q.6 hours pulse ox -mucinex and tessalon perles PRN # questionable sepsis -WBC 14, fever of 102 F, tachycardic to 130 -chest x-ray normal -blood cultures pending -check UA -IVF # CKD -creatinine 1.59 and baseline 1.3-1.5 -monitor and avoid nephrotoxic agents # prediabetes -last A1c 6.3% in November 2022 -recheck A1c -sliding scale insulin # hypertension -continue home labetalol and amlodipine # hyperlipidemia Objective Labs 02/23/23 04:20 02/23/23 04:20 Labs: Laboratory Results - last 24 hr 02/22/23 02/22/23 02/22/23 12:10 12:10 12:10 WBC 14.8 H RBC 4.90 Hgb 13.4 Hct 40.3 MCV 82.3 MCH 27.4 MCHC 33.3 RDW 14.5 Plt Count 260 Neut % (Auto) 82.2 H Lymph % (Auto) 5.1 L [place] % (Auto) 11.7 Eos % (Auto) 0.3 L Baso % (Auto) 0.7 Neut # (Auto) 94213 H Lymph # (Auto) 800 L [place] # (Auto) 1700 H Eos # (Auto) 0 Baso # (Auto) 100 PT 13.5 H INR 1.2 APTT 29 D-Dimer Sodium 136 L Potassium 3.6 Chloride 99 Carbon Dioxide 29 BUN 16 Creatinine 1.59 H Estimated GFR 35 L BUN/Creatinine Ratio 10.1 Glucose 137 H Lactate Calcium 9.0 Magnesium Total Bilirubin 1.3 AST 31 ALT 22 Alkaline Phosphatase 94 Total Protein 7.4 Albumin 4.3 Globulin 3.1 Albumin/Globulin Ratio 1.4 Lipase 70 Procalcitonin 0.11 Urine Color Urine Appearance Urine pH Ur Specific [place] Urine Protein Urine Glucose (UA) Urine Ketones Urine Occult Blood Urine Nitrate Urine Bilirubin Urine Urobilinogen Ur Leukocyte Esterase Urine RBC Urine WBC Ur Squamous Epith Cells Ur Transition Epith Cell Ur Renal Epithelial Cell Urine Bacteria Ur Culture Indicated? SARS-CoV-2 (PCR) 02/22/23 02/22/23 02/22/23 12:10 12:10 12:10 WBC RBC Hgb Hct MCV MCH MCHC RDW Plt Count Neut % (Auto) Lymph % (Auto) [place] % (Auto) Eos % (Auto) Baso % (Auto) Neut # (Auto) Lymph # (Auto) [place] # (Auto) Eos # (Auto) Baso # (Auto) PT INR APTT D-Dimer 1024 H Sodium Potassium Chloride Carbon Dioxide BUN Creatinine Estimated GFR BUN/Creatinine Ratio Glucose Lactate 1.4 Calcium Magnesium 1.8 Total Bilirubin AST ALT Alkaline Phosphatase Total Protein Albumin Globulin Albumin/Globulin Ratio Lipase Procalcitonin Urine Color Urine Appearance Urine pH Ur Specific [place] Urine Protein Urine Glucose (UA) Urine Ketones Urine Occult Blood Urine Nitrate Urine Bilirubin Urine Urobilinogen Ur Leukocyte Esterase Urine RBC Urine WBC Ur Squamous Epith Cells Ur Transition Epith Cell Ur Renal Epithelial Cell Urine Bacteria Ur Culture Indicated? SARS-CoV-2 (PCR) 02/22/23 02/22/23 02/23/23 12:16 17:00 04:20 WBC 7.9 RBC 4.30 Hgb 12.0 Hct 35.4 L MCV 82.3 MCH 28.0 MCHC 34.0 RDW 14.6 Plt Count 196 Neut % (Auto) 72.5 Lymph % (Auto) 10.4 L [place] % (Auto) 16.4 H Eos % (Auto) 0.2 L Baso % (Auto) 0.5 Neut # (Auto) 5700 Lymph # (Auto) 800 L [place] # (Auto) 1300 H Eos # (Auto) 0 Baso # (Auto) 0 PT INR APTT D-Dimer Sodium Potassium Chloride Carbon Dioxide BUN Creatinine Estimated GFR BUN/Creatinine Ratio Glucose Lactate Calcium Magnesium Total Bilirubin AST ALT Alkaline Phosphatase Total Protein Albumin Globulin Albumin/Globulin Ratio Lipase Procalcitonin Urine Color Yellow Urine Appearance Clear Urine pH 6.0 Ur Specific [place] <=1.005 Urine Protein Negative Urine Glucose (UA) Negative Urine Ketones Negative Urine Occult Blood Negative Urine Nitrate Negative Urine Bilirubin Negative Urine Urobilinogen 0.2 Ur Leukocyte Esterase Negative Urine RBC None seen Urine WBC None seen Ur Squamous Epith Cells 0-1 /hpf Ur Transition Epith Cell 0-1/hpf Ur Renal Epithelial Cell 0-1/hpf Urine Bacteria None seen Ur Culture Indicated? Cult not indicated SARS-CoV-2 (PCR) Positive H 02/23/23 04:20 WBC RBC Hgb Hct MCV MCH MCHC RDW Plt Count Neut % (Auto) Lymph % (Auto) [place] % (Auto) Eos % (Auto) Baso % (Auto) Neut # (Auto) Lymph # (Auto) [place] # (Auto) Eos # (Auto) Baso # (Auto) PT INR APTT D-Dimer Sodium 137 Potassium 3.2 L Chloride 104 Carbon Dioxide 28 BUN 14 Creatinine 1.29 H Estimated GFR 44 L BUN/Creatinine Ratio 10.9 Glucose 90 Lactate Calcium 7.6 L Magnesium Total Bilirubin AST ALT Alkaline Phosphatase Total Protein Albumin Globulin Albumin/Globulin Ratio Lipase Procalcitonin Urine Color Urine Appearance Urine pH Ur Specific [place] Urine Protein Urine Glucose (UA) Urine Ketones Urine Occult Blood Urine Nitrate Urine Bilirubin Urine Urobilinogen Ur Leukocyte Esterase Urine RBC Urine WBC Ur Squamous Epith Cells Ur Transition Epith Cell Ur Renal Epithelial Cell Urine Bacteria Ur Culture Indicated? SARS-CoV-2 (PCR) [facility] Medical History Kulkarni's esophagus determined by biopsy Coronary atherosclerosis CVA (cerebral vascular accident) ETD (eustachian tube dysfunction) Hypertension 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 Family History Father Hypertension Mother Gallstones Abdominal aortic aneurysm Sister Hypertension Coronary artery disease Brother Hypertension Coronary artery disease Social History household members: spouse and children Smoking Status: Former smoker alcohol intake: never Discharge Plan Discharge Plan Patient Disposition: Home Provider Discharge Comment: You were admitted to the hospital with weakness and COVID infection. You felt improved. Paxlovid was prescribed, stop taking atorvastatin while taking this antiviral medication. Please note with your kidney disease, you are taking a modified amount of medicine based on your renal function. Discharge orders & Medications Prescriptions: New Paxlovid 150-100 mg tablets,dose pack See Rx Instructions .ROUTE .COMPLEX Qty: 20 0RF Rx Instructions: orally per package directions, renal dosing 150/100 Continued amlodipine 10 mg tablet 10 mg PO DAILY labetalol 300 mg tablet 300 mg PO BID nystatin 100,000 unit/gram powder 1 applic TOP BID PRN (Reason: Rash) Qty: 30 2RF furosemide 20 mg tablet 20 mg PO DAILY Excedrin Tension Headache 0.5 tab PO BID PRN (Reason: Headache) Discontinued atorvastatin [Lipitor] 40 mg tablet 40 mg PO HS Qty: 30 0RF Rx Instructions: PT NEEDS TO BE SEEN BEFORE NEXT FILL 01/29/21 + 04/26/21 Follow up/Referrals: Vahid Ott MD [Primary Care Provider] - Diet/Activity/Treatments Diet: Diet as Tolerated Activity: As tolerated, no restrictions. Visit Report/Discharge Packet Stand Alone Forms: Patient Portal/API, Stroke Signs & Symptoms Discharge Data Primary Care Provider: Vahid Ott Attending Provider: Jimmie Mathew Admit Date/Time: 02/22/23 14:46 Discharges patient from system. Discharge Date/Time: 02/23/23 11:40 Quality VTE Deep Vein Thrombosis/Pulmonary Embolism Present on Admission: No
--- NOTE | 2023-02-23 10:53 | CM.DANOTE ---
DCP: Case received, EMR reviewed. Did not enter room, due to patient having COVID, but was able to speak to patient from her doorway. Introduced self and role. Was able to obtain information regarding patient's baseline activity level, as well as her current living situation. DCP assessment completed with information currently available. Patient is a 72 year old female who admitted yesterday afternoon to the care of the hospitalist team. PCP: Dr. Ott (uncertain which provider is taking over). Payer: Medicare/Commercial Insurance. Patient came to the hospital via ambulance secondary to weakness, difficulty breathing. Patient holds current diagnosis of COVID. Notes indicate that she let her dog out, and her dog knocked her over. Patient has history of CKD, CVA, CAD. Met patient by her doorway. Confirmed that she resides with family. She has declined to work with [employer], and has declined home health services. Brenna, UR nurse, had called patient's resident, spoke to , regarding DAILY form, and ended up talking to Evelyn, patient's daughter, She then transferred patient to this DC Commercial Analyst. Confirmed that they are all sick in the household with COVID. Evelyn confirms that she moved in to help care for her parents. Stated that patient is independent with her mobility. She did mention, will be hard for us to take care of her since we're all sick. Let her know that there is no other medical reason to keep her, so will be discharged today. She did have some questions about patient's fever, gave nurse, Nat, her phone number, and she will call her back. P: Patient is discharging home today. Merari Keating RN/Abrasive Grinder Discharge Planning/Care Management CM Discharge Assessment Start: 02/23/23 10:46 Freq: Status: Active Protocol: Document 02/23/23 10:46 (Rec: 02/23/23 10:53 [id number]) Discharge Planning Assessment Assigned Health And Human Performance Professor Merari Keating, Advance Directives? No History Provided By Patient,Medical Record Prior Living Arrangements House Household Members spouse,children Type of transporation used prior to Drives own vehicle admit Independent with ADL's Yes Is patient alert and oriented? Yes Caregiver for Another No Comment Patient lives with family, has home support. Discharge Plan Home Transportation Arrangement Family Referrals Initiated None needed Additional Comment Declined home health. Whiteboard Updated in Patient Room with No name and ext. # of Health And Human Performance Professor Comment Patient has COVID, did not enter room. Review Status In Process Next Review Type Continued Stay Review
[2023-02-24 06:20] LABS: Labcorp Hemoglobin (Hb) A1c 6.2 % (4.8-5.6)
== END 2023-02-23 11:40 | disposition home or self-care (01) ==
LOC: ED 12:54 → AC 14:47
PROVIDERS: Admitting Provider Student in an Organized Health Care Education/Training Program; Emergency Provider Emergency Medicine; Family Provider Student in an Organized Health Care Education/Training Program; PCP Student in an Organized Health Care Education/Training Program; Referring Provider Emergency Medicine; Visit Provider Student in an Organized Health Care Education/Training Program
DX: U07.1 COVID-19 (principal); R41.82 Altered mental status, unspecified; I10 Essential (primary) hypertension; J44.9 Chronic obstructive pulmonary disease, unspecified; E78.5 Hyperlipidemia, unspecified; I25.10 Atherosclerotic heart disease of native coronary artery without angina pectoris; R73.03 Prediabetes; I12.9 Hypertensive chronic kidney disease with stage 1 through stage 4 chronic kidney disease, or unspecified chronic kidney disease; N18.9 Chronic kidney disease, unspecified
CPT/HCPCS: 36415; 70450; 71045; 71275; 80048; 80053; 81001; 81003; 82962; 83036; 83605; 83690; 83735; 84145; 85025; 85379; 85610; 85730; 87040; 87635; 93005; 96360; 96361; 96372; 99285; C9803; G0378; J1650

== ENCOUNTER → 2023-05-28 09:12 | Outpatient (CLI) | payer MEDICARE, OTHER, SELFPAY ==
[2023-02-22 15:06] VITALS: BMI 32.4
[2023-05-28 10:45] LABS: Albumin 4.1 g/dL (3.5-5.0); BUN Creatinine Ratio 15.9 (6-22); Blood Urea Nitrogen 26 mg/dL (7-17); Calcium 9.6 mg/dL (8.4-10.2); Carbon Dioxide 29 mmol/L (22-32); Chloride 102 mmol/L (98-107); Estimated Glomerular Filt Rate 33 mL/min (>60); Glucose 98 mg/dL (80-110); HEMOLYSIS < 15 (0-50); Phosphorous 3.9 mg/dL (2.8-4.1); Potassium 3.9 mmol/L (3.4-5.1); Sodium 138 mmol/L (137-145)
[2023-05-28 11:00] LABS: Vitamin D 25 Hydroxy (D3) 25.4 ng/mL (30.0-100.0)
[2023-05-28 11:37] LABS: Creatinine Urine Random 204.7 mg/dL
[2023-05-28 11:42] LABS: Microalbumi Creatinin Ratio Ur 41.5 ug/mg CR (<30); Microalbumin Urine Random 8.5 mg/dL (0-1.6)
[2023-05-30 07:59] LABS: Parathyroid Hormone Int 85 pg/mL (15-65)
== END ==
PROVIDERS: Family Provider Student in an Organized Health Care Education/Training Program; Referring Provider Internal Medicine Nephrology; Visit Provider Internal Medicine Nephrology
DX: N18.32 Chronic kidney disease, stage 3b (principal)
CPT/HCPCS: 36415; 80048; 82040; 82043; 82306; 82570; 83970; 84100

== ENCOUNTER → 2023-06-16 10:11 | Outpatient (CLI) | payer MEDICARE, OTHER, SELFPAY ==
[2023-02-22 15:06] VITALS: BMI 32.4
--- NOTE | 2023-06-16 10:14 | DI.US.S_ITS ---
PROCEDURE: US CAROTID DOPPLER BI INDICATIONS: FOLLOW UP CAROTID STENOSIS TECHNIQUE: Color and pulse Doppler interrogation was performed of both carotid systems, with image documentation and velocity measurements. COMPARISON: [facility], [place], US CAROTID DOPPLER BI, 07/05/2021, 14:56. FINDINGS: Stenosis calculations are based on SRU (Society of Radiologists in Ultrasound) criteria. Right side: Brachial blood pressure: 136/73 mm Hg. Common carotid artery peak systolic velocity: 74 cm/sec. Internal carotid artery peak systolic velocity: 191 cm/sec. Internal carotid artery end diastolic velocity: 49 cm/sec. External carotid artery peak systolic velocity: 139 cm/sec. ICA/CCA peak systolic ratio: 2.6. Early scale imaging description: Moderate amount of atherosclerotic plaques are noted in distal common carotid artery and origins of internal and external carotid artery. Percent internal carotid artery stenosis: 50-69%. Vertebral artery: Flow is not seen in right vertebral artery. Left side: Brachial blood pressure: Unable to obtain. Common carotid artery peak systolic velocity: 97 cm/sec. Internal carotid artery peak systolic velocity: 90 cm/sec. Internal carotid artery end diastolic velocity: 26 cm/sec. External carotid artery peak systolic velocity: 144 cm/sec. ICA/CCA peak systolic ratio: 0.9. Early scale imaging description: Mild atherosclerotic plaques are noted in distal common carotid artery and origins of internal and external carotid arteries Percent internal carotid artery stenosis: Less than 50%. Vertebral artery: Flow direction is antegrade. IMPRESSION: 1. 50-69% stenosis involving proximal right internal carotid artery. No 2. Less than 50% stenosis involving proximal left internal carotid artery. 3. Flow is not visualized in right vertebral artery concerning for occluded right vertebral artery at its origin. Dictated by: Roberto Larose M.D. on 06/16/2023 at 13:13 Approved by: Roberto Larose M.D. on 06/16/2023 at 13:16
--- NOTE | 2023-06-16 10:14 | DI.RAD.S_ITS ---
Bone Density Report Name: CALI MENA I Age: 73 Sex: Female Ethnicity: White Date of : 1950 Indication: osteopenia; Referring Provider: ONDINA PHELPS D.O. Study: Bone densitometry was performed. Exam Date: June 16, 2023 Accession number: [id number] Bone Density: Region BMD T-score Z-score Classification AP Spine(L1-L4) 0.832 -2.0 0.3 Osteopenia Femoral Neck (Left) 0.558 -2.6 -0.7 Osteoporosis Total Hip (Left) 0.742 -1.6 0.0 Osteopenia Femoral Neck (Right) 0.572 -2.5 -0.6 Osteoporosis Total Hip (Right) 0.739 -1.7 0.0 Osteopenia Total Hip Mean 0.740 -1.7 0.0 Osteopenia World Health Organization criteria for BMD impression classify patients as: Normal (T-score at or above -1.0), Osteopenia (T-score between -1.0 and -2.5), or Osteoporosis (T-score at or below -2.5). 10-year Fracture Risk: FRAX not reported because: Some T-score for Spine Total or Hip Total or Femoral Neck at or below -2.5 Previous Exams: -- Region Exam Age BMD T-score BMD Change BMD Change Date g/cm2 vs Baseline vs Previous -- AP Spine (L1-L4) 06/16/2023 73 0.832 -2.0 -0.008 (-1.0%)# 0.023 (2.9%)# 03/02/2020 70 0.808 -2.2 -0.032 (-3.8%)* -0.032 (-3.8%)* 03/16/2018 68 0.840 -1.9 Total Hip(Left) 06/16/2023 73 0.742 -1.6 -0.022 (-2.8%)# 0.076 (11.5%)# 03/02/2020 70 0.666 -2.3 -0.098 (-12.8%)* -0.098 (-12.8%)* 03/16/2018 68 0.764 -1.5 Total Hip(Right) 06/16/2023 73 0.739 -1.7 -0.017 (-2.2%)# 0.044 (6.4%)# 03/02/2020 70 0.695 -2.0 -0.061 (-8.1%)* -0.061 (-8.1%)* 03/16/2018 68 0.756 -1.5 -- *Denotes significance at 95% confidence level, LSC for AP Spine = 0.022 g/cm2, LSC for Total Hip = 0.027 g/cm2 # Denotes dissimilar scan types or analysis methods Impression: The patient has osteoporosis, based on the Left Femoral Neck T-score. No significant bone loss was observed. Discussion: INCREASED RISK OF FRACTURE. BONE DENSITY IS UNDESIRABLY LOW AT ONE OR MORE SKELETAL SITES, CONSISTENT WITH POSTMENOPAUSAL OSTEOPOROSIS. This patient's lowest T-score meets the World Health Organization's (WHO) criteria for osteoporosis at one or more sites (T-score -2.5 or below). In untreated patients, the risk of osteoporotic fracture increases approximately two-fold for each 1.0 SD decrease in T-score. Low bone density is not the only risk factor for fracture; also consider factors such as patient's age, frailty or poor health, risk of falling, risk of injury, previous osteoporotic fracture, family history of osteoporosis, cigarette smoking, low body weight, etc. Not everyone with low bone mineral density has osteoporosis; osteomalacia and other metabolic bone disorders should also be considered. Patients who have osteoporosis should be evaluated for specific diseases and conditions (secondary causes) that may cause or contribute to bone loss. The [place] Association of Clinical Endocrinologists (AACE) and National Osteoporosis Foundation (NOF) recommend pharmacologic intervention for all postmenopausal women whose T-score is in this range. The patient should follow a healthful lifestyle (good nutrition with adequate calcium and vitamin D, and appropriate weight-bearing exercise). Follow-Up: Consider a repeat BMD and Vertebral Fracture Assessment (VFA) exam in 2 years or sooner if medically necessary, to reassess this patient's status. Reported by: JEANNE DUMONT M.D. on 06/16/2023 11:29:00 AM.
== END ==
PROVIDERS: Family Provider Student in an Organized Health Care Education/Training Program; PCP Family Medicine; Referring Provider Family Medicine; Visit Provider Family Medicine
DX: Z78.0 Asymptomatic menopausal state (principal); I65.23 Occlusion and stenosis of bilateral carotid arteries; M81.0 Age-related osteoporosis without current pathological fracture
CPT/HCPCS: 77080; 93880

== ENCOUNTER → 2023-09-18 12:51 | Outpatient (CLI) | payer MEDICARE, OTHER, SELFPAY ==
[2023-02-22 15:06] VITALS: BMI 32.4
--- NOTE | 2023-09-30 09:43 | DIAB.MNT ---
Initial Diabetes Medical Nutrition Therapy Assessment Name: Meliza Mccann I Date: 09/18/23 Time: 105-220p Dx: Type II Diabetes Tanya presents today with daughter Annabella for initial Dm visit. States she does not feel like she has dm based on recent labs. Has had 6.5% hga1c x 2 in 2018. This is the highest her hgA1c has been. Also managing CKD with GFR of 33L (05/2023) and Cr 1.64H (05/2023). Diet recall indicates frequent eating out (2-3x per week with leftovers). Also endorses prepackaged food consumption at home. High Na intake predicted. Limited knowledge of label reading, carb recs, eating out tips/Na recs. States she does not like to cook anymore. No Dm meds currently. Diet Recall: 930-10a: 1/3c cheerios, milk 2-3p: salad from pizza place with garlic chx wings OR apple with PB OR Cheese puffs x 1.5c 6-7p: Purchased portillo's pie OR spaghetti and meat balls OR eating out (pizza, drive-thru, cheese burger, salad) 8p: frozen strawberry bar x 1-3 Joy: water x 50-70oz unsure how much water to drink. 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 Provided appropriate educational handouts. Discussed the following topics: Completed intake assessment. Discussed barriers to care. Pathophysiology of T2DM and criteria for diagnosing HgA1c, its correlation to blood glucose numbers, and rationale for goal and hx of hga1c Recommended servings for carbohydrates at meals and snacks Heart health nutrition CKD MNT: plant based proteins, Na recs, fluid recs Eating out tips Brainstormed appropriate meal/snack ideas based on food preferences Created SMART goals for patient self-care and success. Goals: Try to keep eating out to 2x per week or less Keep easy to prep lower Na food items in home Aim for 3.5 or more of your water bottle Follow-up: States she would like to f/u prn. Provided contact info and encouraged calling with questions or follow-up needs. She agreed. Evelyn De Los Santos RDN, [facility] Certified Diabetes Care and [employer]of[employer] Helper [employer] P: [phone] Thank you for this referral
== END ==
PROVIDERS: Family Provider Student in an Organized Health Care Education/Training Program; PCP Family Medicine; Referring Provider Family Medicine; Visit Provider Family Medicine
DX: E11.22 Type 2 diabetes mellitus with diabetic chronic kidney disease (principal); Z71.3 Dietary counseling and surveillance; N18.9 Chronic kidney disease, unspecified
CPT/HCPCS: 97802

== ENCOUNTER → 2023-11-18 07:53 | Outpatient (CLI) | payer MEDICARE, OTHER, SELFPAY ==
[2023-02-22 15:06] VITALS: BMI 32.4
[2023-11-18 08:26] LABS: Add Manual Diff / Slide Review NO; Basophils Absolute Auto 100 /uL (0-100); Eosinophils Absolute Auto 400 /uL (0-450); Eosinophils Percent Auto 4.7 % (2-4); Hematocrit 39.4 % (36-46); Lymphocytes Absolute Auto 2000 /uL (1100-4500); Lymphocytes Percent Auto 23.1 % (25-40); Mean Corpuscular HGB Conc 32.9 % (30-36); Mean Corpuscular Hemoglobin 27.5 PG (26-34); Mean Corpuscular Volume 83.7 fL (80-100); Monocytes Absolute Auto 1000 /uL (0-900); Monocytes Percent Auto 11.9 % (3-14); Neutrophils Absolute Auto 5100 /uL (1500-7000); Neutrophils Percent Auto 59.3 % (50-75); Platelet Count 277 X10^3/uL (150-400); Red Blood Cell Count 4.71 X10^6/uL (4.0-5.2); Red Cell Distribution Width 14.7 % (11.6-14.8); White Blood Cell Count 8.5 X10^3/uL (4.5-11.0)
[2023-11-18 09:06] LABS: BUN Creatinine Ratio 12.3 (6-22); Blood Urea Nitrogen 19 mg/dL (7-17); Calcium 9.1 mg/dL (8.4-10.2); Carbon Dioxide 29 mmol/L (22-32); Chloride 106 mmol/L (98-107); Estimated Glomerular Filt Rate 35 mL/min (>60); Glucose 110 mg/dL (80-110); HEMOLYSIS < 15 (0-50); Magnesium 1.9 mg/dL (1.6-2.3); Phosphorous 3.5 mg/dL (2.8-4.1); Potassium 3.5 mmol/L (3.4-5.1); Sodium 140 mmol/L (137-145)
[2023-11-18 09:19] LABS: Cholesterol 113 mg/dL (140-199); HDL Cholesterol 37 mg/dL (40-60); LDL Cholesterol Calculated 56 mg/dL (<100); Triglycerides 102 mg/dL (35-150)
[2023-11-18 09:57] LABS: Hemoglobin A1C% w Est Avg Glu 6.2 % (4.0-6.0)
[2023-11-18 10:07] LABS: Vitamin D 25 Hydroxy (D3) 37.9 ng/mL (30.0-100.0)
[2023-11-18 12:11] LABS: Creatinine Urine Random 74.8 mg/dL
[2023-11-18 12:14] LABS: Microalbumin Urine Random 2.1 mg/dL (0-1.6)
[2023-11-19 16:18] LABS: Parathyroid Hormone Int 111 pg/mL (15-65)
== END ==
PROVIDERS: Family Provider Student in an Organized Health Care Education/Training Program; PCP Family Medicine; Referring Provider Internal Medicine Nephrology; Visit Provider Internal Medicine Nephrology
DX: E11.22 Type 2 diabetes mellitus with diabetic chronic kidney disease (principal); N18.32 Chronic kidney disease, stage 3b; E11.69 Type 2 diabetes mellitus with other specified complication; E78.5 Hyperlipidemia, unspecified
CPT/HCPCS: 36415; 80048; 80061; 82040; 82043; 82306; 82570; 83036; 83735; 83970; 84100; 85025

== ENCOUNTER → 2023-12-07 13:32 | Outpatient (CLI) | payer MEDICARE, OTHER, SELFPAY ==
[2023-02-22 15:06] VITALS: BMI 32.4
--- NOTE | 2023-12-07 13:33 | DI.RAD.S_ITS ---
PROCEDURE: XR WRIST RT MIN 3V INDICATIONS: Right wrist pain TECHNIQUE: 4 views of the wrist were acquired. COMPARISON: None. FINDINGS: Bones: There is a potential fracture seen of the distal navicular bone. No suspicious bony lesions. Generalized degenerative changes are seen including irregular osteophyte formation, which are worst along the radial aspect of the carpus. Soft tissues: Soft-tissue calcifications can be seen distal to the radial styloid. IMPRESSION: Fracture of the distal navicular bone. Please correlate with focal tenderness. Differential diagnosis includes artifact in this patient with degenerative change and irregular osteophyte formation. Please correlate with focal tenderness. If clinically appropriate, please consider a follow-up wrist CT for further evaluation. Dictated by: Lucio López M.D. on 12/07/2023 at 13:21 Approved by: Lucio López M.D. on 12/07/2023 at 13:23
== END ==
PROVIDERS: Family Provider Student in an Organized Health Care Education/Training Program; PCP Family Medicine; Referring Provider Physician Assistant Surgical; Visit Provider Physician Assistant Surgical
DX: S62.014A Nondisplaced fracture of distal pole of navicular [scaphoid] bone of right wrist, initial encounter for closed fracture (principal); M25.531 Pain in right wrist
CPT/HCPCS: 73110

== ENCOUNTER → 2024-05-05 10:17 | Outpatient (CLI) | payer MEDICARE, OTHER, SELFPAY ==
[2023-02-22 15:06] VITALS: BMI 32.4
[2024-05-05 12:22] LABS: Hematocrit 39.6 % (36-46); Hemoglobin 13.3 g/dL (12.0-16.0); Mean Corpuscular HGB Conc 33.5 % (30-36); Mean Corpuscular Hemoglobin 28.1 PG (26-34); Platelet Count 264 X10^3/uL (150-400); Red Blood Cell Count 4.72 X10^6/uL (4.0-5.2); Red Cell Distribution Width 14.1 % (11.6-14.8); White Blood Cell Count 7.7 X10^3/uL (4.5-11.0)
[2024-05-05 12:52] LABS: BUN Creatinine Ratio 14.6 (6-22); Blood Urea Nitrogen 23 mg/dL (7-17); Calcium 9.2 mg/dL (8.4-10.2); Carbon Dioxide 26 mmol/L (22-32); Chloride 104 mmol/L (98-107); Estimated Glomerular Filt Rate 35 mL/min (>60); Glucose 103 mg/dL (80-110); HEMOLYSIS < 15 (0-50); Phosphorous 3.4 mg/dL (2.8-4.1); Potassium 4.1 mmol/L (3.4-5.1); Sodium 138 mmol/L (137-145)
[2024-05-05 13:01] LABS: Vitamin D 25 Hydroxy (D3) 40.3 ng/mL (30.0-100.0)
[2024-05-05 13:19] LABS: Creatinine Urine Random 124.75 mg/dL
[2024-05-05 13:23] LABS: Microalbumin Urine Random 7.1 mg/dL (0-1.6)
[2024-05-06 07:10] LABS: Parathyroid Hormone Int 109 pg/mL (15-65)
== END ==
PROVIDERS: Family Provider Student in an Organized Health Care Education/Training Program; PCP Family Medicine; Referring Provider Internal Medicine Nephrology; Visit Provider Internal Medicine Nephrology
DX: N18.32 Chronic kidney disease, stage 3b (principal)
CPT/HCPCS: 36415; 80048; 82040; 82043; 82306; 82570; 83735; 83970; 84100; 85027

== ENCOUNTER 2024-10-03 19:04 | Emergency (ER) | payer MEDICARE, OTHER, SELFPAY ==
[2023-02-22 15:06] VITALS: BMI 32.4
[2024-10-03 19:08] VITALS: BP 198/83; PULSE 92; RESP 18; TEMP 37.2; O2SAT 96; BMI 34.2
--- NOTE | 2024-10-03 22:07 | DI.CT.S_ITS ---
PROCEDURE: CT SOFT TISSUE NECK W CON INDICATIONS: foriegn body sensation TECHNIQUE: After the administration of intravenous contrast, 3.0 mm axial sections acquired from the sella to the aortic arch. Additional oblique axial 3.0 mm sections acquired through the pharynx. 3 mm thick coronal and sagittal reformats were generated. For radiation dose reduction, the following was used: automated exposure control. COMPARISON: None. FINDINGS: Image quality: Excellent. Lymph nodes: No enlarged lymph nodes seen throughout the neck. Vessels: Visualized vasculature appears patent. Neck spaces: The oropharynx, nasopharynx, and pharynx demonstrate no mucosal lesions. The vocal cords, false vocal cords, pyriform sinuses, epiglottis, vallecula, and tongue base all appear normal. Extramucosal spaces appear unremarkable. Glands: The parotid and submandibular glands appear normal. Enlarged right thyroid lobe with suggestion of 2.4 x 1.8 cm right thyroid lobe hypodense nodule series 2, image 51. Smaller hypodense nodules are seen in left thyroid lobe measures up to 6 millimeter in size. Miscellaneous: Aneurysm clip is noted in the region of right middle cerebral artery. Rest of visualized brain and orbits appear normal. Lung apices appear clear. Superficial soft tissues appear normal. Bilateral breast implants are seen and are grossly intact with peripheral calcifications. Mild fluid distension of esophagus with mild esophageal wall thickening is seen concerning for reflux esophagitis. Bones: No suspicious bony lesions. Visualized sinuses and mastoids appear unremarkable. IMPRESSION: 1. No neck soft tissue mass or lymphadenopathy. No abscess collection. No radiopaque foreign bodies. Airway is patent. 2. Enlarged right thyroid lobe with suggestion of large right thyroid nodule as described above. Non urgent follow-up thyroid ultrasound is recommended. 3. Suggestion of reflux pathology and mild esophagitis. Dictated by: Roberto Larose M.D. on 10/03/2024 at 23:03 Approved by: Roberto Larose M.D. on 10/03/2024 at 23:06
[2024-10-03 22:20] VITALS: PULSE 91; RESP 20; O2SAT 95
--- NOTE | 2024-10-03 22:26 | PC.NURSE ---
Pt provided carbonated beverage and instructed to take small sips as tolerated. Pt took approx 4 small sips and then refuses anymore. States though able to keep down liquid without it coming right back up, it is causing discomfort and increased belching.
[2024-10-03 22:29] VITALS: BP 194/90; PULSE 95; RESP 20; O2SAT 95
[2024-10-03 22:30] VITALS: PULSE 96; RESP 18; O2SAT 96
[2024-10-03 22:32] LABS: Add Manual Diff / Slide Review NO; Basophils Absolute Auto 100 /uL (0-100); Basophils Percent Auto 0.9 % (0-2); Eosinophils Absolute Auto 200 /uL (0-450); Eosinophils Percent Auto 2.2 % (2-4); Hematocrit 40.8 % (36-46); Hemoglobin 13.8 g/dL (12.0-16.0); Lymphocytes Absolute Auto 1300 /uL (1100-4500); Lymphocytes Percent Auto 14.1 % (25-40); Mean Corpuscular HGB Conc 33.8 % (30-36); Mean Corpuscular Hemoglobin 27.8 PG (26-34); Mean Corpuscular Volume 82.3 fL (80-100); Monocytes Absolute Auto 1000 /uL (0-900); Monocytes Percent Auto 10.6 % (3-14); Neutrophils Absolute Auto 6800 /uL (1500-7000); Neutrophils Percent Auto 72.2 % (50-75); Platelet Count 273 X10^3/uL (150-400); Red Blood Cell Count 4.95 X10^6/uL (4.0-5.2); Red Cell Distribution Width 14.6 % (11.6-14.8); White Blood Cell Count 9.4 X10^3/uL (4.5-11.0)
--- NOTE | 2024-10-03 22:37 | PC.NURSE ---
Pt expelled all po fluids taken
[2024-10-03 22:40] LABS: BUN Creatinine Ratio 10.7 (6-22); Blood Urea Nitrogen 17 mg/dL (7-17); Carbon Dioxide 27 mmol/L (22-32); Chloride 105 mmol/L (98-107); HEMOLYSIS < 15 (0-50); Potassium 3.9 mmol/L (3.4-5.1); Sodium 140 mmol/L (137-145)
[2024-10-03 22:41] LABS: Alanine Aminotransferase 27 IU/L (<35); Albumin 4.6 g/dL (3.5-5.0); Albumin Globulin Ratio 1.5 (1.0-2.8); Alkaline Phosphatase 88 U/L (38-126); Aspartate Aminotransferase 31 IU/L (14-36); Bilirubin Total 0.8 mg/dL (0.2-1.3); Calcium 9.3 mg/dL (8.4-10.2); Estimated Glomerular Filt Rate 34 mL/min (>60); Glucose 123 mg/dL (80-110); Total Protein 7.6 g/dL (6.3-8.2)
--- NOTE | 2024-10-03 22:45 | PC.NURSE ---
Pt to imaging via ED stretcher with technology lead
[2024-10-03 23:00] VITALS: PULSE 97; RESP 18; O2SAT 95
[2024-10-03] MEDS: SODIUM CHLORIDE 0.9% 500 ML IV (23:11)
[2024-10-03 23:30] VITALS: PULSE 102; RESP 18; O2SAT 95
[2024-10-04 00:09] VITALS: PULSE 98; RESP 20; O2SAT 96
[2024-10-04 00:28] VITALS: PULSE 106; RESP 20; O2SAT 96
[2024-10-04 00:30] VITALS: BP 192/84; PULSE 102; RESP 20; O2SAT 95
--- NOTE | 2024-10-04 00:36 | ED_ITS ---
HPI - General Adult General Chief complaint: Shortness of Breath/Dyspnea Stated complaint: had to breathe, thinks something is in throat Time Seen by Provider: 10/04/24 00:36 Source: patient and family Mode of arrival: Ambulatory History of Present Illness HPI narrative: 74-year-old female with a past medical history of hypertension, hyperlipidemia, comes into the ED from home for evaluation of globus sensation. She states that earlier today she was eating red meat, as well as potatoes, she states that this happened several hours prior to arrival. She states that she has never had issues with food boluses in the past but has had issues with food feeling ?stuck. She states that she is able to tolerate liquids and solids but feels immediate nausea, patient was able to tolerate p.o. liquids here. Patient denies any other symptoms at this time Related Data Home Medications Medication Instructions Recorded Confirmed amlodipine 10 mg tablet 10 mg PO DAILY 10/21/18 08/18/24 labetalol 300 mg tablet 300 mg PO BID 10/21/18 08/18/24 Excedrin Tension Headache 0.5 tab PO BID PRN Headache 12/31/18 08/18/24 furosemide 20 mg tablet 20 mg PO DAILY 02/05/22 08/18/24 Previous Rx's Medication Instructions Recorded nystatin 100,000 unit/gram topical 1 applic topical BID PRN Rash #30 07/03/21 powder grams atorvastatin 80 mg tablet 80 mg PO BEDTIME #90 tabs 07/30/24 pantoprazole 20 mg tablet,delayed 20 mg PO DAILY 1 month #30 tabs 10/04/24 release (Protonix) Allergies Allergy/AdvReac Type Severity Reaction Status Date / Time morphine Allergy Intermediate ITCHING Verified 08/18/24 13:04 hydrocodone Allergy Mild ITCH Verified 08/18/24 13:04 lisinopril Allergy Mild BACK Verified 08/18/24 13:04 PAIN/HAND NUMBNESS Review of Systems Review of Systems Narrative: General: Denies fever, chills, weight loss HEENT: Denies headache, eye drainage, eye irritation, head trauma, sore throat, voice change Cardiovascular: Denies any chest pain, palpitations, shortness of breath, tachycardia Respiratory: Denies any shortness of breath, cough, wheeze, stridor GI/: Globus sensation in throat, positive nausea Denies any abdominal pain, vomiting, diarrhea, bright red blood per rectum, melanotic stools, urinary frequency, urinary retention, dysuria, hematuria MSK: Denies any joint pain, muscle pains, swelling Skin: Denies any rashes, lesions, discoloration Neuro: Denies any headache, lightheadedness, dizziness, fainting, weakness Psych: Denies SI/HI Patient History Medical History (Updated 10/04/24 @ 00:55 by Edgar Parra DO) CKD (chronic kidney disease) stage 3, GFR 30-59 ml/min 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 ETD (eustachian tube dysfunction) Coronary atherosclerosis Hypertension CVA (cerebral vascular accident) Kulkarni's esophagus determined by biopsy Family History Father Hypertension Mother Gallstones Abdominal aortic aneurysm Sister Hypertension Coronary artery disease Brother Hypertension Coronary artery disease Social History household members: spouse and children Smoking Status: Former smoker alcohol intake: never Smoking Status: Former smoker tobacco type: cigarettes alcohol intake frequency: other Exam Narrative Exam Narrative: General: Cooperative, comfortable, well-developed, not in acute distress HEENT: Normocephalic, atraumatic, PERRLA, normal sclera, eyelids normal, patient is speaking in full sentences protecting airway tolerating secretions no voice changes no stridor no trismus Neck: Active full range of motion, atraumatic Chest: Normal to inspection, negative crepitus, no overlying erythema ecchymosis Respiratory: Normal respiratory effort, not in acute respiratory distress, clear to auscultation bilaterally negative cough, wheeze, tachypnea, rhonchi, rales Cardiology: Regular rate rhythm negative gallop, murmur, rubs GI/: Normal to inspection, soft, nonrigid, no tenderness to palpation, exam deferred MSK: Full range of active range of motion of all 4 extremities, atraumatic Skin: No rashes lesions noted Neuro: Alert awake oriented x3, moves all 4 extremities spontaneously, cranial nerves intact, able to answer all questions appropriately follows commands appropriately Psych: Cooperative, negative suicidal or homicidal ideations Initial Vital Signs Initial Vital Signs: Vital Signs Temperature 98.9 F 10/03/24 19:08 Pulse Rate 92 H 03/02/25 19:08 Respiratory Rate 18 10/03/24 19:08 Blood Pressure 198/83 H 10/03/24 19:08 Pulse Oximetry 96 10/03/24 19:08 Oxygen Delivery Method Room Air 10/03/24 19:08 Course Orders Ordered: ED Orders 10/03/24 22:07 CT soft tissue neck w con Stat 10/03/24 22:22 CBC Auto Diff [Complete Blood Count AUTO DIFF] Stat Comprehensive Metabolic Panel Stat Discontinued Medications Sodium Chloride (Normal Saline 0.9%) 500 mls @ 500 mls/hr IV BOLUS ONE Stop: 10/03/24 23:59 Last Infusion: 10/04/24 00:12 Dose: Infused Documented By: Admin: 10/03/24 23:11 Dose: 500 mls/hr Documented By: FANNIE Vital Signs Vital signs: Vital Signs - 8 hr 10/03/24 19:08 10/03/24 22:20 10/03/24 22:29 Temperature 98.9 F Pulse Rate 92 H 91 H Respiratory Rate 18 20 Blood Pressure 198/83 H 194/90 H Pulse Oximetry 96 95 Oxygen Delivery Method Room Air Room Air 10/03/24 22:29 10/03/24 22:30 10/03/24 23:00 Temperature Pulse Rate 95 H 96 H 97 H Respiratory Rate 20 18 18 Blood Pressure Pulse Oximetry 95 96 95 Oxygen Delivery Method Room Air Room Air 10/03/24 23:30 10/04/24 00:09 10/04/24 00:28 Temperature Pulse Rate 102 H 98 H 106 H Respiratory Rate 18 20 20 Blood Pressure Pulse Oximetry 95 96 96 Oxygen Delivery Method Room Air Room Air Room Air 10/04/24 00:30 10/04/24 00:30 Temperature Pulse Rate 102 H Respiratory Rate 20 Blood Pressure 192/84 H Pulse Oximetry 95 Oxygen Delivery Method Room Air Medical Decision Making Differential Diagnosis Differential Diagnosis: Food bolus, electrolyte abnormality, globus sensation Lab Data 10/03/24 22:22 10/03/24 22:22 Labs: Lab Results 10/03/24 Range/Units 22:22 WBC 9.4 (4.5-11.0) X10^3/uL RBC 4.95 (4.0-5.2) X10^6/uL Hgb 13.8 (12.0-16.0) g/dL Hct 40.8 (36-46) % MCV 82.3 (80-100) fL MCH 27.8 (26-34) PG MCHC 33.8 (30-36) % RDW 14.6 (11.6-14.8) % Plt Count 273 (150-400) X10^3/uL Neut % (Auto) 72.2 (50-75) % Lymph % (Auto) 14.1 L (25-40) % [place] % (Auto) 10.6 (3-14) % Eos % (Auto) 2.2 (2-4) % Baso % (Auto) 0.9 (0-2) % Neut # (Auto) 6800 (9497-6956) /uL Lymph # (Auto) 1300 (1977-5286) /uL [place] # (Auto) 1000 H (0-900) /uL Eos # (Auto) 200 (0-450) /uL Baso # (Auto) 100 (0-100) /uL Sodium 140 (137-145) mmol/L Potassium 3.9 (3.4-5.1) mmol/L Chloride 105 (98-107) mmol/L Carbon Dioxide 27 (22-32) mmol/L BUN 17 (7-17) mg/dL Creatinine 1.59 H (0.52-1.04) mg/dL Estimated GFR 34 L (>60) mL/min BUN/Creatinine Ratio 10.7 (6-22) Glucose 123 H (80-110) mg/dL Calcium 9.3 (8.4-10.2) mg/dL Total Bilirubin 0.8 (0.2-1.3) mg/dL AST 31 (14-36) IU/L ALT 27 (<35) IU/L Alkaline Phosphatase 88 (38-126) U/L Total Protein 7.6 (6.3-8.2) g/dL Albumin 4.6 (3.5-5.0) g/dL Globulin 3.0 (1.7-4.1) g/dL Albumin/Globulin Ratio 1.5 (1.0-2.8) Imaging Data CT soft tissue neck: Radiologist's Impression: [address] [address] [address] Scan Report Signed Patient: Meliza Mccann I MR#: [id number] : 1950 Acct:[id number] Age/Sex: 74 / F Date of Service: 10/03/24 Loc: ED Accession Number: [id number] Procedure: CT soft tissue neck w con Ordering Provider: Edgar Parra D.O. PROCEDURE: CT SOFT TISSUE NECK W CON INDICATIONS: foriegn body sensation TECHNIQUE: After the administration of intravenous contrast, 3.0 mm axial sections acquired from the sella to the aortic arch. Additional oblique axial 3.0 mm sections acquired through the pharynx. 3 mm thick coronal and sagittal reformats were generated. For radiation dose reduction, the following was used: automated exposure control. COMPARISON: None. FINDINGS: Image quality: Excellent. Lymph nodes: No enlarged lymph nodes seen throughout the neck. Vessels: Visualized vasculature appears patent. Neck spaces: The oropharynx, nasopharynx, and pharynx demonstrate no mucosal lesions. The vocal cords, false vocal cords, pyriform sinuses, epiglottis, vallecula, and tongue base all appear normal. Extramucosal spaces appear unremarkable. Glands: The parotid and submandibular glands appear normal. Enlarged right thyroid lobe with suggestion of 2.4 x 1.8 cm right thyroid lobe hypodense nodule series 2, image 51. Smaller hypodense nodules are seen in left thyroid lobe measures up to 6 millimeter in size. Miscellaneous: Aneurysm clip is noted in the region of right middle cerebral artery. Rest of visualized brain and orbits appear normal. Lung apices appear clear. Superficial soft tissues appear normal. Bilateral breast implants are seen and are grossly intact with peripheral calcifications. Mild fluid distension of esophagus with mild esophageal wall thickening is seen concerning for reflux esophagitis. Bones: No suspicious bony lesions. Visualized sinuses and mastoids appear unremarkable. IMPRESSION: 1. No neck soft tissue mass or lymphadenopathy. No abscess collection. No radiopaque foreign bodies. Airway is patent. 2. Enlarged right thyroid lobe with suggestion of large right thyroid nodule as described above. Non urgent follow-up thyroid ultrasound is recommended. 3. Suggestion of reflux pathology and mild esophagitis. [facility] Narrative Medical decision making narrative: 74-year-old female history of Kulkarni's esophagus GERD hypertension hyperlipidemia presents to emergency department for globus sensation. She states that earlier today she was eating meat and potatoes states that she felt like something was stuck in her throat tried to vomit it up but without any improved symptoms therefore decided come into the ED for further evaluation treatment. Patient had lab work imaging performed here lab work without any leukocytosis Chem panel with creatinine baseline 1.59 otherwise unremarkable. Patient was able to tolerate p.o. liquids here in the emergency department. However she states that she still feels the globus sensation. She has not drooling she has no stridor no voice changes no trismus tolerating secretions. Patient was instructed to follow up with GI in an outpatient setting to return to the emergency department if she has not able to tolerate any p.o. liquids or solids. She was given strict return precautions she verbalized understanding of this and agrees to being discharged home with outpatient follow up Discharge Plan Departure Patient Disposition: Home Clinical Impression: Globus sensation Instructions: Steakhouse Syndrome Activity Restrictions/Additional Instructions: Please follow up with Gastroenterology and your primary care doctor Please read the discharge instructions sheet carefully and bring all papers to all doctor follow-up visits, as it may contain information that your doctor may want to see. Disease processes change and evolve, if your symptoms worsen or if you develop any new symptoms that are concerning to you please return for evaluation. Your evaluation today does not show any evidence of any life- threatening/serious illnesses requiring admission to the hospital or surgery. Please follow-up with your doctor for re-evaluation in approximately 1 day. Seek immediate medical attention for any worrisome symptoms. *If you do not have a primary care provider please contact the [facility] Resource line at [phone]. They will ask some questions about your medical history and help get you set up with a doctor in the community. Prescriptions: New pantoprazole [Protonix] 20 mg tablet,delayed release (DR/EC) 20 mg PO DAILY 30 Days Qty: 30 0RF No Action atorvastatin 80 mg tablet 80 mg PO BEDTIME Qty: 90 0RF Rx Instructions: APPT OVERDUE WITH PCP. PLEASE CALL TO SCHEDULE APPT BEFORE END OF RX/FUTURE FILLS. THANK YOU 07/30/24. amlodipine 10 mg tablet 10 mg PO DAILY labetalol 300 mg tablet 300 mg PO BID nystatin 100,000 unit/gram powder 1 applic TOP BID PRN (Reason: Rash) Qty: 30 2RF furosemide 20 mg tablet 20 mg PO DAILY Excedrin Tension Headache 0.5 tab PO BID PRN (Reason: Headache) Referrals: Chance Camarillo MD [Non-Staff] - 3-5 days Rosenda Gonzales DO [Primary Care Provider] - Stand Alone Forms: Patient Portal/API/Survey
== END 2024-10-04 01:01 | disposition home or self-care (01) ==
PROVIDERS: Emergency Provider Student in an Organized Health Care Education/Training Program; Family Provider Student in an Organized Health Care Education/Training Program; PCP Family Medicine
DX: R09.A2 Foreign body sensation, throat (principal)
CPT/HCPCS: 36415; 70491; 80053; 85025; 99284; Q9967

== ENCOUNTER → 2024-10-28 11:34 | Outpatient (CLI) | payer MEDICARE, OTHER, SELFPAY ==
[2023-02-22 15:06] VITALS: BMI 32.4
--- NOTE | 2024-10-28 14:51 | ST.SWALLOW ---
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 Pt stated breads and meats were the primary foods that are a problem. Pt denied difficulty with liquids or medications. She denied regurgitation of undigested foods/liquids. Pt PMH includes remote brain aneuism (1994), GERD, Kulkarni' esophagus and thyroid nodule. Pt takes Pantoprazol daily for GERD. 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 Pt was seen in the ED on 10/04 with c/o food feeling ?stuck. She states that she is able to tolerate liquids and solids but feels immediate nausea (e .g., gagging). Subjective Observations Pt was seated in the fluoroscopy chair with directions and procedures described for him. He indicated he understood and agreed to proceed. Patient Positioning Position View Lat-A/P Imaging Lateral View Textures Administered Trials Presented Thin Liquid via Spoon (IDDSI 0 ),Thin Liquid via Cup (IDDSI 0 ),Extremely Thick Liquid via Spoon (IDDSI 4),Regular (IDDSI 7) Barium Tablet Yes The IDDSI Framework Protocol: IDDSI.1 Oral Impairment Source: The Modified Barium Swallow Impairment Profile (MBSImP??) Lip Closure No labial escape Tongue Control During Bolus Hold Posterior escape of less than half of bolus Bolus Preparation/Mastication Slow prolonged chewing/mashing with complete re-collection Bolus Transport/Lingual Motion Delayed initiation of tongue motion Oral Residue Complete oral clearance Initiation of Pharyngeal Swallow Bolus head at pyriforms Additional Oral Impairment Observations *OME and DKS were observed to be WNL. *Dentition natural and in good hygiene *Mastication observed with rotary chew pattern. *Good bolus formation, control and AP transition. *Swallow initation when bolus head at pyriforms (variant of normal) Oral phase of swallow WNL Pharyngeal Impairment Source: The Modified Barium Swallow Impairment Profile (MBSImP??) Soft Palate Elevation No bolus between soft palate & pharyngeal wall Laryngeal Elevation Comp.sup.move.thyroid cart.w/ comp.approx.arytenoids to epiglot petiole Anterior Hyoid Excursion Complete anterior movement Epiglottic Movement Complete inversion Laryngeal Vestibular Closure Complete; no air/contrast in laryngeal vestibule Pharyngeal Stripping Wave Present - complete Pharyngoesophageal Segment Opening Complete distention & complete duration; no obstruction of flow Tongue Base Retraction Trace column of contrast/air betwn tongue base & post. pharyngeal wall Pharyngeal Residue Trace residue within/on pharyngeal structures Location Valleculae Additional Pharyngeal Impairment *Velopharyngeal closure was Observations WNL. *Hyoid/laryngeal elevation and epiglottic inversion were judged to be adequate. *Tongue base retraction was mildly reduced resulting in trace residue. *Pharyngeal stripping wave and cricopharyngeal opening appeared adequate and did not appear to impede bolus flow. *Post-swallow residue was mild primarily at the base of tongue, posterior pharyngeal wall, valleculae and pyriform sinuses primarily with puree and regular texture. Pt did sensate to residue and independently cleared with dry swallows. *Flash laryngeal penetration and no aspiration were observed. *Pharyngeal phase WFL for pt's age. A/P View Textures Administered Trials Presented Thin Liquid via Spoon (IDDSI 0 ),Thin Liquid via Cup (IDDSI 0 ),Regular (IDDSI 7) The IDDSI Framework Protocol: IDDSI.1 A/P View Observations Pharyngeal Contraction Complete Esophageal Clearance Upright Position Esophageal retention Vocal Fold Function Good Esophageal Function Slowed Clearing,Stasis Additional A-P Observations Thin liquid trial, regular texture trial, and calibrated barium tablet trial were observed: *Upon changing to AP position, observed moderate amount of residue within the esophagus from prior trials. *With the regular texture trial, esophageal retention was noted mid chest. *A calibrated barium tablet was observed to stop mid chest and then near the LES. Several swallows of water did not assist tablet to stomach. MBSS stopped after 1 1 minute 45 seconds with tablet at LES *Small hiatal hernia was observed throughout the trials . [ End ] Clinical Impressions Dysphagia Type Esophageal Findings Oral and pharyngeal phases of pt's swallow were WFL/WNL. Stasis, dysmotility, and slow clearance of esophageal contents noted during esophageal phase. Given history of hiatal hernia, observations during esophageal phase of swallow, and pt reported esophageal symptoms, further assessment to further assess and treat esophageal symptoms is recommended. Recommend pt continue with scheduled GI appointment. Additionally, recommend pt continue to self-modify diet as needed, utilize slow rate, remain upright during PO intake and for at least 30- minutes after, and alternate liquids and solids to assist in mitigating esophageal symptoms. Patient Appropriate for Therapy No Recommendations Diet Comments no diet changes recommended Aspiration Precautions Recommended Precautions Upright at 90 Degrees, Alternate Liquids/Solids,Small Bites/Sips Treatment Plan Recommended Referrals GI Consult Therapy Strategy Recommendations Sitting Upright (90 deg),Small Bites and Sips,Alternate Liquids/Solids
== END ==
PROVIDERS: PCP Family Medicine; Referring Provider Family Medicine; Visit Provider Family Medicine
DX: R09.A2 Foreign body sensation, throat (principal); I63.9 Cerebral infarction, unspecified; E66.9 Obesity, unspecified; E21.3 Hyperparathyroidism, unspecified; E04.1 Nontoxic single thyroid nodule
CPT/HCPCS: 74230; 92610

== ENCOUNTER → 2024-11-10 10:25 | Outpatient (CLI) | payer MEDICARE, OTHER, SELFPAY ==
[2023-02-22 15:06] VITALS: BMI 32.4
[2024-11-10 11:09] LABS: Hematocrit 39.4 % (36-46); Hemoglobin 12.9 g/dL (12.0-16.0); Mean Corpuscular HGB Conc 32.8 % (30-36); Mean Corpuscular Hemoglobin 27.2 PG (26-34); Platelet Count 275 X10^3/uL (150-400); Red Blood Cell Count 4.75 X10^6/uL (4.0-5.2); Red Cell Distribution Width 15.2 % (11.6-14.8); White Blood Cell Count 8.4 X10^3/uL (4.5-11.0)
[2024-11-10 11:24] LABS: Albumin 4.2 g/dL (3.5-5.0); BUN Creatinine Ratio 11.4 (6-22); Blood Urea Nitrogen 19 mg/dL (7-17); Calcium 9.8 mg/dL (8.4-10.2); Carbon Dioxide 27 mmol/L (22-32); Chloride 105 mmol/L (98-107); Estimated Glomerular Filt Rate 32 mL/min (>60); Glucose 138 mg/dL (80-110); HEMOLYSIS < 15 (0-50); Magnesium 1.8 mg/dL (1.6-2.3); Phosphorous 3.6 mg/dL (2.8-4.1); Sodium 139 mmol/L (137-145)
[2024-11-10 11:40] LABS: Vitamin D 25 Hydroxy (D3) 26.1 ng/mL (30.0-100.0)
[2024-11-10 15:33] LABS: Creatinine Urine Random 115.83 mg/dL
[2024-11-10 15:38] LABS: Microalbumin Urine Random 3.1 mg/dL (0-1.6)
[2024-11-11 05:11] LABS: Parathyroid Hormone Int 62 pg/mL (15-65)
== END ==
PROVIDERS: PCP Family Medicine; Referring Provider Internal Medicine Nephrology; Visit Provider Internal Medicine Nephrology
DX: N18.32 Chronic kidney disease, stage 3b (principal)
CPT/HCPCS: 36415; 80048; 82040; 82043; 82306; 82570; 83735; 83970; 84100; 85027

== ENCOUNTER → 2025-04-27 10:36 | Outpatient (CLI) | payer MEDICARE, OTHER, SELFPAY ==
[2023-02-22 15:06] VITALS: BMI 32.4
[2025-04-27 11:28] LABS: Albumin 4.4 g/dL (3.5-5.0); Blood Urea Nitrogen 17 mg/dL (7-17); Calcium 9.1 mg/dL (8.4-10.2); Carbon Dioxide 28 mmol/L (22-32); Chloride 104 mmol/L (98-107); Estimated Glomerular Filt Rate 35 mL/min (>60); Glucose 114 mg/dL (70-99); HEMOLYSIS < 15 (0-50); Magnesium 1.9 mg/dL (1.6-2.3); Phosphorous 3.3 mg/dL (2.8-4.1); Potassium 3.8 mmol/L (3.4-5.1); Sodium 138 mmol/L (137-145)
[2025-04-27 11:45] LABS: Vitamin D 25 Hydroxy (D3) 15.4 ng/mL (30.0-100.0)
[2025-04-27 16:38] LABS: Protein (Total) Urine Random 18 mg/dL (0-12); Protein Creatinine Ratio Urine 0.21 GRAM/24H
== END ==
PROVIDERS: PCP Family Medicine; Referring Provider Internal Medicine Nephrology; Visit Provider Internal Medicine Nephrology
DX: N18.32 Chronic kidney disease, stage 3b (principal)
CPT/HCPCS: 36415; 80048; 82040; 82306; 82570; 83735; 83970; 84100; 84156

== ENCOUNTER 2025-05-05 22:30 | Emergency (ER) | payer MEDICARE, OTHER, SELFPAY ==
[2023-02-22 15:06] VITALS: BMI 32.4
--- NOTE | 2025-05-05 22:34 | DI.RAD.S_ITS ---
PROCEDURE: XR CHEST 1V INDICATIONS: Shortness of breath TECHNIQUE: One view of the chest was acquired. COMPARISON: [facility], , XR CHEST 1V, 02/22/2023, 12:20. [facility], CR, XR CHEST 1V, 01/26/2022, 13:24. FINDINGS: Surgical changes and devices: Breast implants. Lungs and pleura: Lungs are clear. No pleural effusions or pneumothorax. Mediastinum: Mediastinal contours appear normal. Heart size is normal. Bones and chest wall: No suspicious bony lesions. Overlying soft tissues appear unremarkable. IMPRESSION: No acute cardiopulmonary abnormality is seen. Dictated by: Akbar Lopez M.D. on 05/06/2025 at 0:11 Approved by: Akbar Lopez M.D. on 05/06/2025 at 0:12
[2025-05-05] MEDS: ALBUTEROL 2.5 MG/3 ML NEB (ADULT) 20 MG INH (22:41)
[2025-05-05 22:42] LABS: Add Manual Diff / Slide Review NO; Hematocrit 37.8 % (36-46); Hemoglobin 12.6 g/dL (12.0-16.0); Lymphocytes Absolute Auto 1500 /uL (1100-4500); Mean Corpuscular HGB Conc 33.3 % (30-36); Mean Corpuscular Hemoglobin 26.4 PG (26-34); Mean Corpuscular Volume 79.2 fL (80-100); Platelet Count 267 X10^3/uL (150-400)
[2025-05-05 22:43] VITALS: RESP 24; BMI 32.9
--- NOTE | 2025-05-05 22:47 | EKG_ITS ---
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
[2025-05-05 22:48] LABS: INR 1.0 (0.9-1.3); Prothrombin Time 11.4 SECONDS (9.4-12.5)
[2025-05-05 22:49] VITALS: PULSE 98; RESP 41; O2SAT 98
[2025-05-05 22:56] LABS: Lactate (Lactic Acid) 1.3 mmol/L (0.7-2.1)
[2025-05-05 22:57] LABS: Alanine Aminotransferase 20 IU/L (<35); Albumin 4.7 g/dL (3.5-5.0); Albumin Globulin Ratio 1.6 (1.0-2.8); Alkaline Phosphatase 83 U/L (38-126); Blood Urea Nitrogen 18 mg/dL (7-17); Calcium 9.2 mg/dL (8.4-10.2); Carbon Dioxide 26 mmol/L (22-32); Chloride 102 mmol/L (98-107); Estimated Glomerular Filt Rate 43 mL/min (>60); Globulin 3.0 g/dL (1.7-4.1); Glucose 112 mg/dL (70-99); HEMOLYSIS < 15 (0-50); Potassium 3.6 mmol/L (3.4-5.1); Sodium 138 mmol/L (137-145); Total Protein 7.7 g/dL (6.3-8.2)
[2025-05-05 23:00] VITALS: PULSE 97; RESP 18; O2SAT 97
[2025-05-05 23:01] VITALS: BP 161/71; PULSE 96; RESP 21; O2SAT 96
[2025-05-05 23:08] LABS: NT-proBNP (BNP-Adult 18+) 147 pg/mL (<125); Troponin I < 0.012 ng/mL (0.01-0.034)
[2025-05-05 23:30] VITALS: BP 174/77; PULSE 101; RESP 19; O2SAT 91
--- NOTE | 2025-05-05 23:43 | ED_ITS ---
HPI - SOB/Dyspnea General Chief Complaint: Shortness of Breath/Dyspnea Stated Complaint: difficulty breathing Time Seen by Provider: 05/05/25 23:40 Source: patient and EMS Mode of arrival: EMS Limitations: no limitations History of Present Illness HPI Narrative: 75-year-old female patient with a history of COPD, CVA, hypertension, type 2 diabetes, dyslipidemia and chronic kidney disease stage 3 who complains of worsening cough, shortness of breath and wheezing over the last 3 days with no fever or chills. She is not on home oxygen. Related Data Home Medications ?Medication ?Instructions ?Recorded ?Confirmed labetalol 300 mg tablet 300 mg PO BID 10/21/1808/18 acetaminophen-caffeine 500 mg-65 1 tab PO Q12H PRN 07/2810/13/24 mg tablet (Excedrin Tension Headache) Previous Rx's ?Medication ?Instructions ?Recorded nystatin 100,000 unit/gram topical 1 applic topical BI D PRN Rash #30 07/03/21 powder grams amlodipine 5 mg tablet 5 mg PO DAILY #90 tabs 10/13 atorvastatin 80 mg tablet 80 mg PO BEDTIME #90 tabs furosemide 20 mg tablet 20 mg PO DAILY #90 tabs 10/02 09/28 pantoprazole 20 mg tablet,delayed 20 mg PO DAILY acid reflux 30 days 01/12/25 release (Protonix) #90 tabs prednisone 50 mg tablet 50 mg PO DAILY 3 days #3 tab s 05/06/25 Allergies Allergy/AdvReac Type Severity Reaction Status Date / Time morphine Allergy Intermediate ITCHING Verified 10/13/24 07:35 hydrocodone Allergy Mild ITCH Verified 10/13/24 07:35 lisinopril Allergy Mild BACK Verified 10/13/24 07:35 PAIN/HAND NUMBNESS Patient History Medical History (Updated 05/06/25 @ 02:22 by Shane Cleveland MD) CKD (chronic kidney disease) stage 3, GFR 30-59 ml/min 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 ETD (eustachian tube dysfunction) Coronary atherosclerosis Hypertension CVA (cerebral vascular accident) 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 [id number] respiratory distress. Appears well nourished and well hydrated Craniofacial: No evidence of trauma. Nontender and no swelling. Eyes: PERRLA EOMI conjunctiva clear HEENT: Oropharynx clear with no swelling, exudate or asymmetry of the pharynx. Nares clear. No sinus tenderness Neck: No tenderness or adenopathy. No meningismus. No JVD Lungs: Diminished breath sounds with prolonged expiratory phase and wheezing. [id number] respiratory distress. Cardiac: Regular rate and rhythm with no appreciable murmur or gallop Abdomen: Soft, nontender with no distention or masses. Normal bowel sounds. No rebound or guarding Musculoskeletal: Exam of the extremities, axial spine and ribcage reveals no deformity, bony tenderness or swelling. Range of motion intact Neuro: Alert and oriented. Cranial nerves, motor, sensory and cerebellar all grossly intact. No focal deficit Skin: Warm and normal color. No rashes Psychological: Normal affect and interaction. No evidence of delusion or psychosis. Normal mood. Initial Vital Signs Initial Vital Signs: Vital Signs Respiratory Rate 24 05/05/25 22:43 Course Course Course Narrative: Patient improved with continuous neb treatment and Solu-Medrol. She feels back to baseline. Chest x-ray is unremarkable for infiltrates. Lab work is essentially unremarkable and reassuring. She appears to have a viral upper respiratory infection with exacerbation of COPD. Orders Ordered: ED Orders 05/05/25 22:30 Complete Blood Count AUTO DIFF Stat Comprehensive Metabolic Panel Stat Lactate (Lactic Acid) Stat NT-proBNP (BNP-Adult 18+) Stat Procalcitonin Stat Prothrombin Time INR Stat Troponin I Stat 05/05/25 22:34 XR chest 1V Stat EKG-12 Lead Stat Measure peak expiratory flow STAT RT Consult Eval and Treat STAT 05/06/25 01:30 Covid-19 + FLU A/B + RSV - PCR Stat Discontinued Medications Albuterol (Albuterol 2.5 Mg/3 Ml Neb (Adult)) 20 mg INH NOW ONE Stop: 05/05/25 22:39 Last Admin: 05/05/25 22:41 Dose: 20 mg Documented By: Albuterol (Albuterol Hfa Prepack) 1 box MISC DIRECTED ONE Stop: 05/06/25 02:32 Last Admin: 05/06/25 02:37 Dose: 1 box Documented By: Albuterol (Albuterol Hfa Prepack) 1 box MISC DIRECTED ONE Stop: 05/06/25 02:36 Methylprednisolone (Methylprednisolone Succ 125 Mg/2 Ml Vial) 125 mg IV NOW ONE Stop: 05/06/25 01:14 Last Admin: 05/06/25 01:23 Dose: 125 mg Documented By: JOSE Non-Formulary Medication (Solum) 125 mg IV DIRECTED ONE Stop: 05/05/25 23:53 Vital Signs Vital signs: Vital Signs - 8 hr 05/05/25 22:43 05/05/25 22:49 05/05/25 23:00 Pulse Rate 98 H 97 H Respiratory Rate 24 41 H 18 Blood Pressure Pulse Oximetry 98 97 Oxygen Delivery Method Oxygen Flow Rate 05/05/25 23:01 05/05/25 23:01 05/05/25 23:30 Pulse Rate 96 H 101 H Respiratory Rate 21 19 Blood Pressure 161/71 H Pulse Oximetry 96 91 Oxygen Delivery Method Nasal Cannula Oxygen Flow Rate 2 05/05/25 23:30 05/06/25 00:00 05/06/25 00:00 Pulse Rate 106 H Respiratory Rate 12 Blood Pressure 174/77 H 151/75 H Pulse Oximetry 95 Oxygen Delivery Method Oxygen Flow Rate 05/06/25 00:30 05/06/25 00:30 05/06/25 01:00 Pulse Rate 101 H Respiratory Rate 18 Blood Pressure 152/70 H 168/73 H Pulse Oximetry 98 Oxygen Delivery Method Oxygen Flow Rate 05/06/25 01:00 05/06/25 01:30 05/06/25 01:30 Pulse Rate 104 H 109 H Respiratory Rate 21 20 Blood Pressure 188/79 H Pulse Oximetry 96 89 L Oxygen Delivery Method Oxygen Flow Rate 05/06/25 01:44 05/06/25 02:00 05/06/25 02:01 Pulse Rate 108 H 108 H Respiratory Rate 19 20 Blood Pressure 185/70 H Pulse Oximetry 89 L 89 L Oxygen Delivery Method Oxygen Flow Rate 05/06/25 02:01 05/06/25 02:30 05/06/25 02:33 Pulse Rate 105 H 108 H Respiratory Rate 21 25 H Blood Pressure 178/75 H Pulse Oximetry 91 Oxygen Delivery Method Room Air Oxygen Flow Rate MDM - SOB/Dyspnea Differential Diagnosis Differential diagnosis: Likely acute exacerbation of chronic obstructive airways disease, congestive heart failure, community acquired pneumonia, asthma with exacerbation and pulmonary embolism Lab Data Attestation: I reviewed the patient's lab results. Lab results narrative: CBC and CMP reveal no acute changes. She has her creatinine of 1.31 with chronic renal insufficiency. Troponin negative. 05/05/25 22:30 05/05/25 22:30 Labs: Lab Results 05/05/25 05/06/25 Range/Units 22:30 01:30 WBC 9.8 (4.5-11.0) X10^3/uL RBC 4.78 (4.0-5.2) X10^6/uL Hgb 12.6 (12.0-16.0) g/dL Hct 37.8 (36-46) % MCV 79.2 L (80-100) fL MCH 26.4 (26-34) PG MCHC 33.3 (30-36) % RDW 16.0 H (11.6-14.8) % Plt Count 267 (150-400) X10^3/uL Neut % (Auto) 59.1 (50-75) % Lymph % (Auto) 15.4 L (25-40) % Wirt % (Auto) 13.2 (3-14) % Eos % (Auto) 11.3 H (2-4) % Baso % (Auto) 1.0 (0-2) % Neut # (Auto) 5800 (9834-6250) /uL Lymph # (Auto) 1500 (8032-2816) /uL Wirt # (Auto) 1300 H (0-900) /uL Eos # (Auto) 1100 H (0-450) /uL Baso # (Auto) 100 (0-100) /uL PT 11.4 (9.4-12.5) SECONDS INR 1.0 (0.9-1.3) Sodium 138 (137-145) mmol/L Potassium 3.6 (3.4-5.1) mmol/L Chloride 102 (98-107) mmol/L Carbon Dioxide 26 (22-32) mmol/L BUN 18 H (7-17) mg/dL Creatinine 1.31 H (0.52-1.04) mg/dL Estimated GFR 43 L (>60) mL/min BUN/Creatinine Ratio 13.7 (6-22) Glucose 112 H (70-99) mg/dL Lactate 1.3 (0.7-2.1) mmol/L Calcium 9.2 (8.4-10.2) mg/dL Total Bilirubin 1.2 (0.2-1.3) mg/dL AST 31 (14-36) IU/L ALT 20 (<35) IU/L Alkaline Phosphatase 83 (38-126) U/L Troponin I < 0.012 (0.01-0.034) ng/mL NT-Pro-B Natriuret Pep 147 H (<125) pg/mL Total Protein 7.7 (6.3-8.2) g/dL Albumin 4.7 (3.5-5.0) g/dL Globulin 3.0 (1.7-4.1) g/dL Albumin/Globulin Ratio 1.6 (1.0-2.8) Procalcitonin 0.086 (<0.5) ng/mL SARS-CoV-2 (PCR) Negative (Negative) Influenza A (RT-PCR) Flu a negative (NEGATIVE) Influenza B (RT-PCR) Flu b negative (NEGATIVE) RSV (PCR) Negative (Negative) Imaging Data Chest x-ray: My Impression: No infiltrates or acute disease on chest x-ray ECG Data Attestation: I personally reviewed and interpreted this ECG as follows: (Sinus rhythm. No ischemic changes. Normal axis and intervals.) [facility] Narrative Medical decision making narrative: Patient arrived with COPD exacerbation and her lab work and chest x-ray were unremarkable for pneumonia and acute disease. She improved with nebulizer treatments and Solu-Medrol and is requesting discharge home. I do not believe she needs antibiotics based on her chest x-ray and lab work including negative procalcitonin. She was given instructions on continuing her nebulizer treatments. Also 3 day course of prednisone and follow up closely with primary care. Return to the ER if worse Discharge Plan Departure Patient Disposition: Home Clinical Impression: Acute exacerbation of chronic obstructive pulmonary disease, Acute upper respiratory infection Instructions: Chronic Obstructive Pulmonary Disease, DI for Viral Upper Respiratory Infection -- Adult Prescriptions: New prednisone 50 mg tablet 50 mg PO DAILY 3 Days Qty: 3 0RF No Action pantoprazole [Protonix] 20 mg tablet,delayed release (DR/EC) 20 mg PO DAILY 30 Days Qty: 90 3RF labetalol 300 mg tablet 300 mg PO BID nystatin 100,000 unit/gram powder 1 applic TOP BID PRN (Reason: Rash) Qty: 30 2RF Excedrin Tension Headache 500-65 mg tablet 1 tab PO Q12H PRN amlodipine 5 mg tablet 5 mg PO DAILY Qty: 90 3RF atorvastatin 80 mg tablet 80 mg PO BEDTIME Qty: 90 3RF furosemide 20 mg tablet 20 mg PO DAILY Qty: 90 3RF Referrals: Rosenda Gonzales DO [Primary Care Provider, Family Practice] Stand Alone Forms: Patient Portal/API
[2025-05-06] VITALS (9 sets, daily range): BP systolic 151–188; BP diastolic 70–79; PULSE 101–109; RESP 12–25; O2SAT 89–98
[2025-05-06 00:21] LABS: Procalcitonin 0.086 ng/mL (<0.5)
[2025-05-06] MEDS: methylPREDNISolone succ 125 MG/2 ML VIAL IV (01:23)
[2025-05-06 02:20] LABS: Influenza A - CEPHEID Flu A NEGATIVE (NEGATIVE); Influenza B - CEPHEID Flu B NEGATIVE (NEGATIVE)
[2025-05-06 02:27] LABS: COVID-19 CEPHEID 4-PLEX PCR Negative (Negative)
[2025-05-06] MEDS: ALBUTEROL HFA PREPACK 1 BOX MISC (02:37)
== END 2025-05-06 02:40 | disposition home or self-care (01) ==
PROVIDERS: Emergency Provider Emergency Medicine; PCP Family Medicine
DX: J44.1 Chronic obstructive pulmonary disease with (acute) exacerbation (principal); J06.9 Acute upper respiratory infection, unspecified; Z86.79 Personal history of other diseases of the circulatory system; N18.30 Chronic kidney disease, stage 3 unspecified
CPT/HCPCS: 36415; 71045; 80053; 83605; 83880; 84145; 84484; 85025; 85610; 87637; 93005; 96374; 99285; J2919; J7613

== ENCOUNTER → 2025-06-03 10:43 | Outpatient (CLI) | payer MEDICARE, OTHER, SELFPAY ==
[2023-02-22 15:06] VITALS: BMI 32.4
[2025-06-03 11:47] LABS: Alanine Aminotransferase 21 IU/L (<35); Albumin 4.1 g/dL (3.5-5.0); Albumin Globulin Ratio 1.6 (1.0-2.8); Alkaline Phosphatase 83 U/L (38-126); Blood Urea Nitrogen 18 mg/dL (7-17); Calcium 9.4 mg/dL (8.4-10.2); Carbon Dioxide 28 mmol/L (22-32); Chloride 102 mmol/L (98-107); Estimated Glomerular Filt Rate 39 mL/min (>60); Globulin 2.6 g/dL (1.7-4.1); Glucose 116 mg/dL (70-99); HEMOLYSIS < 15 (0-50); Potassium 4.0 mmol/L (3.4-5.1); Sodium 138 mmol/L (137-145); Total Protein 6.7 g/dL (6.3-8.2)
== END ==
PROVIDERS: PCP Family Medicine; Referring Provider Family Medicine; Visit Provider Family Medicine
DX: R91.8 Other nonspecific abnormal finding of lung field (principal); N18.32 Chronic kidney disease, stage 3b
CPT/HCPCS: 36415; 80053

== ENCOUNTER → 2025-06-09 14:04 | Outpatient (CLI) | payer MEDICARE, OTHER, SELFPAY ==
[2023-02-22 15:06] VITALS: BMI 32.4
--- NOTE | 2025-06-09 14:06 | DI.CT.S_ITS ---
PROCEDURE: CT CHEST W CON
--- NOTE | 2025-06-09 14:06 | DI.US.S_ITS ---
PROCEDURE: US THYROID
== END ==
LOC: CT 14:05
PROVIDERS: PCP Family Medicine; Referring Provider Family Medicine; Visit Provider Family Medicine
DX: E04.1 Nontoxic single thyroid nodule (principal); E21.3 Hyperparathyroidism, unspecified; R09.A2 Foreign body sensation, throat; R91.8 Other nonspecific abnormal finding of lung field; J43.9 Emphysema, unspecified; J44.9 Chronic obstructive pulmonary disease, unspecified; Z87.891 Personal history of nicotine dependence
CPT/HCPCS: 71260; 76536; Q9967

== ENCOUNTER → 2025-07-01 13:38 | Outpatient (CLI) | payer MEDICARE, OTHER, SELFPAY ==
[2023-02-22 15:06] VITALS: BMI 32.4
--- NOTE | 2025-07-01 | PATH_ITS ---
Note [facility] Accession Number: [id number] TESTS RESULT FLAG UNITS REF RANGE LAB Clinician Provided Cytology Information No. of containers..01 Other (Miscellaneous) No. of containers..09 Previously Prepared Cytology Slide 70 Unknown Storage/container code(s) Source: RT THYROID NODULE #1 DIAGNOSIS: RIGHT THYROID NODULE #1, FINE NEEDLE ASPIRATION. MARGINALLY ADEQUATE FOR EVALUATION. FEW FOLLICULAR GROUPS PRESENT. FAVOR BENIGN FOLLICULAR (GOITEROUS) NODULE (B[place]ESDA CATEGORY II), SEE COMMENT. COMMENT: MICROSCOPIC EXAMINATION REVEALS A HYPOCELLULAR ASPIRATE, COMPOSED OF COLLOID, FEW FOLLICULAR GROUPS WITHOUT SIGNIFICANT ATYPIA AND BACKGROUND MACROPHAGES. THESE FINDINGS FAVOR A BENIGN FOLLICULAR (GOITEROUS) NODULE. CORRELATION WITH CLINICAL AND RADIOGRAPHIC FINDINGS IS RECOMMENDED TO ENSURE THAT THE NODULE HAS BEEN ADEQUATELY SAMPLED. ACCORDING TO THE [place] REPORTING SYSTEM FOR THYROID CYTOPATHOLOGY, THE RISK OF MALIGNANCY IN THE CATEGORY BENIGN-CATEGORY II IS 0-3%; THEREFORE RECOMMEND CONTINUED ULTRASOUND SURVEILLANCE WITH REPEAT FNA IF THE NODULE SIGNIFICANTLY INCREASES IN SIZE. Pathologist ICD10: E04.1 Signed out by: Nando Carrero MD, Pathologist NPI- [id number] Performed by: Maxx Vazquez, Senior Medical Director ([facility]) Gross description: 09 02, PINK, CLEAR Also received 1 RNA vial with expiration of , 9 quick dip stained, and 9 fixed in alcohol slides. /[facility] 07/04/2025 132[address] [facility] FLAG LEGEND: L-Low Normal,H-High Normal,LL-Alert Low,HH-Alert High <-Panic Low,>-Panic High,A-Abnormal,AA-Critical Abnormal Performed at: 01 [address], [place] [address] Lakhwinder Logan MD, Performed at: [address], [place], [place] [id number] MD Lakhwinder Logan MD Phone: [phone]
--- NOTE | 2025-07-01 13:40 | DI.US.S_ITS ---
PROCEDURE: US FINE NEEDLE ASPIRATION INDICATIONS: Right sided thyroid nodule TECHNIQUE: The indications, alternatives, benefits, risks, and complications of the procedure were explained to the patient. Written informed consent was obtained and placed in the chart. The thyroid region was examined sonographically and a site was chosen for ultrasound guided percutaneous sampling. The skin was prepared and draped in the usual fashion, and anesthetized with 1% lidocaine infiltrated from the skin down to the thyroid gland. Multiple passes were then performed, with contents emptied into an appropriate pathology specimen container. A bandage was applied to the area of access at completion of the study. COMPARISON: [facility], , US THYROID, 06/09/2025, 14:40. FINDINGS: Location(s) of lesion(s) sampled: Right mid to inferior thyroid lobe TR 3 cystic and solid nodule Melvin: 25 gauge hypodermic needles. Number of passes: 9, with attempted aspiration on pass 5. Medications: 1% lidocaine for local anaesthesia. Complications: None. IMPRESSION: Successful ultrasound-guided thyroid nodule fine needle aspiration, with cytology results pending. Please see chart below for management recommendations based on cytology results. [facility] ReportingRecommendationsNon-diagnostic* Repeat US-guided FNA, with on-site cytology evaluation if possible. * Repeated non-diagnostic nodules without high suspicion US features: close observation vs surgical consult. * Consider surgery if nodule has high suspicion US features, grows >20% in 2 dimensions on followup, or patient has clinical risk factors for malignancy. Benign* If nodule has high suspicion US features: repeat US and FNA within 12 months. * If nodule has low to intermediate suspicion US features: repeat US at 12-24 months. If nodule grows (20% increase in at least 2 dimensions, with minimal increase of 2 mm or >50% change in volume), or development of new suspicious US features, then repeat FNA or continue followup. * If nodule has very low suspicion US features: followup US at >24 months. Atypia of undetermined significance, follicular lesion of undetermined significanceRepeat FNA, molecular testing, followup US, or surgical consult.Follicular neoplasm, suspicious for follicular neoplasmSurgical consult; also consider molecular testing. Suspicious for malignancySurgical consult.MalignantSurgical consult. Dictated by: Shivam Christianson M.D. on 07/01/2025 at 15:18 Approved by: Shivam Christianson M.D. on 07/01/2025 at 15:19
--- NOTE | 2025-07-01 14:56 | DI.MG.S_ITS ---
MM screening mammo implant BI: 07/01/2025. BI-RADS: 2 CLINICAL: 75-year old female for bilateral screening mammogram. Tyrer-Cuzick lifetime risk of 1.5%. No personal or first-degree family history of breast cancer. The patient has bilateral implants. PRIOR EXAMS 03/02/2020, 03/16/2018. MAMMOGRAPHY TECHNIQUE: 2D and 3D (tomosynthesis) digital mammographic views obtained, with additional images as needed for full coverage. Current study was also evaluated with a Computer Aided Detection (CAD) system. DENSITY A. The breasts are almost entirely fatty. IMPLANTS Breast implants present. MAMMOGRAPHY FINDINGS Bilateral: There are no suspicious masses, calcifications, or other findings in the breast. IMPRESSION: * No evidence of malignancy with benign findings. RECOMMENDATIONS Bilateral * Annual screening mammography. OVERALL ASSESSMENT CATEGORY BI-RADS-2: Benign. The [employer] recommends annual screening mammography beginning at age 40 for women with average risk of breast cancer. ELECTRONICALLY SIGNED: Julia Garcia M.D. on 07/05/2025 at 12:06:53 PM PT Interpreting Station ID: [id number]
== END ==
PROVIDERS: PCP Family Medicine; Referring Provider Family Medicine; Visit Provider Family Medicine
DX: Z12.31 Encounter for screening mammogram for malignant neoplasm of breast (principal); E04.1 Nontoxic single thyroid nodule; R92.313 Mammographic fatty tissue density, bilateral breasts; Z98.82 Breast implant status
CPT/HCPCS: 10005; 77063; 77067

== ENCOUNTER → 2025-07-07 14:51 | Outpatient (CLI) | payer MEDICARE, OTHER, SELFPAY ==
[2023-02-22 15:06] VITALS: BMI 32.4
== END ==
LOC: RESP 14:53
PROVIDERS: PCP Family Medicine; Referring Provider Family Medicine; Visit Provider Family Medicine
DX: J44.9 Chronic obstructive pulmonary disease, unspecified (principal); Z87.891 Personal history of nicotine dependence; R91.8 Other nonspecific abnormal finding of lung field
CPT/HCPCS: 94060; 94726; 94729